=== PATIENT | male | born 1935 | race Caucasian/White ===

== ENCOUNTER → 2016-12-12 | Outpatient (CLI) | payer OTHER ==
[~2016-12-12] MED LIST: ACET325T96 PO; FAMO20TA11 PO; PILO5TAB10 PO
[2016-12-12 13:55] VITALS: BP 91/52; PULSE 90; TEMP 36.8; O2SAT 95
--- NOTE | 2016-12-12 16:14 | Radiation Oncology Follow-Up ---
Radiation Oncology Follow-Up Date of Visit Dec 12, 2016. 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 Frias is a 81-year-old gentleman who initially presented in July 2015 with a sore throat and hoarseness of the throat. He was seen by Dr. Klein who performed an examination which showed edema in the left piriform sinus and left vocal cord paresis. He did order a CT neck which was completed on 07/14/2015 which showed: "Pharynx: The nasopharynx and oropharynx are normal in appearance. There is ill-defined abnormal soft tissue seen within the laryngopharynx eccentric to the left at the level of the thyroid cartilage at or just above the level of the false cords. This is highly concerning for mass lesion and is best seen on image #155. This measures approximately 2 x 2.5 cm in diameter. This causes narrowing of the pharyngeal airway at this level, and also causes mild mass effect on the left piriform sinus There is no clear evidence of invasion of the parapharyngeal fat. The vocal cords are symmetric as imaged. The prevertebral/retropharyngeal soft tissues are within normal limits. Lymphadenopathy: No cervical lymphadenopathy is seen." He also had a CT chest completely the same day which only showed 2 subcentimeter pulmonary nodules and he was recommended only to follow up with repeat imaging in 1 year. The patient was then seen by Dr. 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 At that time, the patient also had a gastrostomy tube placed and a tracheostomy placed as well. The patient underwent a PET/CT scan on 09/29/2015 which revealed a 3.5 cm mass in the region of the left piriform sinus extending inferiorly to the left arytenoid cartilage with SUV uptake of 13.2. There was no noted cervical lymphadenopathy. There was also no evidence of any other metastatic disease. The patient's case was discussed in the multidisciplinary clinic and the patient was also seen by radiation oncology (Dr. Marion). The final recommendation was for consideration of definitive chemotherapy and radiation therapy. Status post completion of combined radiation and chemotherapy. Radiation completed 12/31/2015 received 6996 cGy. (Sandra Mckeon PA-C) Interim History He has been doing well over the past 6 months. He does have issues with xerostomia. This occurs especially at night. He does run a humidifier in his room. He is using Biotene products. He has edema of the chin. He was referred to lymphedema therapy and received treatment. He does feel that it did help with some swelling. He had previously been followed by Dr. Girard and is now being followed by Dr. Jefferson. He had a scoping 2 weeks ago and is doing well with no recurrence. He does have some hoarseness of the voice. He has developed an area of discomfort in the epigastric area where he had his PEG tube. He notes that after eating a distention is noted that becomes firm. This is quite uncomfortable and he has to sit and relax for a period of time till the firm area goes down. He denies any associated nausea or vomiting. (Sandra Mckeon PA-C) Allergies Coded Allergies: No Known Allergies (Unverified , 12/02/15) Home Medications Scheduled Famotidine (Pepcid), 20 MG PO BID Scheduled PRN Acetaminophen Tab (Tylenol), 650 MG PO Q6 PRN for Mild Pain Review of Systems Gastrointestinal: Symptoms: WNL Oral: Symptoms: Scant Saliva/Dry Mouth Other Oral Symptoms: " I carry a water bottle with me all the time " Respiratory: Symptoms: Dry Cough, SOB With Exertion Urinary: Symptoms: Nocturia Comments: nocturia 4 - 5 times- drinks water all the time Skin: Other Skin Symptoms: had skin cancer removed from right arm, left hand and right side of head (Sandra Mckeon PA-C) Physical Exam Vital Signs Date Time Temp Pulse Resp B/P Pulse Ox O2 Delivery O2 Flow Rate FiO2 12/12/16 13:55 36.8 90 20 91/52 95 Pain: Side: Bilateral Patient Pain Scale: 0 - 10 Initial Pain Intensity: 0.0 Fatigue: None General Appearance: no apparent distress Eyes: normal inspection, EOMI ENT: normal ENT inspection, hearing grossly normal Neck: no adenopathy, + pertinent finding (submental edema) Respiratory/Chest: lungs clear, no respiratory distress, no accessory muscle use Cardiovascular: regular rate, rhythm, no gallop, no murmur Abdomen: non tender, soft, no organomegaly, + hernia (there is a palpable hernia in the epigastric area. Scar is noted from the prior PEG tube.) Extremities: no pedal edema Neurologic/Psychiatric: no motor/sensory deficits, alert, normal mood/affect Skin: warm/dry Lymphatic: no adenopathy (Sandra Mckeon PA-C) Laboratory Studies Test 09/21/16 14:17 White Blood Count 4.56 K/uL (4.8-10.8) Red Blood Count 4.27 M/uL (4.7-6.1) Hemoglobin 12.7 g/dL (14.0-18.0) Hematocrit 38.3 % (42-52) Mean Corpuscular Volume 89.7 fL (80-100) Mean Corpuscular Hemoglobin 29.7 pg (25-34) Mean Corpuscular Hemoglobin Concent 33.2 g/dl (32-36) Platelet Count 152 K/uL (130-400) Mean Platelet Volume 10.2 fL (7.4-10.4) Neutrophils (%) (Auto) 59.4 % Lymphocytes (%) (Auto) 25.7 % Monocytes (%) (Auto) 12.5 % Eosinophils (%) (Auto) 2.0 % Basophils (%) (Auto) 0.2 % Neutrophils # (Auto) 2.71 K/uL (1.4-6.5) Lymphocytes # (Auto) 1.17 K/uL (1.2-3.4) Monocytes # (Auto) 0.57 K/uL (0.11-0.59) Eosinophils # (Auto) 0.09 K/uL (0-0.5) Basophils # (Auto) 0.01 K/uL (0-0.2) RDW Standard Deviation 42.7 fL (36.4-46.3) RDW Coefficient of Variation 13.1 % (11.5-14.5) Immature Granulocyte % (Auto) 0.2 % Immature Granulocyte # (Auto) 0.01 K/uL (0.00-0.02) Sodium Level 141 mmol/L (136-145) Potassium Level 3.9 mmol/L (3.5-5.1) Chloride Level 107 mmol/L (98-107) Carbon Dioxide Level 27 mmol/L (21-32) Anion Gap 7.0 mmol/L (3-11) Blood Urea Nitrogen 12 mg/dl (7-18) Creatinine 0.73 mg/dl (0.60-1.40) Est Creatinine Clear Calc Drug Dose 86.0 ml/min Estimated GFR () 102.2 Estimated GFR (Non- 88.2 BUN/Creatinine Ratio 16.6 (10-20) Random Glucose 92 mg/dl (70-99) Calcium Level 9.0 mg/dl (8.5-10.1) Total Bilirubin 0.3 mg/dl (0.2-1) Aspartate Amino Transferase (AST) 21 U/L (15-37) Alanine Aminotransferase (ALT) 21 U/L (12-78) Alkaline Phosphatase 84 U/L (45-117) Lactate Dehydrogenase 164 U/L (87-241) Total Protein 7.2 gm/dl (6.4-8.2) Albumin 3.6 gm/dl (3.4-5.0) Globulin 3.6 gm/dl (2.5-4.0) Albumin/Globulin Ratio 1.0 (0.9-2) (Sandra Mckeon PA-C) Assessment & Plan The patient was seen and examined by Dr. Hebert. He'll continue the follow-up scoping's through ENT. A prescription was given for Salagen 5 mg to take 1 at bedtime to see if this helps with his xerostomia. He'll continue with the Biotene products as well as humidification. He can continue massage treatment to the submental area. He is being referred to surgery for the hernia in the epigastric area that occurred post-PEG tube placement. We asked him to return to our office in 6 months. He may change that to 9 and alternate with . (Sandra Mckeon PA-C) I agree with note created by Sandra Mckeon PA-C. I reviewed the patient's chart and information with her. I have examined and evaluated the patient. I reviewed relevant clinical information and answered the patient's and/or family' s questions. (Veeral. Hebert MD) Total Time In Follow-Up I spent 25 minutes speaking to the patient and performing examination. I spent 15 minutes reviewing information in completing this note. (Sandra Mckeon PA-C) I spent 15 minutes examining and counseling the patient. (Veeral. Hebert MD) Copy To Lorne Perez MD; Harry Rodriguez M.D.
== END | disposition home or self-care (01) ==
LOC: C.ONC 13:36
PROVIDERS: ATTEND Physician Assistant Medical
DX: Z08 Encounter for follow-up examination after completed treatment for malignant neoplasm (principal); Z92.3 Personal history of irradiation; Z85.819 Personal history of malignant neoplasm of unspecified site of lip, oral cavity, and pharynx

== ENCOUNTER → 2016-12-29 | Day surgery (SDC) | payer OTHER ==
[2016-12-18 14:47] VITALS: Ht 177.8 cm; Wt 83.6 kg
[~2016-12-29] VITALS: Ht 177.8 cm; Wt 83.6 kg
[~2016-12-29] MED LIST changes: -ACET325T96 PO; +LIDOCAINE HCL 2% 2 ML VIAL (20MG/ML) ONE; +ONDANSETRON INJ 2 MG/ML 2 ML VIAL ONE; +PROPOFOL IV EMULSION 10 MG/ML 20 ML VIAL IV ONE; +SODIUM CHLORIDE 0.9% 500ML 500 ML IV ONE
--- NOTE | 2016-12-29 10:41 | Endo History and Physical ---
History & Physical Date of Service: Dec 29, 2016. Chief Complaint: screening Referring Physician: Dr. Harry Rodriguez History of Present Illness 81 yo CM who presents for screening colonoscopy. Past Medical History Reflux, Cancer Past Surgical History Hx Cardiac Surgery: No Hx Internal Defibrillator: No Hx Pacemaker: No Hx Abdominal Surgery: No Hx of Implantable Prosthesis: No Hx Post-Op Nausea and Vomiting: No Hx Cancer Surgery: Yes (BCC REMOVAL, THROAT BIOPSY) Hx Thoracic Surgery: No Hx Orthopedic: No Hx Urinary Tract Surgery: No Family History None Social History Smoking Status: Former Smoker Hx Substance Use: No Hx Alcohol Use: Yes (QUIT 17 YEARS AGO) Allergies Coded Allergies: No Known Allergies (Verified , 12/29/16) Current Medications Reported Home Medications Medications Dose Route/Sig Max Daily Dose Days Date Category Salagen (Pilocarpine HCl) 5 Mg Tab 5 Mg PO HS 12/18/16 Reported Pepcid (Famotidine) 20 Mg Tab 20 Mg PO BID 10/27/15 Reported Vital Signs Weight (Kilograms): 83.64 Height (Feet): 5 Height (Inches): 10 Physical Exam General Appearance: WD/WN, no apparent distress Respiratory/Chest: Auscultation: breath sounds normal Cardiovascular: Heart Auscultation: RRR Abdomen: Bowel Sounds: normal Inspection & Palpation: soft, non-distended, no tenderness, guarding & rebound Assessment and Plan Assessment: 81 yo CM who presents for screening colonoscopy. Plan: Proceed with colonoscopy.
--- NOTE | 2016-12-29 11:36 | GI REPORT ---
Procedure Date: 12/29/2016 11:02 AM Procedure: Colonoscopy Indications: Screening for colorectal malignant neoplasm Medicines: Monitored Anesthesia Care Complications: No immediate complications. Estimated Blood Loss: Estimated blood loss: none. Procedure: Pre-Anesthesia Assessment: - Prior to the procedure, a History and Physical was performed, and patient medications and allergies were reviewed. The patient's tolerance of previous anesthesia was also reviewed. The risks and benefits of the procedure and the sedation options and risks were discussed with the patient. All questions were answered, and informed consent was obtained. Prior Anticoagulants: The patient has taken no previous anticoagulant or antiplatelet agents. ASA Grade Assessment: III - A patient with severe systemic disease. After reviewing the risks and benefits, the patient was deemed in satisfactory condition to undergo the procedure. After I obtained informed consent, the scope was passed under direct vision. Throughout the procedure, the patient's blood pressure, pulse, and oxygen saturations were monitored continuously. The On-site loaner was introduced through the anus and advanced to the terminal ileum. The colonoscopy was performed without difficulty. The patient tolerated the procedure well. The quality of the bowel preparation was good. The terminal ileum, ileocecal valve, appendiceal orifice, and rectum were photographed. Findings: Four sessile polyps were found in the sigmoid colon. The polyps were 5 to 7 mm in size. These polyps were removed with a hot snare. Resection and retrieval were complete. Multiple small-mouthed diverticula were found in the sigmoid colon. Non-bleeding internal hemorrhoids were found during retroflexion. The hemorrhoids were small. Impression: - Four 5 to 7 mm polyps in the sigmoid colon, removed with a hot snare. Resected and retrieved. - Diverticulosis in the sigmoid colon. - Non-bleeding internal hemorrhoids. Recommendation: - Resume previous diet. - Continue present medications. - Repeat colonoscopy for surveillance based on pathology results. - Return to primary care physician as previously scheduled. Osiel Moore, DO 12/29/2016 11:35:49 AM This report has been signed electronically. Note Initiated On: 12/29/2016 11:02 AM I attest to the content of the Intraoperative Record and orders documented therein, exceptions below
--- NOTE | 2016-12-29 11:38 | Discharge Instructions ---
Endoscopy Patient Instructions Date / Procedure(s) Performed Dec 29, 2016. Colonoscopy Allergy Information Coded Allergies: No Known Allergies (Verified , 12/29/16) Discharge Date / Findings Dec 29, 2016. Colon polyps Diverticulosis Internal hemorrhoids Medication Instructions OK to resume all medications today as prescribed. Reported Home Medications Medications Dose Route/Sig Max Daily Dose Days Date Category Salagen (Pilocarpine HCl) 5 Mg Tab 5 Mg PO HS 12/18/16 Reported Pepcid (Famotidine) 20 Mg Tab 20 Mg PO BID 10/27/15 Reported Provider Instructions Activity Restrictions - No exercising or heavy lifting for 24 hours. - Do not drink alcohol the day of the procedure. - Do not drive a car or operate machinery until the day after the procedure. - Do not make any important decisions or sign important papers in 24 hours after the procedure. Following Day: - Return to full activity which may include returning to work/school. Diet Start your diet with liquids and light foods (jello, soup, juice, toast). Then eat your usual diet if not nauseated. Treatment For Common After Affects For mild abdominal pain, bloating, or excessive gas: - Rest - Eat lightly - Lie on right side Follow-Up Information Follow-up with Dr. Harry Rodriguez as scheduled Anesthesia Information What You Should Know You have had a procedure that required some medicine to reduce anxiety and discomfort. This treatment is called moderate sedation. After receiving the treatment, you may be sleepy, but you will be able to breathe on your own. The effects of the treatment may last for several hours. Follow these instructions along with Activity/Diet recommendations noted above: * Do NOT do anything where dizziness or clumsiness would be dangerous. * Rest quietly at home today, then you can be up and about tomorrow. * Have a responsible person stay with you the rest of today. * You may have had an I.V. today. If so, you may take the dressing off later today. Recommendations Call your doctor if: * Trouble breathing * Continuous vomiting for more than 24 hours * Temperature above 101 degrees * Severe abdominal pain or bloating * Pain not relieved by pain medicine ordered * There is increased drainage or redness from any incision * A large amount of rectal bleeding greater than 2-3 tablespoons. (If you had a polyp/s removed or have hemorrhoids, a small amount of blood - from the rectum is to be expected.) * You have any unanswered questions or concerns. IN THE EVENT OF A SERIOUS EMERGENCY, GO TO THE NEAREST EMERGENCY ROOM Your discharge instructions were prepared by provider Osiel Moore. Patient Instructions Signature Page Dilshad Frias Patient (or Guardian) Signature/Date: I have read and understand the instructions given to me by my caregivers. Caregiver/RN/Doctor Signature/Date: The above-named patient and/or guardian has received patient instructions on this date. + Original Patient Signature Page (only) stays with chart. Please make copy for patient.
[2016-12-29 12:06] VITALS: BP 137/89; PULSE 78; O2SAT 95
--- NOTE | 2016-12-29 12:42 | Anesthesiology Progress Note ---
Anesthesia Post Op Note Date & Time Dec 29, 2016 at 12:42 Vital Signs Pain Intensity: 0 Vital Signs Past 12 Hours Date Time Temp Pulse Resp B/P Pulse Ox O2 Delivery O2 Flow Rate FiO2 12/29/16 12:06 78 20 137/89 95 Room Air 12/29/16 11:51 82 18 107/58 95 Room Air 12/29/16 11:36 86 18 119/59 97 Room Air 12/29/16 10:35 36.8 109 22 180/91 98 Room Air Notes Mental Status: alert / awake / arousable, participated in evaluation Pt Amnestic to Procedure: Yes Nausea / Vomiting: adequately controlled Pain: adequately controlled Airway Patency, RR, SpO2: stable & adequate BP & HR: stable & adequate Hydration State: stable & adequate Anesthetic Complications: no major complications apparent
== END | disposition home or self-care (01) ==
LOC: C.GI 10:12
PROVIDERS: ATTEND Internal Medicine
DX: Z12.11 Encounter for screening for malignant neoplasm of colon (principal); D12.5 Benign neoplasm of sigmoid colon; K57.30 Diverticulosis of large intestine without perforation or abscess without bleeding; K64.8 Other hemorrhoids; K21.9 Gastro-esophageal reflux disease without esophagitis; Z85.828 Personal history of other malignant neoplasm of skin; Z87.891 Personal history of nicotine dependence; Z68.27 Body mass index [BMI] 27.0-27.9, adult; Z98.49 Cataract extraction status, unspecified eye

== ENCOUNTER → 2017-01-11 | Outpatient (CLI) | payer OTHER ==
[~2017-01-11] MED LIST changes: -LIDOCAINE HCL 2% 2 ML VIAL (20MG/ML) ONE; -ONDANSETRON INJ 2 MG/ML 2 ML VIAL ONE; -PROPOFOL IV EMULSION 10 MG/ML 20 ML VIAL IV ONE; -SODIUM CHLORIDE 0.9% 500ML 500 ML IV ONE
== END | disposition home or self-care (01) ==
LOC: C.PATHSPEC 16:39
PROVIDERS: ATTEND Dermatology
DX: L57.0 Actinic keratosis (principal); C44.622 Squamous cell carcinoma of skin of right upper limb, including shoulder; D04.61 Carcinoma in situ of skin of right upper limb, including shoulder

== ENCOUNTER → 2017-02-15 | Outpatient (CLI) | payer OTHER | END | disposition home or self-care (01) | LOC: C.PATHSPEC 16:48 | PROVIDERS: ATTEND Dermatology | DX: L57.0 Actinic keratosis (principal) ==

== ENCOUNTER → 2017-03-23 | Outpatient (CLI) | payer OTHER ==
[~2017-03-23] MED LIST changes: +OPTIRAY 320 IV PRN; -PILO5TAB10 PO
--- NOTE | 2017-03-23 08:01 | DIAGNOSTIC IMAGING REPORT ---
CT OF THE CHEST WITH IV CONTRAST CLINICAL HISTORY: HEAD/NECK CANCER COMPARISON STUDY: 07/14/2015 TECHNIQUE: Following the IV administration of 92 mL of Optiray-320, CT of the thorax was performed from the thoracic inlet to the lung bases. Images are reviewed in the axial, sagittal, and coronal planes. IV contrast was administered without complication. CT DOSE: FINDINGS: There is piriform sinus asymmetry. The findings in the neck will be discussed in a separate CT scan of the neck report Thyroid: Imaged portions of the thyroid gland are normal in appearance. Thoracic aorta: The thoracic aorta is normal in course and caliber, noting standard 3-vessel arch anatomy. No aneurysm or dissection is seen. Pulmonary vasculature: The pulmonary trunk is normal in caliber. There are no central filling defects identified to suggest pulmonary embolus. Note that this examination was not protocoled for the evaluation of pulmonary emboli. HEART: The heart is normal in size and configuration, without pericardial effusion. Lungs and pleural spaces: There are no pleural effusions. There is mild dependent atelectasis. There is no lobar pulmonary consolidation. There are minor apical groundglass opacities. The findings while nonspecific could be secondary to radiation therapy. There is a stable 4 mm right upper lobe perifissural solid pulmonary nodule. There is a stable solid subpleural 4 mm left lower lobe pulmonary nodule. There is a right middle lobe calcified granuloma. Mediastinum: There is no mediastinal lymphadenopathy. Jillian: Clear. Axilla: Clear. Upper abdomen: There is a fat-containing ventral hernia. Skeletal structures: There are no lytic or blastic osseous lesions. IMPRESSION: 1. Partially visualized supraglottic mass. This will be reported separately in a CT scan of the neck. 2. Stable 4 mm right upper lobe pulmonary nodule and stable 4 mm left lower lobe pulmonary nodule 3. 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 Electronically signed by: Iban Kunz M.D. 03/23/2017 8:00 AM Dictated Date/Time: 03/23/2017 7:53 AM
--- NOTE | 2017-03-23 08:02 | DIAGNOSTIC IMAGING REPORT ---
CT soft tissue neck SOFT TISSUE NECK WITH CLINICAL HISTORY: HEAD/NECK CANCER carcinoma TECHNIQUE: Transaxial acquisition of multi axial reformatted images COMPARISON STUDY: 07/14/2015 FINDINGS: Considerable improvement in the exam. The left laryngeal lesion previously described has essentially resolved. There is mild residual fibrotic change. There is no deviation of midline structures. There is no significant cervical adenopathy. Slight increase in fat density is noted bilaterally consistent with post treatment in a post radiation change. Study again is negative for recurrent lesion. No evidence for bony erosive process. Mild apical fibrotic changes the lungs most likely on a post radiation bases. IMPRESSION: 1. Considerable improvement compared to the prior study. 2. The left laryngeal mass lesion has essentially resolved with no significant residual. 3. Mild post treatment and/or post radiation soft tissue change. Electronically signed by: Shorty Santo M.D. 03/23/2017 8:00 AM Dictated Date/Time: 03/23/2017 7:53 AM
== END | disposition home or self-care (01) ==
LOC: C.CTS 07:27
PROVIDERS: ATTEND Internal Medicine Hematology & Oncology
DX: C76.0 Malignant neoplasm of head, face and neck (principal); R91.8 Other nonspecific abnormal finding of lung field

== ENCOUNTER 2017-03-26 04:59 | Day surgery (SDC) | payer OTHER ==
[2017-03-15 08:09] VITALS: BMI 28.0
--- NOTE | 2017-03-15 08:42 | PAT Medication Instructions ---
Service Date Mar 15, 2017. Current Home Medication List Famotidine (Pepcid), 20 MG PO BID Medication Instructions For Your Scheduled Surgery - Hold the following medications the morning of surgery: Famotidine (Pepcid), 20 MG PO BID If you have any questions please call us at [phone] or [phone] or [phone]
[2017-03-15 09:45] LABS: BASO % 0.3 %; BASO ABS # 0.01 K/uL (0-0.2); COMPLETE YES; EOS % 0.3 %; IG% 0.5 %; LYMPH % 26.1 %; LYMPH ABS # 1.02 K/uL (1.2-3.4); MEAN CELL VOLUME 88.1 fL (80-100); MEAN CORPUSCULAR HEMOGLOBIN 28.7 pg (25-34); MEAN CORPUSCULAR HGB CONC 32.6 g/dl (32-36); MEAN PLATELET VOLUME 10.7 fL (7.4-10.4); MONO % 14.3 %; NEUT % 58.5 %; PLATELET COUNT 122 K/uL (130-400); RED BLOOD COUNT 5.22 M/uL (4.7-6.1); WHITE BLOOD COUNT 3.91 K/uL (4.8-10.8)
[2017-03-15 10:26] LABS: CALCIUM 9.1 mg/dl (8.5-10.1); CREATININE 0.9 mg/dl (0.60-1.40); POTASSIUM 4.2 mmol/L (3.5-5.1)
[~2017-03-26] VITALS: Ht 177.8 cm; Wt 88.2 kg
[~2017-03-26 04:59] MED LIST changes: -OPTIRAY 320 IV PRN
[2017-03-26 05:30] VITALS: BP 162/83; PULSE 79; TEMP 36.9; O2SAT 97; Ht 177.8 cm; Wt 88.2 kg
[2017-03-26] MEDS ORDERED: LACTATED RINGER'S 1000ML 1,000 ML IV SCH (06:00)
[2017-03-26] MEDS ORDERED: CEFAZOLIN 2000 MG/60 ML D5W IV SCH (06:00)
[2017-03-26] MEDS ORDERED: PROPOFOL IV EMULSION 10 MG/ML 20 ML VIAL IV ONE (06:44)
[2017-03-26] MEDS ORDERED: FENTANYL CITRATE INJ 50 MCG/1 ML 2 ML VIAL ONE ×2 (06:44→07:40)
[2017-03-26] MEDS ORDERED: LIDOCAINE HCL 2% 2 ML VIAL (20MG/ML) ONE (06:44)
[2017-03-26] MEDS ORDERED: ATROPINE SULFATE 0.1 MG/ML 5ML SYR IV PRN (06:45)
[2017-03-26] MEDS ORDERED: ONDANSETRON INJ 2 MG/ML 2 ML VIAL IV PRN ×2 (06:45→09:00)
[2017-03-26] MEDS ORDERED: EpHEDrine SULFATE INJ 50 MG/ML AMP IV PRN (06:45)
[2017-03-26] MEDS ORDERED: HYDROmorphone INJ 1 MG/ML SYR IV PRN (06:45)
[2017-03-26] MEDS ORDERED: BUPIVACAINE 0.5 % 5 MG/1 ML MPF 30ML VIAL ONE (06:50)
--- NOTE | 2017-03-26 06:50 | History & Physical Bridge Note ---
H&P Re-Evaluation Bridge Note: I have examined the patient, reviewed the History & Physical and in the interval since the performance of the History & Physical I have noted the following changes of clinical significance: No changes noted
[2017-03-26] MEDS ORDERED: NEOSTIGMINE METHYLSULFATE 5 MG/5 ML SYR ONE (07:20)
[2017-03-26] MEDS ORDERED: ONDANSETRON INJ 2 MG/ML 2 ML VIAL ONE (07:20)
[2017-03-26] MEDS ORDERED: DEXAMETHASONE SOD INJ 4 MG/ML VIAL ONE (07:20)
[2017-03-26] MEDS ORDERED: ROCURONIUM BROMIDE 10 MG/ML 5 ML VIAL ONE (07:20)
[2017-03-26] MEDS ORDERED: GLYCOPYRROLATE INJ 0.2 MG/ML VIAL ONE (07:20)
[2017-03-26] MEDS ORDERED: SUCCINYLCHOLINE 100MG/5ML SYR IV ONE (07:45)
[2017-03-26] MEDS: FENTANYL CITRATE INJ 50 MCG/1 ML 2 ML VIAL IV PRN ×4 (08:45→09:00)
[2017-03-26] MEDS ORDERED: SODIUM CHLORIDE 0.9% 1000ML 1,000 ML IV SCH (08:54)
--- NOTE | 2017-03-26 08:54 | [facility] Post Operative Brief Note ---
Immediate Operative Summary Operative Date Mar 26, 2017. Pre-Operative Diagnosis Ventral hernia without obstruction or gangrene (primary encounter diagnosis) Post-Operative Diagnosis Ventral hernia without obstruction or gangrene (primary encounter diagnosis) Procedure(s) Performed Repair of Ventral Hernia Surgeon Dr. Shorty Giron Customer Insight Analyst Surgeon(s) None Estimated Blood Loss 5ML Findings See dictation Specimens None per surgeon Drains None Anesthesia General Complication(s) None Disposition Recovery Room / PACU
--- NOTE | 2017-03-26 08:58 | Discharge Instructions ---
Discharge Instructions Date of Service Mar 26, 2017. Admission Reason for Admission: Ventral Hernia Discharge Discharge Diagnosis / Problem: Same Discharge Goals Goal(s): Decrease discomfort Activity Recommendations Activity Limitations: per Instructions/Follow-up section Lifting Limitations: no more than 10 pounds (for 2 weeks) . Instructions / Follow-Up Instructions / Follow-Up ACTIVITY RECOMMENDATIONS: * Walk as much as possible. * No heavy lifting (>10 lbs.) for 6 weeks. SPECIAL CARE INSTRUCTIONS: * Ice to hernia repair site on and off until bedtime tonight. * May shower in 24 hours. Let water run over area and pat dry. * Leave steri strips on for one week. * Call the surgeon's office with any questions or concerns - (ex. temperature higher than 101 degrees F, excessive bleeding or pain). MEDICATIONS: Resume previous medications unless instructed otherwise by your surgeon. * Ibuprofen 600 mg every 6 hours with food * Percocet 1 every 4 hours, as needed for pain FOLLOW UP VISIT: If not already scheduled, please call the office to schedule a two week follow- up appointment. Office number Current Hospital Diet Patient's current hospital diet: Discharge Diet Recommended Diet: Regular Diet Procedures Procedures Performed: Repair of Ventral Hernia Pending Studies Studies pending at discharge: no Medical Emergencies . Who to Call and When: Medical Emergencies: If at any time you feel your situation is an emergency, please call 911 immediately. . Non-Emergent Contact Non-Emergency issues call your: Primary Care Provider, Surgeon Call Non-Emergent contact if: your pain is worsening, wound has increased redness, wound has increased pain . "Provider Documentation" section prepared by Shorty Giron. . VTE Core Measure Inpt VTE Proph given/why not?: Treatment not indicated
[2017-03-26] MEDS ORDERED: MoRPHine SULFATE 4 MG/ML 1 ML CARP\\VIAL IV PRN (09:00)
[2017-03-26] MEDS ORDERED: OXYCODONE/ACETAMINOPHEN 5-325 TAB PO PRN (09:00)
[2017-03-26 09:25] VITALS: BP 167/82; PULSE 69; TEMP 36.1; O2SAT 97
--- NOTE | 2017-03-26 09:26 | Anesthesiology Progress Note ---
Anesthesia Post Op Note Date & Time Mar 26, 2017 at 09:26 Vital Signs Pain Intensity: 3 Vital Signs Past 12 Hours Date Time Temp Pulse Resp B/P (MAP) Pulse Ox O2 Delivery O2 Flow Rate FiO2 03/26/17 09:10 36.5 60 16 172/72 96 Oxymask 3 03/26/17 09:00 63 16 166/85 97 Oxymask 3 03/26/17 08:50 36.3 62 16 165/86 99 Oxymask 6 03/26/17 08:42 36.3 65 18 176/88 100 Oxymask 10 03/26/17 05:30 36.9 79 20 162/83 (109) 97 Room Air Notes Mental Status: alert / awake / arousable, participated in evaluation Pt Amnestic to Procedure: Yes Nausea / Vomiting: adequately controlled Pain: adequately controlled Airway Patency, RR, SpO2: stable & adequate BP & HR: stable & adequate Hydration State: stable & adequate Anesthetic Complications: no major complications apparent
--- NOTE | 2017-03-26 09:39 | OPERATIVE REPORT ---
DATE OF OPERATION: 03/26/2017 PREOPERATIVE DIAGNOSIS: Ventral hernia. POSTOPERATIVE DIAGNOSIS: Same. PROCEDURE: Repair of ventral hernia. SURGEON: Dr. Giron. FINDINGS: The patient had a 2.5-3 cm defect at the site of his previous gastrostomy. There was nothing adherent to the inside of the sac. The stomach was not present in the sac. There were no other defects identified. TECHNIQUE: The patient was given a general anesthetic. The area was prepped and draped in usual sterile fashion. A transverse incision was made over the area of the scar from the gastrostomy carried down through the dermis. The hernia sac was identified and away from the surrounding subcutaneous tissue and off the underside of the dermis of the skin, using a blunt, sharp and cautery dissection, where appropriate. This dissection was carried down until the edges of the fascia could be identified around the entire circumference. The hernia sac was away from the edges of the hernia sac. The hernia sac was opened with findings as stated above. The hernia sac was then closed with running 2-0 Vicryl, and placed back into its anatomic position and the fascia was undermined creating a preperitoneal retrofascial space. Hemostasis was obtained using electrocautery. A 10 cm round Surgimesh was placed in the preperitoneal retrofascial space and tacked to the undersurface of the fascia using 0 PDS sutures. The fascial defect was closed with a #1 PDS. Deep subcutaneous tissue was closed with running 2-0 Vicryl. The superficial subcutaneous tissue was closed with running 3-0 Vicryl and skin was closed with 4-0 Monocryl in a running subcuticular fashion. The skin was anesthetized with 0.5% Marcaine without epinephrine. The skin was cleansed, dried, benzoin placed, Steri-Strips applied. Estimated blood loss was 5 mL. Sponge, needle and instrument counts were correct prior to closure. The patient tolerated the surgical procedure without complication and was transferred to recovery. I attest to the content of the Intraoperative Record and any orders documented therein. Any exception s are noted below.
[2017-03-26 09:55] VITALS: BP 143/78; PULSE 66; O2SAT 94
[2017-03-26 10:25] VITALS: BP 144/73; PULSE 64; O2SAT 93
== END 2017-03-26 11:14 | disposition home or self-care (01) ==
LOC: C.ACU 04:59
PROVIDERS: ATTEND Surgery
DX: K43.9 Ventral hernia without obstruction or gangrene (principal); Z68.28 Body mass index [BMI] 28.0-28.9, adult; Z98.890 Other specified postprocedural states

== ENCOUNTER → 2017-05-10 | Outpatient (CLI) | payer OTHER | END | disposition home or self-care (01) | LOC: C.PATH 17:18 | PROVIDERS: ATTEND Dermatology | DX: C44.320 Squamous cell carcinoma of skin of unspecified parts of face (principal) ==

== ENCOUNTER → 2017-06-21 | Outpatient (CLI) | payer OTHER ==
[2017-06-21 13:45] VITALS: BP 168/77; PULSE 81; TEMP 36.9; O2SAT 95
--- NOTE | 2017-06-21 14:46 | Radiation Oncology Follow-Up ---
Radiation Oncology Follow-Up Date of Visit Jun 21, 2017. 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 Holly is a 81-year-old gentleman who initially presented in July 2015 with a sore throat and hoarseness of the throat. He was seen by Dr. Klein who performed an examination which showed edema in the left piriform sinus and left vocal cord paresis. He did order a CT neck which was completed on 07/14/2015 which showed: "Pharynx: The nasopharynx and oropharynx are normal in appearance. There is ill-defined abnormal soft tissue seen within the laryngopharynx eccentric to the left at the level of the thyroid cartilage at or just above the level of the false cords. This is highly concerning for mass lesion and is best seen on image #155. This measures approximately 2 x 2.5 cm in diameter. This causes narrowing of the pharyngeal airway at this level, and also causes mild mass effect on the left piriform sinus There is no clear evidence of invasion of the parapharyngeal fat. The vocal cords are symmetric as imaged. The prevertebral/retropharyngeal soft tissues are within normal limits. Lymphadenopathy: No cervical lymphadenopathy is seen." He also had a CT chest completely the same day which only showed 2 subcentimeter pulmonary nodules and he was recommended only to follow up with repeat imaging in 1 year. The patient was then seen by Dr. 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 At that time, the patient also had a gastrostomy tube placed and a tracheostomy placed as well. The patient underwent a PET/CT scan on 09/29/2015 which revealed a 3.5 cm mass in the region of the left piriform sinus extending inferiorly to the left arytenoid cartilage with SUV uptake of 13.2. There was no noted cervical lymphadenopathy. There was also no evidence of any other metastatic disease. The patient's case was discussed in the multidisciplinary clinic and the patient was also seen by radiation oncology (Dr. Marion). The final recommendation was for consideration of definitive chemotherapy and radiation therapy. Status post completion of combined radiation and chemotherapy. Radiation completed 12/31/2015 received 6996 cGy. Interim History He's been doing well over the past 6 months. He has noted no change in the voice quality. 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 At his last visit he was given Salagen. He was to take 1 at bedtime to help with the dryness of the mouth at night. He stated that this did not help. We also have recommended hydration with a humidifier in his room at night. He also feels that this did not help. He has been seen and followed up by ENT and did have a recent scoping. This was performed on 06/07/2017. This showed stable significant post radiation edema involving the arytenoids and the interarytenoid region, there is no definite mass or lesion. Overall his glottic airway is narrowed and true vocal cord fold mobility is limited. 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 He was seen at the lymphedema clinic. He was given therapy. He is now discharged from the clinic but continues to do therapy exercises at home as he was instructed. He does note that the edema is much firmer at night compared to in the morning. He has had recheck scanning with CT of the soft tissues of the neck as well as the chest on 03/23/2017. This was reviewed with him by Dr. galeano. He was pleased to hear that this has shown considerable improvement. Allergies Coded Allergies: No Known Allergies (Verified , 03/26/17) Home Medications Scheduled Famotidine (Pepcid), 20 MG PO BID Review of Systems Gastrointestinal: Symptoms: WNL Oral: Symptoms: No Problems Respiratory: Symptoms: WNL, Dry Cough, SOB With Exertion Other Respiratory: Currently getting over a cold Urinary: Symptoms: WNL Skin: Symptoms: No Problems Physical Exam Vital Signs Date Time Temp Pulse Resp B/P (MAP) Pulse Ox O2 Delivery O2 Flow Rate FiO2 06/21/17 13:45 36.9 81 20 168/77 95 Fatigue: None General Appearance: no apparent distress Eyes: normal inspection, EOMI ENT: normal ENT inspection, hearing grossly normal, pharynx normal (there are no visible lesions of the tongue, buccal mucosa, floor the mouth, and pharynx.) Neck: no adenopathy, thyroid normal, + pertinent finding (there is firm submental edema. There are no masses or tenderness and no lymphadenopathy.) Respiratory/Chest: lungs clear, no respiratory distress, no accessory muscle use Cardiovascular: regular rate, rhythm, no gallop, no murmur Neurologic/Psychiatric: no motor/sensory deficits, alert, normal mood/affect Skin: warm/dry Additional Studies Patient: OLY HOLLY Address1: [address] [place] [address] Rec: [id number] Address2: Acct ID: [id number] [facility] Zip: [place] [address] Date: 1935 Sex: M Room/Bed: Ref Phy: Harry Rodriguez M.D. SC: C.CTS Att Phy: Oly Fuentes D.O. Report #: [id number] Mary Phy: Harry Rodriguez M.D. Test: NCKW Admit Phy: Gas Regulator Repairer Helper: GUILLERMO Interpreting Phy: Shorty Santo M.D. Diagnosis: HEAD/NECK CA Ordering Phy: Oly Fuentes D.O. Service Date: 03/23/17 Admit Date: 03/23/17 MNE: [id number] CONF: DICTATED BY: Shorty Santo M.D.]] CC: Oly Fuentes D.O., Dennis, M.D. Endcc: [~ rep ct add3]] CT soft tissue neck SOFT TISSUE NECK WITH CLINICAL HISTORY: HEAD/NECK CANCER carcinoma TECHNIQUE: Transaxial acquisition of multi axial reformatted images COMPARISON STUDY: 07/14/2015 FINDINGS: Considerable improvement in the exam. The left laryngeal lesion previously described has essentially resolved. There is mild residual fibrotic change. There is no deviation of midline structures. There is no significant cervical adenopathy. Slight increase in fat density is noted bilaterally consistent with post treatment in a post radiation change. Study again is negative for recurrent lesion. No evidence for bony erosive process. Mild apical fibrotic changes the lungs most likely on a post radiation bases. IMPRESSION: 1. Considerable improvement compared to the prior study. 2. The left laryngeal mass lesion has essentially resolved with no significant residual. 3. Mild post treatment and/or post radiation soft tissue change. Electronically signed by: Shorty Santo M.D. 03/23/2017 8:00 AM Dictated Date/Time: 03/23/2017 7:53 AM Assessment & Plan Plan: Continue regular follow-up with ENT with recheck scoping. He was seen on 06/07/2017. He has a recheck appointment to be seen there again in 6 months. We asked him to return to our office in 1 year. He may call if he has any questions or concerns in the interim. Total Time In Follow-Up I spent 20 minutes speaking to the patient and performing examination. I spent 15 minutes reviewing information in completing this note. Copy To Lorne Perez MD; Harry Rodriguez M.D.
== END | disposition home or self-care (01) ==
LOC: C.ONC 13:11
PROVIDERS: ATTEND Physician Assistant Medical
DX: Z08 Encounter for follow-up examination after completed treatment for malignant neoplasm (principal); Z92.3 Personal history of irradiation; Z85.818 Personal history of malignant neoplasm of other sites of lip, oral cavity, and pharynx

== ENCOUNTER → 2017-12-28 | Outpatient (CLI) | payer OTHER | END | disposition home or self-care (01) | LOC: C.PATHSPEC 17:29 | PROVIDERS: ATTEND Dermatology | DX: L57.0 Actinic keratosis (principal) ==

== ENCOUNTER 2020-08-25 02:41 | Observation (INO) ==
[2020-08-25] MEDS ORDERED: SODIUM CHLORIDE 0.9% 500 ML IV ONE (03:07)
[2020-08-25] MEDS ORDERED: ACETAMINOPHEN 500 MG TAB PO STA (03:07)
[2020-08-25] MEDS ORDERED: ONDANSETRON INJ 2 MG/ML 2 ML VIAL IV STA (03:07)
--- NOTE | 2020-08-25 03:13 | Emergency Department Note ---
Impression & Plan COVID-19 ED Provider Note NAME: OLY HOLLY AGE: 85 SEX: M ARRIVES VIA: Ambulance INFORMANT: Patient ED PROVIDER(S): Vani Walker DO CHIEF COMPLAINT: Weakness, vomiting, diarrhea PLAN: Disposition: Admitted by the [facility] hospitalist Condition: Fair MEDICAL DECISION MAKING: This is an 85-year-old male patient with a known exposure to COVID-19 who presents to the emergency department with fever, diarrhea, weakness and vomiting. The patient was found to be borderline hypoxic with an O2 saturation of 90% on room air. The patient has a history of tobacco abuse. He states that he is always short of breath. On physical exam, he had coarse breath sounds at the left lung base and I was concerned for the possibility of pneumonia. He was started on IV Zosyn and Solu-Medrol. Covid testing was positive. He remained hemodynamically stable and had no further episodes of diarrhea or vomiting while here in the emergency department. I discussed the case with the [facility] pitalist and they will evaluate for further management. Triage Nursing notes reviewed and agree them. Prior medical records reviewed Vital Signs: reviewed and remarkable for tachycardia Differential diagnosis: COVID-19, dehydration, pneumonia ER treatment provided: IV normal saline, p.o. Tylenol, IV Zofran, IV Zosyn, IV Solu-Medrol Diagnostics interpreted by me: ECG: Sinus tachycardia at [address] segment elevation or signs of ischemia. Cardiac Monitoring: Normal sinus rhythm at a rate of 96 Laboratory studies: See below Imaging studies: As per my interpretation Chest x-ray: Cardiomegaly with possible early infiltrate in the left lung base HPI: 85/M arrives for evaluation of weakness. The patient has developed increasing weakness over the past couple of days and became more concerned tonight when he developed episodes of vomiting. The patient was exposed to his daughter over the past couple of days who is Covid positive. He has also been suffering from diarrhea. The patient does describe some shortness of breath but states that he is normally short of breath secondary to his history of smoking in the past. EMS was called and they noted a temperature of 100.7 F. The patient continued to dry heave in route here to the hospital. ROS: See above HPI for pertinent positives & negatives. A total of 10 systems reviewed and were otherwise negative. PAST MEDICAL HISTORY:See Below PAST SURGICAL HISTORY:See Below FAMILY HISTORY:See Below SOCIAL HISTORY:See Below HOME MEDICATIONS:See list ALLERGIES:None VITALS:See Below PHYSICAL EXAMINATION: HEENT: Head - normocephalic and atraumatic Pupils are equal, round, and reactive to light. Extraocular eye muscles are intact, and sclera are anicteric. Nose - moist nasal mucosa without discharge. Mouth - moist buccal mucosa. Oropharynx is nonerythematous and there is no tonsillar exudate or e serene noted. Neck: Supple; no JVD or nuchal rigidity Heart: Regular rate and rhythm. There is a normal S1 and S2 with no murmurs, clicks, or gallops appreciated. Lungs: Diminished breath sounds in all lung taylor with coarse breath sounds at the left lung base concerning for possible pneumonia Abdomen: Soft, completely nontender, nondistended, with good bowel sounds. There are no palpable pulsatile masses or hepatosplenomegaly. There is no guarding, rigidity, or rebound noted. Extremities: No evidence of cyanosis, clubbing, or edema. There are easily palpable peripheral pulses. Skin: warm and dry with good turgor and no rashes. ED COURSE: Times/Reassessments: 0255: The patient was evaluated in room C5. A complete history and physical was performed. A septic protocol was performed. I donned complete PPE as there was concern for COVID-19. An order was placed for continuous cardiac monitoring. The patient was in a normal sinus rhythm at a rate of 96. Twelve-lead EKG was obtained as described above The patient was given a gram of oral Tylenol. He was started on a 500 cc bolus of normal saline solution. He was given 4 mg of IV Zofran for his nausea. The patient was swabbed for Covid. He remained hemodynamically stable. He had a chest x-ray which was concerning for possible early left lower lobe infiltrate. This in conjunction with his physical exam and borderline hypoxia, I was concerned for pneumonia. The wesley ent was given an IV dose of Zosyn and Solu-Medrol. His Covid testing was positive. 0435: I reevaluated the patient at this time and he was hemodynamically stable and sleeping. I woke him up to reviewed the results of the x-ray and laboratory testing. I discussed the case with the [facility] hospitalist and they will evaluate for further management. 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, stage IV (thyroid cartilage invasion) Status post completion of combined radiation and chemotherapy Radiation completed 12/31/2015 received 6996 cGy" On 10/27/15 15:29 Elmer Hebert wrote "DIAGNOSIS: Hypopharynx, right piriform sinus,SCC, p16 negative, 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, 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 Surgical History H/O knee surgery History of cataract surgery History of colonoscopy History of left knee surgery History of sinus surgery Biopsy History of skin surgery History of tonsillectomy Status post Mohs surgery Family History Father Cancer Social History Smoking Status: Former smoker Second Hand Exposure: No; Hx Alcohol Use: No Hx Substance Use: No Preferred Language: German [employer] Contemporary [employer] Curator Required: No Beliefs That Will Affect Care: None Current Living Situation: Family Current Living Situation Comment: lives with son and daughter Feels Safe at Home: Yes Assistive Devices: Oxygen - Continuous Allergies Allergies Allergy/AdvReac Type Severity Reaction Status Date / Time No Known Drug Allergies Allergy Unknown Verified 08/25/20 03:28 Home Meds Previous Rx's Medication Instructions Recorded famotidine 20 mg tablet 20 mg PO BID #60 tab 10/09/19 metoprolol succinate 25 mg 25 mg PO DAILY #90 tab 03/17/20 tablet,extended release 24 hr dexamethasone 0.1 % eye 1 applic OT BID PRN #5 ml 04/02/20 drops,suspension mometasone 0.1 % topical cream 1 applic TOP DAILY PRN #15 gm 05/18/20 Results & Data (ED) Vital Signs Vital Signs - 24 hr 08/25/20 03:30 08/25/20 03:38 08/25/20 03:46 Pulse Rate 105 H 110 H 104 H Pulse Rate from SpO2 Sensor 107 H 111 H 105 H Respiratory Rate 22 19 24 Respiratory Effort / Characteristics Non-Labored Blood Pressure 163/144 H 160/82 H 142/77 H Blood Pressure Mean 156 112 95 Pulse Oximetry 97 96 95 Oxygen Delivery Method Nasal Cannula Nasal Cannula Nasal Cannula Oxygen Flow Rate 2 2 2 08/25/20 04:00 08/25/20 04:12 08/25/20 04:15 Pulse Rate 109 H 106 H Pulse Rate from SpO2 Sensor 108 H 106 H Respiratory Rate 20 19 24 Respiratory Effort / Characteristics Non-Labored Blood Pressure 143/67 H 148/74 H Blood Pressure Mean 89 96 Pulse Oximetry 98 97 99 Oxygen Delivery Method Nasal Cannula Nasal Cannula Nasal Cannula Oxygen Flow Rate 2 2 2 08/25/20 04:30 08/25/20 04:45 08/25/20 05:00 Pulse Rate 102 H 109 H 107 H Pulse Rate from SpO2 Sensor 102 H 108 H 110 H Respiratory Rate 22 23 25 H Respiratory Effort / Characteristics Non-Labored Non-Labored Blood Pressure 133/71 137/69 141/72 H Blood Pressure Mean 97 78 92 Pulse Oximetry 97 95 95 Oxygen Delivery Method Nasal Cannula Nasal Cannula Nasal Cannula Oxygen Flow Rate 2 2 2 08/25/20 05:15 Pulse Rate 106 H Pulse Rate from SpO2 Sensor 106 H Respiratory Rate 23 Respiratory Effort / Characteristics Blood Pressure 129/67 Blood Pressure Mean 80 Pulse Oximetry 95 Oxygen Delivery Method Nasal Cannula Oxygen Flow Rate 2 Laboratory Data Result diagrams: 08/25/20 03:33 08/25/20 03:33 Lab Results 08/25/20 08/25/20 08/25/20 Range/Units 03:33 03:33 03:33 WBC 1.43 L (4.8-10.8) K/uL RBC 5.15 (4.7-6.1) M/uL Hgb 14.9 (14.0-18.0) g/dL Hct 45.2 (42-52) % MCV 87.8 (80-100) fL MCH 28.9 (25-34) pg MCHC 33.0 (32-36) g/dL RDW Std Deviation 42.4 (36.4-46.3) fL RDW Coeff of Mikhail 13.2 (11.5-14.5) % Plt Count 51 L (130-400) K/uL MPV 12.9 H (7.4-10.4) fL Immature Gran % (Auto) 2.1 % Neut % (Auto) 52.4 % Lymph % (Auto) 22.4 % [place] % (Auto) 23.1 % Eos % (Auto) 0.0 % Baso % (Auto) 0.0 % Neut # (Auto) 0.75 L* (1.4-6.5) K/uL Lymph # (Auto) 0.32 L (1.2-3.4) K/uL [place] # (Auto) 0.33 (0.11-0.59) K/uL Eos # (Auto) 0.00 (0-0.5) K/uL Baso # (Auto) 0.00 (0-0.2) K/uL Immature Gran # (Auto) 0.03 H (0.00-0.02) K/uL PT 11.6 (9.0-12.0) Seconds INR 1.1 (0.9-1.1) APTT 30.5 (21.0-31.0) Seconds PTT Ratio 1.1 Sodium 137 (136-145) mmol/L Potassium 4.2 (3.5-5.1) mmol/L Chloride 104 (98-107) mmol/L Carbon Dioxide 26 (21-32) mmol/L Anion Gap 7.0 (3-11) BUN 13 (7-18) mg/dl Creatinine 1.15 (0.6-1.4) mg/dl Est Cr Clr Drug Dosing 55.3 ml/min Est GFR ( Amer) 67.8 Est GFR (Non-Af Amer) 58.5 BUN/Creatinine Ratio 11.3 (10-20) Glucose 134 H (70-99) mg/dl Lactate (0.4-2.0) mmol/L Calcium 8.6 (8.5-10.1) mg/dl Magnesium 2.0 (1.8-2.4) mg/dl Total Bilirubin 0.5 (0.2-1) mg/dl AST 25 (15-37) U/L ALT 20 (12-78) U/L Alkaline Phosphatase 67 (45-117) U/L Troponin I < 0.015 (0-0.045) ng/ml Total Protein 8.0 (6.4-8.2) gm/dl Albumin 3.9 (3.4-5.0) gm/dl Globulin 4.1 H (2.5-4.0) gm/dl Albumin/Globulin Ratio 1.0 (0.9-2) COVID-19 Eval Order SARS-CoV-2, RNA, NAAT (NEGATIVE) 08/25/20 08/25/20 08/25/20 Range/Units 03:33 03:33 03:33 WBC (4.8-10.8) K/uL RBC (4.7-6.1) M/uL Hgb (14.0-18.0) g/dL Hct (42-52) % MCV (80-100) fL MCH (25-34) pg MCHC (32-36) g/dL RDW Std Deviation (36.4-46.3) fL RDW Coeff of Mikhail (11.5-14.5) % Plt Count (130-400) K/uL MPV (7.4-10.4) fL Immature Gran % (Auto) % Neut % (Auto) % Lymph % (Auto) % [place] % (Auto) % Eos % (Auto) % Baso % (Auto) % Neut # (Auto) (1.4-6.5) K/uL Lymph # (Auto) (1.2-3.4) K/uL [place] # (Auto) (0.11-0.59) K/uL Eos # (Auto) (0-0.5) K/uL Baso # (Auto) (0-0.2) K/uL Immature Gran # (Auto) (0.00-0.02) K/uL PT (9.0-12.0) Seconds INR (0.9-1.1) APTT (21.0-31.0) Seconds PTT Ratio Sodium (136-145) mmol/L Potassium (3.5-5.1) mmol/L Chloride (98-107) mmol/L Carbon Dioxide (21-32) mmol/L Anion Gap (3-11) BUN (7-18) mg/dl Creatinine (0.6-1.4) mg/dl Est Cr Clr Drug Dosing ml/min Est GFR ( Amer) Est GFR (Non-Af Amer) BUN/Creatinine Ratio (10-20) Glucose (70-99) mg/dl Lactate 1.6 (0.4-2.0) mmol/L Calcium (8.5-10.1) mg/dl Magnesium (1.8-2.4) mg/dl Total Bilirubin (0.2-1) mg/dl AST (15-37) U/L ALT (12-78) U/L Alkaline Phosphatase (45-117) U/L Troponin I (0-0.045) ng/ml Total Protein (6.4-8.2) gm/dl Albumin (3.4-5.0) gm/dl Globulin (2.5-4.0) gm/dl Albumin/Globulin Ratio (0.9-2) COVID-19 Eval [facility] SARS-CoV-2, RNA, NAAT POSITIVE A* (NEGATIVE) Administered Medications Enoxaparin Sodium (Enoxaparin Inj 30 Mg/0.3 Ml Syr) 30 mg SQ Q12H [facility] Stop: 09/24/20 08:59 Last Admin: 08/25/20 20:36 Dose: 30 mg Documented by: [id number] Admin: 08/25/20 08:05 Dose: 30 mg Documented by: [id number] Famotidine (Famotidine 20 Mg Tab) 20 mg PO BID [facility] Stop: 09/24/20 08:59 Last Admin: 08/25/20 20:36 Dose: 20 mg Documented by: [id number] Admin: 08/25/20 08:06 Dose: 20 mg Documented by: [id number] Ceftriaxone Sodium 2,000 mg/ (Dextrose) 70 mls @ 100 mls/hr IV Q24H [facility]; Protocol Stop: 09/01/20 08:59 Last Infusion: 08/25/20 10:23 Dose: 0 mls/hr Documented by: [id number] Admin: 08/25/20 08:05 Dose: 100 mls/hr Documented by: [id number] Dexamethasone Sodium Phosphate (6 mg/ Syringe) 1.5 mls @ 1 mls/min IV QAM JESSIKA Stop: 09/24/20 08:59 Last Admin: 08/25/20 08:05 Dose: 1 mls/min Documented by: [id number] Metoprolol Succinate (Metoprolol Succ 25mg Ext Rel Tab) 25 mg PO DAILY JESSIKA Stop: 09/24/20 08:59 Last Admin: 08/25/20 08:06 Dose: 25 mg Documented by: [id number] Zinc Sulfate (Zinc Sulfate 220 Mg Capsule) 220 mg PO QAM JESSIKA Stop: 09/24/20 08:59 Last Admin: 08/25/20 08:05 Dose: 220 mg Documented by: [id number] Discontinued Medications Acetaminophen (Acetaminophen 500 Mg Tab) 1,000 mg PO NOW STA Stop: 08/25/20 03:08 Last Admin: 08/25/20 03:25 Dose: 1,000 mg Documented by: [id number] Sodium Chloride (Nss) 500 mls @ 999 mls/hr IV .Q31M ONE Stop: 08/25/20 03:37 Last Infusion: 08/25/20 04:07 Dose: 0 mls/hr Documented by: [id number] Admin: 08/25/20 03:36 Dose: 999 mls/hr Documented by: [id number] Piperacillin Sod/Tazobactam Sod (Zosyn) 4.5 gm in 120 mls @ 240 mls/hr IV NOW ONE Stop: 08/25/20 05:04 Last Infusion: 08/25/20 05:25 Dose: 0 mls/hr Documented by: [id number] Admin: 08/25/20 04:55 Dose: 240 mls/hr Documented by: [id number] Azithromycin 500 mg/ Dextrose 255 mls @ 125 mls/hr IV ONE ONE Stop: 08/25/20 08:42 Last Infusion: 08/25/20 10:23 Dose: 0 mls/hr Documented by: [id number] Admin: 08/25/20 08:05 Dose: 125 mls/hr Documented by: [id number] Methylprednisolone (Methylprednisolone 125 Mg/2 Ml Vial) 125 mg IV NOW STA Stop: 08/25/20 04:36 Last Admin: 08/25/20 04:55 Dose: 125 mg Documented by: [id number] Ondansetron HCl (Ondansetron Inj 2 Mg/Ml 2 Ml Vial) 4 mg IV NOW STA Stop: 08/25/20 03:08 Last Admin: 08/25/20 03:36 Dose: 4 mg Documented by: [id number] Discharge Plan Visit Data Chief Complaint: Diarrhea Stated Complaint: WEAK/CHILLS/NAUSEA/VOMITING ED Provider: Vani Walker Discharge Problem: COVID-19 Patient Disposition: Admitted As Inpatient Discharge Instructions Interventions: ED Discharge Assessment Last Done: 08/25/20 05:57
[2020-08-25 04:03] LABS: INR 1.1 (0.9-1.1); Partial Thromboplastin Ratio 1.1; Partial Thromboplastin Time 30.5 Seconds (21.0-31.0); Prothrombin Time 11.6 Seconds (9.0-12.0)
[2020-08-25 04:11] LABS: Alanine Aminotransferase 20 U/L (12-78); Albumin Level 3.9 gm/dl (3.4-5.0); Aspartate Aminotransferase 25 U/L (15-37); BUN Creatinine Ratio 11.3 (10-20); Blood Urea Nitrogen 13 mg/dl (7-18); Calcium 8.6 mg/dl (8.5-10.1); Carbon Dioxide 26 mmol/L (21-32); Creatinine Clr Calc Pharmacy 55.3 ml/min; Est GFR (African American) 67.8; Est GFR (Non-African American) 58.5; Glucose 134 mg/dl (70-99)
[2020-08-25 04:14] LABS: Chloride 104 mmol/L (98-107); Potassium 4.2 mmol/L (3.5-5.1); Sodium 137 mmol/L (136-145)
[2020-08-25 04:16] LABS: Alkaline Phosphatase 67 U/L (45-117); Bilirubin,Total 0.5 mg/dl (0.2-1); Globulin 4.1 gm/dl (2.5-4.0); Troponin I < 0.015 ng/ml (0-0.045)
[2020-08-25] MEDS ORDERED: methylPREDNISolone 125 MG/2 ML VIAL IV STA (04:35)
[2020-08-25] MEDS ORDERED: PIPERACILL/TAZOBAC CONSULT ACTIVE PRN (04:35)
[2020-08-25] MEDS ORDERED: PIPERACILLIN/TAZOBACTAM 4.5 GM/120 ML BAG IV ONE (04:35)
[2020-08-25 05:10] LABS: Hematocrit (blood only) 45.2 % (42-52); Hemoglobin 14.9 g/dL (14.0-18.0); Mean Corpuscular Hemoglobin 28.9 pg (25-34); Mean Corpuscular Volume 87.8 fL (80-100); Mean Platelet Volume 12.9 fL (7.4-10.4); Platelet Count 51 K/uL (130-400); RDW Coefficient of Variation 13.2 % (11.5-14.5); RDW Standard Deviation 42.4 fL (36.4-46.3); Red Blood Count 5.15 M/uL (4.7-6.1); White Blood Count 1.43 K/uL (4.8-10.8)
[2020-08-25 05:45] LABS: Immature Granulocytes # (auto) 0.03 K/uL (0.00-0.02); Immature Granulocytes % (auto) 2.1 %; Lymphocytes # (auto) 0.32 K/uL (1.2-3.4); Lymphocytes % (auto) 22.4 %; Monocytes # (auto) 0.33 K/uL (0.11-0.59); Monocytes % (auto) 23.1 %; Neutrophils # (auto) 0.75 K/uL (1.4-6.5); Neutrophils % (auto) 52.4 %
--- NOTE | 2020-08-25 05:49 | History & Physical Report ---
Date of Service August 25, 2020 Assessment & Plan (1) COVID-19: Patient with Covid-19. Febrile to 100.7, tachycardic, mildly hypoxic to 90% on room air on arrival, now improved to 95% on minimal O2. Leukopenic with lymphopenia, thrombocytopenia as well. -Admit to medical -Maintain precautions, airborne and contact -Check inflammatory markers - ESR, CRP, Ferritin, Ddimer, LDH -Check Procalcitonin -Dexamethasone 6mg IV daily -Convalescent plasma - patient consented in room verbally -Continue Pepcid -Zinc -Pulmonary input appreciated -Lovenox 30 BID -Tylenol PRN -Albuterol PRN Present on Admission?: Yes (2) Hypertension: Chronic. Stable -Continue Metoprolol -Continue to monitor Present on Admission?: Yes (3) Pneumonia: ?LLL PNA - coarse breath sounds in left base focal -Check Procalcitonin -Ceftriaxone/Azithromycin -Follow cultures Present on Admission?: Yes (4) GERD (gastroesophageal reflux disease): Chronic. Stable -Continue Pepcid F/E/N - NSS x 500mL given in ER, encourage PO intake, electrolytes WNL, Regular diet as tolerated Ppx - Lovenox BID Code - Full per discussion with patient Dispo - Admit to medical with telemetry Present on Admission?: Yes History of Present Illness Chief Complaint: Covid-19 Primary Care Provider: Harry Rodriguez MD 85yo C male presenting with Covid-19 PNA. Patient had been in contact with his daughter who recently tested positive for Covid. He was feeling fatigued for the last few days then developed diarrhea, nausea, vomiting and weakness which prompted him to seek medical care. Patient febrile en route to 100.7, mildly hypoxic at 90% on room air on arrival. Currenlty with no complaints. States he feels overall pretty well. Denies CP, palpitations. Last episode of diarrhea prior to arrival. No loss of taste or smell. ER Course: Zosyn, Tylenol, Solumedrol, NSS, Zofran Allergies Allergy/AdvReac Type Severity Reaction Status Date / Time No Known Drug Allergies Allergy Unknown Verified 08/25/20 03:28 Home Medications Medication Instructions Recorded Confirmed Type famotidine 20 mg tablet 20 mg PO BID #60 tab 10/09/19 08/25/20 Rx metoprolol succinate 25 mg 25 mg PO DAILY #90 tab 03/17/20 08/25/20 Rx tablet,extended release 24 hr dexamethasone 0.1 % eye 1 applic OT BID PRN #5 ml 04/02/20 08/25/20 Rx drops,suspension mometasone 0.1 % topical cream 1 applic TOP DAILY PRN #15 gm 05/18/20 08/25/20 Rx Past Med/Surg History Medical History (Updated 08/25/20 @ 05:47 by Agata Tom DO) GERD (gastroesophageal reflux disease) History of gastrostomy tube placement 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, right piriform sinus,SCC, p16 negative, 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, stage IV (thyroid cartilage invasion) Status post completion of combined radiation and chemotherapy Radiation completed 12/31/2015 received 6996 cGy" On 01/07/16 10:48 Sandra Mckeon wrote "DIAGNOSIS: Hypopharynx, right piriform sinus,SCC, p16 negative, 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, stage IV (thyroid cartilage invasion) Status post completion of combined radiation and chemotherapy Radiation completed 12/31/2015 received 6996 cGy" On 10/27/15 15:29 Elmer Anup wrote "DIAGNOSIS: Hypopharynx, right piriform sinus,SCC, p16 negative, 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, 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 Surgical History H/O knee surgery History of cataract surgery History of colonoscopy History of left knee surgery History of sinus surgery Biopsy History of skin surgery History of tonsillectomy Status post Mohs surgery Family History Father Cancer Social History Smoking Status: Former smoker Preferred Language: Vietnamese Beliefs That Will Affect Care: None Feels Safe at Home: Yes Review of Systems Review of Systems: All systems reviewed & are unremarkable except as noted in HPI & below Physical Exam Physical Exam: General: frail, elderly male patient resting comfortably, NAD, non-toxic in appearance, AA&O x 4, hard of hearing Skin: warm, dry, intact, no rashes or lesions HEENT: NC/AT, PERRL, EOMI, anicteric sclera, conjunctiva without injection, external ear normal to inspection and nontender, nares patent, moist mucus membranes, dentition intact, no oropharyngeal lesions, neck supple, trachea midline, no LAD, no thyromegaly, no JVD Heart: +S1/S2, regular, tachycardic, no m/r/g Lungs: equal air entry bilaterally, +rhonchi at left base Abd: +BS, soft, NT/ND, no masses/organomegaly/ascites Ext: warm, 2+ pulses in UE/LE bilaterally, no clubbing/cyanosis or edema Neuro: nonfocal, patient AA&O x 4, speech intact, no facial droop, moving all extremities on command with equal strength 5/5 Results & Data Results & Data ([facility]) Vital Signs (Past 12 Hours) Vital Signs Temp Pulse Resp BP Pulse Ox 08/25/20 05:00 107 H 25 H 141/72 H 95 08/25/20 04:45 109 H 23 137/69 95 08/25/20 04:30 102 H 22 133/71 97 08/25/20 04:15 106 H 24 148/74 H 99 08/25/20 04:12 109 H 19 143/67 H 97 08/25/20 04:00 20 98 08/25/20 03:46 104 H 24 142/77 H 95 08/25/20 03:38 110 H 19 160/82 H 96 08/25/20 03:30 105 H 22 163/144 H 97 08/25/20 03:11 96 08/25/20 03:00 103 H 24 162/94 H 97 08/25/20 02:45 37.9 C H 110 H 21 178/88 H 90 Laboratory Results Lab Results 08/25/20 08/25/20 08/25/20 Range/Units 03:33 03:33 03:33 WBC 1.43 L (4.8-10.8) K/uL RBC 5.15 (4.7-6.1) M/uL Hgb 14.9 (14.0-18.0) g/dL Hct 45.2 (42-52) % MCV 87.8 (80-100) fL MCH 28.9 (25-34) pg MCHC 33.0 (32-36) g/dL RDW Std Deviation 42.4 (36.4-46.3) fL RDW Coeff of Mikhail 13.2 (11.5-14.5) % Plt Count 51 L (130-400) K/uL MPV 12.9 H (7.4-10.4) fL PT 11.6 (9.0-12.0) Seconds INR 1.1 (0.9-1.1) APTT 30.5 (21.0-31.0) Seconds PTT Ratio 1.1 Sodium 137 (136-145) mmol/L Potassium 4.2 (3.5-5.1) mmol/L Chloride 104 (98-107) mmol/L Carbon Dioxide 26 (21-32) mmol/L Anion Gap 7.0 (3-11) BUN 13 (7-18) mg/dl Creatinine 1.15 (0.6-1.4) mg/dl Est Cr Clr Drug Dosing 55.3 ml/min Est GFR ( Amer) 67.8 Est GFR (Non-Af Amer) 58.5 BUN/Creatinine Ratio 11.3 (10-20) Glucose 134 H (70-99) mg/dl Lactate (0.4-2.0) mmol/L Calcium 8.6 (8.5-10.1) mg/dl Magnesium 2.0 (1.8-2.4) mg/dl Total Bilirubin 0.5 (0.2-1) mg/dl AST 25 (15-37) U/L ALT 20 (12-78) U/L Alkaline Phosphatase 67 (45-117) U/L Troponin I < 0.015 (0-0.045) ng/ml Total Protein 8.0 (6.4-8.2) gm/dl Albumin 3.9 (3.4-5.0) gm/dl Globulin 4.1 H (2.5-4.0) gm/dl Albumin/Globulin Ratio 1.0 (0.9-2) COVID-19 Eval Order SARS-CoV-2, RNA, NAAT (NEGATIVE) 08/25/20 08/25/20 08/25/20 Range/Units 03:33 03:33 03:33 WBC (4.8-10.8) K/uL RBC (4.7-6.1) M/uL Hgb (14.0-18.0) g/dL Hct (42-52) % MCV (80-100) fL MCH (25-34) pg MCHC (32-36) g/dL RDW Std Deviation (36.4-46.3) fL RDW Coeff of Mikhail (11.5-14.5) % Plt Count (130-400) K/uL MPV (7.4-10.4) fL PT (9.0-12.0) Seconds INR (0.9-1.1) APTT (21.0-31.0) Seconds PTT Ratio Sodium (136-145) mmol/L Potassium (3.5-5.1) mmol/L Chloride (98-107) mmol/L Carbon Dioxide (21-32) mmol/L Anion Gap (3-11) BUN (7-18) mg/dl Creatinine (0.6-1.4) mg/dl Est Cr Clr Drug Dosing ml/min Est GFR ( Amer) Est GFR (Non-Af Amer) BUN/Creatinine Ratio (10-20) Glucose (70-99) mg/dl Lactate 1.6 (0.4-2.0) mmol/L Calcium (8.5-10.1) mg/dl Magnesium (1.8-2.4) mg/dl Total Bilirubin (0.2-1) mg/dl AST (15-37) U/L ALT (12-78) U/L Alkaline Phosphatase (45-117) U/L Troponin I (0-0.045) ng/ml Total Protein (6.4-8.2) gm/dl Albumin (3.4-5.0) gm/dl Globulin (2.5-4.0) gm/dl Albumin/Globulin Ratio (0.9-2) COVID-19 Eval Order Covid19 [facility] SARS-CoV-2, RNA, NAAT POSITIVE A* (NEGATIVE) PG Care Time/CCT Total # of Minutes Spent Total Time Spent with Patient: Total time spent is greater than 50% in coordination of care (as documented) at patient's floor/unit and/or counseling patient: Coding Level of Care Code 15793 Initial In Care Lvl 3 Diagnoses COVID-19 U07.1 Hypertension I10 Hypertension type: unspecified Pneumonia J18.9 GERD (gastroesophageal reflux disease) K21.9 Esophagitis presence: esophagitis presence not specified (1) Hypertension Hypertension type: unspecified Qualified Code(s): I10 - Essential (primary) hypertension (2) GERD (gastroesophageal reflux disease) Esophagitis presence: esophagitis presence not specified Qualified Code(s): K21.9 - Gastro-esophageal reflux disease without esophagitis
[2020-08-25] MEDS ORDERED: ONDANSETRON INJ 2 MG/ML 2 ML VIAL IV PRN (06:40)
[2020-08-25] MEDS ORDERED: AZITHROMYCIN 500 MG in DEXTROSE 5% 250 ML IV ONE (06:40)
[2020-08-25] MEDS ORDERED: ALBUTEROL HFA 8 GM INHALER INH PRN (06:40)
[2020-08-25] MEDS ORDERED: ACETAMINOPHEN 325 MG TAB PO PRN (06:40)
[2020-08-25 07:59] LABS: D Dimer 2750 ug/L FEU (0-500)
[2020-08-25 08:01] LABS: C Reactive Protein 8.26 mg/dl (0-0.29); Ferritin 559.8 ng/ml (8-388)
[2020-08-25] MEDS: ENOXAPARIN INJ 30 MG/0.3 ML SYR SQ SCH ×2 (08:05→20:36)
[2020-08-25] MEDS: ZINC SULFATE 220 MG CAPSULE PO SCH (08:05)
[2020-08-25] MEDS: DEXAMETHASONE SOD PHOSPHATE 6 MG in SYRINGE 0 ML IV SCH (08:05)
[2020-08-25] MEDS: cefTRIAXone SODIUM 2,000 MG in DEXTROSE 5% 50 ML IV SCH (08:05)
[2020-08-25] MEDS: METOPROLOL SUCC 25MG EXT REL TAB PO SCH (08:06)
[2020-08-25] MEDS: FAMOTIDINE 20 MG TAB PO SCH ×2 (08:06→20:36)
--- NOTE | 2020-08-25 08:06 | XRay Report ---
XR chest 1V portable HISTORY: SEPSIS COMPARISON: Chest 01/06/2016. FINDINGS: Cardiac silhouette is mildly enlarged. No new focal lung consolidations to suggest pneumoni a. No evidence for pulmonary edema. No pleural effusions. No pneumothorax. IMPRESSION: Mild cardiomegaly. ACT 112: Negative or not required by law. Electronically signed by: Carlos A Martinez M.D. 08/25/2020 8:05 AM
[2020-08-25] MEDS ORDERED: DEXAMETHASONE SOD INJ 4 MG/ML VIAL IV SCH (09:00)
--- NOTE | 2020-08-25 12:08 | Electrocardiogram Report ---
Test Reason : Blood Pressure : / mmHG Vent. Rate : 101 BPM Atrial Rate : 101 BPM P-R Int : 176 ms QRS Dur : 092 ms QT Int : 356 ms P-R-T Axes : -08 -21 004 degrees QTc Int : 461 ms Poor data quality, interpretation may be adversely affected Sinus tachycardia with Premature atrial complexes Nonspecific T wave abnormality Abnormal ECG When compared with ECG of 18-JUL-2019 03:41, Premature atrial complexes are now Present Nonspecific T wave abnormality now evident in Anterior leads Confirmed by Tommy Gutierres ([id number]) on 08/25/2020 12:07:48 PM Referred By: REFERRED SELF Confirmed By:Tommy Gutierres
--- NOTE | 2020-08-25 16:15 | Pulmonary Consultation ---
Date of Consultation August 25, 2020 Assessment & Plan (1) COVID-19: Chest x-ray 08/25/2020: Good inspiratory effort, bilateral costophrenic and cardiophrenic angles are clean, retrocardiac opacity cannot be ruled out. --Acute hypoxic respiratory failure Likely secondary to Covid pneumonia D-dimer 2750, ferritin 560, LDH 269, CRP 8.26, COVID-19 positive Continue with dexamethasone 6 mg daily for total of 10 days Chest x-ray does not show any significant infiltrate Patient is usually not on oxygen at home. I spoke with the nurse Poppy. Patient is ambulating in the room without o xygen and his saturation is maintained in the low 90s off oxygen. Patient is not complaining of any significant shortness of breath. In a patient with is saturating in the low 90s on room air I would suggest we could hold off on remdesivir for the time being. Continue with dexamethasone. I would be careful giving the patient Lovenox given the patient is pancytopenic with platelets being 51. COVID-19 is a hypercoagulable state but when asked to keep in mind playful as well. Procalcitonin 0.21. Would recommend doxycycline for 5 days given the QTC is 461 Case was discussed with RN as well as Dr. Milligan --History of laryngeal cancer Pulmonary will follow the patient peripherally. Please call with any questions. Please note the above document was generated using voice recognition software. It may contain grammatical, syntax or spelling errors.Any formal questions or concerns about the content, text or information contained within the body of this dictation should be directly addressed to the provider for clarification. 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 His daughter recently tested positive for Covid. He was feeling tired for the last couple of days along with diarrhea nausea and vomiting. In the ED patient was 100.7 Fahrenheit with mild hypoxia 90% on arrival History obtained from previous chart Allergies Allergy/AdvReac Type Severity Reaction Status Date / Time No Known Drug Allergies Allergy Unknown Verified 08/25/20 03:28 Home Medications Medication Instructions Recorded Confirmed Type famotidine 20 mg tablet 20 mg PO BID #60 tab 10/09/19 08/25/20 Rx metoprolol succinate 25 mg 25 mg PO DAILY #90 tab 03/17/20 08/25/20 Rx tablet,extended release 24 hr dexamethasone 0.1 % eye 1 applic OT BID PRN #5 ml 04/02/20 08/25/20 Rx drops,suspension mometasone 0.1 % topical cream 1 applic TOP DAILY PRN #15 gm 05/18/20 08/25/20 Rx Patient History Medical History (Updated 08/25/20 @ 05:47 by Agata Tom DO) GERD (gastroesophageal reflux disease) History of gastrostomy tube placement 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, right piriform sinus,SCC, p16 negative, 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, stage IV (thyroid cartilage invasion) Status post completion of combined radiation and chemotherapy Radiation completed 12/31/2015 received 6996 cGy" On 01/07/16 10:48 Sandra Mckeon wrote "DIAGNOSIS: Hypopharynx, right piriform sinus,SCC, p16 negative, 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, stage IV (thyroid cartilage invasion) Status post completion of combined radiation and chemotherapy Radiation completed 12/31/2015 received 6996 cGy" On 10/27/15 15:29 Elmer Hebert wrote "DIAGNOSIS: Hypopharynx, right piriform sinus,SCC, p16 negative, 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, 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 Surgical History H/O knee surgery History of cataract surgery History of colonoscopy History of left knee surgery History of sinus surgery Biopsy History of skin surgery History of tonsillectomy Status post Mohs surgery Family History Father Cancer Social History Smoking Status: Former smoker Second Hand Exposure: No; Hx Alcohol Use: No Hx Substance Use: No Preferred Language: Korean 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 Please refer to the hospitalist exam for complete details. Results & Data Results & Data ([facility]) Vital Signs (Past 12 Hours) Vital Signs Temp Pulse Pulse Resp BP BP Pulse Ox 08/25/20 16:01 37.0 C 77 20 154/74 H 93 08/25/20 15:30 87 08/25/20 12:12 36.7 C 85 18 118/74 93 08/25/20 07:30 20 08/25/20 07:19 37.6 C H 20 120/70 93 08/25/20 05:45 108 H 19 119/58 L 94 08/25/20 05:30 108 H 19 114/63 96 08/25/20 05:15 106 H 23 129/67 95 08/25/20 05:00 107 H 25 H 141/72 H 95 08/25/20 04:45 109 H 23 137/69 95 08/25/20 04:30 102 H 22 133/71 97 08/25/20 04:15 106 H 24 148/74 H 99 08/25/20 04:12 109 H 19 143/67 H 97 08/25/20 03:33 08/25/20 03:33 PG Care Time/CCT Total # of Minutes Spent Total Time Spent with Patient: Total time spent is greater than 50% in coordination of care (as documented) at patient's floor/unit and/or counseling patient: Coding Level of Care Code 78777 Initial Inpt Care Lvl 2 Diagnoses COVID-19 U07.1
--- NOTE | 2020-08-25 16:19 | Hospitalist Progress Note ---
Date of Service August 25, 2020 Assessment & Plan (1) COVID-19: Patient with Covid-19. tachycardic, mildly hypoxic to 90% on room air on arrival, now improved Leukopenic with lymphopenia, thrombocytopenia as well. -Maintain precautions, airborne and contact, cxr is not with significant changes elevated Ddimer, -normal Procalcitonin -Dexamethasone 6mg IV daily -Convalescent plasma - patient consented in room verbally -Continue Pepcid -Zinc - does not qualify for remdesivir -Lovenox 30 BID (2) Hypertension: Chronic. Stable -Continue Metoprolol (3) Pneumonia: ?LLL PNA - coarse breath sounds in left base focal -Ceftriaxone/Azithromycin transition to just p.o. azithromycin at time of discharge -Follow cultures (4) GERD (gastroesophageal reflux disease): Chronic. Stable -Continue Pepcid F/E/N - NSS x 500mL given in ER, encourage PO intake, electrolytes WNL, Regular diet as tolerated Ppx - Lovenox BID Code - Full per discussion with patient Dispo - Admit to medical with telemetry I spoke to family today they are unable to get the patient on 08/25 due to transportation issues. They will likely pick patient up in the morning on 08/26 at 9 AM Admission and Anticipated Discharge Date Admission Date: August 25, 2020 Subjective pt feels improved did not have any diarrhea and generally feels better, pt states he does not feel short of breath over his baseline, he has a history of heavy smoking and also some throat surgery in the past that has left him with some baseline breathless ness or have any chest pain. no cough Review of Systems Review of Systems: Mild distress and fatigue no headache, blurry or double vision no speech or swallowing issues no chest pain, pressure or palpitations mild shortness of breath, baseline non productive cough or wheezes no abdominal pain, nausea or vomiting, no additional diarrhea no dysuria, hematuria or frequency no focal joint pain or swelling no back pain, CVA tenderness or radicular pain no bruising, bleeding or rashes no focal signs of weakness or numbness or altered sensation no complaints of anxiety or depression. Results & Data Results & Data ([facility]) Vital Signs (Past 12 Hours) Vital Signs Temp Pulse Pulse Resp BP BP Pulse Ox 08/25/20 16:01 98.6 F 77 20 154/74 H 93 08/25/20 15:30 87 08/25/20 12:12 98.1 F 85 18 118/74 93 08/25/20 07:30 20 08/25/20 07:19 99.7 F H 20 120/70 93 08/25/20 05:45 108 H 19 119/58 L 94 08/25/20 05:30 108 H 19 114/63 96 08/25/20 05:15 106 H 23 129/67 95 08/25/20 05:00 107 H 25 H 141/72 H 95 08/25/20 04:45 109 H 23 137/69 95 08/25/20 04:30 102 H 22 133/71 97 08/25/20 04:15 106 H 24 148/74 H 99 08/25/20 04:12 109 H 19 143/67 H 97 PG Care Time/CCT Total # of Minutes Spent Total Time Spent with Patient: Total time spent is greater than 50% in coordination of care (as documented) at patient's floor/unit and/or counseling patient: Coding Level of Care Code 82010 Subseq Hosp Care Lvl 3 Diagnoses COVID-19 U07.1 Hypertension I10 Hypertension type: unspecified Pneumonia J18.9 GERD (gastroesophageal reflux disease) K21.9 Esophagitis presence: esophagitis presence not specified (1) Hypertension Hypertension type: unspecified Qualified Code(s): I10 - Essential (primary) hypertension (2) GERD (gastroesophageal reflux disease) Esophagitis presence: esophagitis presence not specified Qualified Code(s): K21.9 - Gastro-esophageal reflux disease without esophagitis
[2020-08-26] MEDS: DEXAMETHASONE SOD PHOSPHATE 6 MG in SYRINGE 0 ML IV SCH (07:46)
[2020-08-26] MEDS: ENOXAPARIN INJ 30 MG/0.3 ML SYR SQ SCH (07:46)
[2020-08-26] MEDS: ZINC SULFATE 220 MG CAPSULE PO SCH (07:47)
[2020-08-26] MEDS: FAMOTIDINE 20 MG TAB PO SCH (07:48)
[2020-08-26] MEDS: METOPROLOL SUCC 25MG EXT REL TAB PO SCH (07:48)
[2020-08-26] MEDS: cefTRIAXone SODIUM 2,000 MG in DEXTROSE 5% 50 ML IV SCH (07:49)
[2020-08-26 07:57] VITALS: BP 160/82; TEMP 97.9; O2SAT 98
[2020-08-26] MEDS ORDERED: AZITHROMYCIN 250 MG in DEXTROSE 5% 250 ML IV SCH (09:00)
[2020-08-26 11:56] VITALS: PULSE 70
--- NOTE | 2020-08-26 19:04 | Discharge Summary ---
Date of Service August 26, 2020 Admission HPI Per Admitting Provider 85yo C male presenting with Covid-19 PNA. Patient had been in contact with his daughter who recently tested positive for Covid. He was feeling fatigued for the last few days then developed diarrhea, nausea, vomiting and weakness which prompted him to seek medical care. Patient febrile en route to 100.7, mildly hypoxic at 90% on room air on arrival. Currenlty with no complaints. States he feels overall pretty well. Denies CP, palpitations. Last episode of diarrhea prior to arrival. No loss of taste or smell. ER Course: Zosyn, Tylenol, Solumedrol, NSS, Zofran Principal Diagnosis COVID-19 gastroenteritis resolved Discharge Exam The patient appeared somewhat chronically ill he is a history of COPD also Vital signs as documented. Lungs are poor air movement but no focal loss no wheezes or rales Cardiac exam, Rhythm is regular.. No murmurs, rubs or gallops. Abdominal exam reveals normal bowel sounds, soft non tender, no masses Extremities are nonedematous and both pedal pulses are normal. Neurologic exam is alert and oriented, no focal loss of strength or sensation Skin is without bruises or rashes Psychologically is without concerns for anxiety or depression. Discharge Data Allergies Allergy/AdvReac Type Severity Reaction Status Date / Time No Known Drug Allergies Allergy Unknown Verified 08/25/20 03:28 Consultations 08/25/20 04:36 ED Decision to Admit Stat 08/25/20 06:40 Consult Pulmonology Routine Hospital Course (1) COVID-19: Patient with Covid-19. tachycardic, mildly hypoxic to 90% on room air on arrival, now improved Leukopenic with lymphopenia, thrombocytopenia as well. -Maintain precautions, airborne and contact, cxr is not with significant changes elevated Ddimer, -normal Procalcitonin -Dexamethasone 6mg complete 10-day course -Convalescent plasma - patient consented in room verbally administered -Continue Pepcid -Zinc - did not qualify for remdesivir this was reviewed by pulmonary (2) Hypertension: Chronic. Stable -Continue Metoprolol (3) Pneumonia: (4) GERD (gastroesophageal reflux disease): Chronic. Stable -Continue Pepcid Code - Full per discussion with patient Total Time Total Time Spent Total Time Spent (In Minutes): It required greater than 30 minutes to prepare this patient for discharge Discharge Plan Discharge Items Patient Disposition: Home - Self-Care Reason For Visit: COVID-19,DIARRHEA,HYPOXIA Discharge Diagnosis: covid 19 infection diarrhea Activity: Resume your previous activity Non-emergency contact: Primary Care Provider Call non-emergency contact if: you have any medication questions and your symptoms worsen Follow-up/Referrals: Harry Rodriguez III, MD [Primary Care Provider] - 08/30/20 11:00 am (You have a follow up appt with Aleida, this appt is via the phone. The office will call you on Sunday at 11am. ) Diet: Regular Addtl Attending Provider Instructions: Home Isolation COVID-19 Instructions The following information about Home Isolation is from the CDC Website: https://www.cdc.gov/coronavirus/2019-ncov/hcp/jknsnqmn-uscnuwe-ztenxr.html Stay home except to get medical care People who are mildly ill with COVID-19 are able to isolate at home during their illness. You should restrict activities outside your home, except for getting medical care. Do not go to work, school, or public areas. Avoid using public transportation, ride-sharing, or taxis. Separate yourself from other people and animals in your home People: As much as possible, you should stay in a specific room and away from other people in your home. Also, you should use a separate bathroom, if available. Animals: You should restrict contact with pets and other animals while you are sick with COVID-19, just like you would around other people. Although there have not been reports of pets or other animals becoming sick with COVID-19, it is still recommended that people sick with COVID-19 limit contact with animals until more information is known about the virus. When possible, have another member of your household care for your animals while you are sick. If you are sick with COVID-19, avoid contact with your pet, including petting, snuggling, being kissed or licked, and sharing food. If you must care for your pet or be around animals while you are sick, wash your hands before and after you interact with pets and wear a face mask. Call ahead before visiting your doctor If you have a medical appointment, call the healthcare provider and tell them that you have or may have COVID-19. This will help the healthcare providers office take steps to keep other people from getting infected or exposed. Wear a face mask You should wear a face mask when you are around other people (e.g., sharing a room or vehicle) or pets and before you enter a healthcare providers office. If you are not able to wear a face mask (for example, because it causes trouble breathing), then people who live with you should not stay in the same room with you, or they should wear a face mask if they enter your room. Cover your coughs and sneezes Cover your mouth and nose with a tissue when you cough or sneeze. Throw used tissues in a lined trash can. Immediately wash your hands with soap and water for at least 20 seconds or, if soap and water are not available, clean your hands with an alcohol-based hand elect equip maint eng that contains at least 60% alcohol. Clean your hands often Wash your hands often with soap and water for at least 20 seconds, especially after blowing your nose, coughing, or sneezing; going to the bathroom; and before eating or preparing food. If soap and water are not readily available, use an alcohol-based hand elect equip maint eng with at least 60% alcohol, covering all surfaces of your hands and rubbing them together until they feel dry. Soap and water are the best option if hands are visibly dirty. Avoid touching your eyes, nose, and mouth with unwashed hands. Avoid sharing personal household items You should not share dishes, drinking glasses, cups, eating utensils, towels, or bedding with other people or pets in your home. After using these items, they should be washed thoroughly with soap and water. Clean all high-touch surfaces everyday High touch surfaces include counters, tabletops, doorknobs, bathroom fixtures, toilets, phones, keyboards, tablets, and bedside tables. Also, clean any surfaces that may have blood, stool, or body fluids on them. Use a household cleaning spray or wipe, according to the label instructions. Labels contain instructions for safe and effective use of the cleaning product including precautions you should take when applying the product, such as wearing gloves and making sure you have good ventilation during use of the product. Monitor your symptoms Seek prompt medical attention if your illness is worsening (e.g., difficulty breathing).Beforeseeking care, call your healthcare provider and tell them that you have, or are being evaluated for, COVID-19. Put on a face mask before you enter the facility. These steps will help the healthcare providers office to keep other people in the office or waiting room from getting infected or exposed. Ask your healthcare provider to call the local or state health department. Persons who are placed under active monitoring or facilitated self- monitoring should follow instructions provided by their local health department or occupational health professionals, as appropriate. When working with your local health department check their available hours. If you have a medical emergency and need to call 911, notify the dispatch personnel that you have, or are being evaluated for COVID-19. If possible, put on a face mask before emergency medical services arrive. Discontinuing home isolation Patients with confirmed COVID-19 should remain under home isolation precautions until the risk of secondary transmission to others is thought to be low. The decision to discontinue home isolation precautions should be made on a [id number] basis, in consultation with healthcare providers and [facility] and [facility] health departments. Pending Studies at Discharge: No Stand-Alone Forms: [facility], Smoking Cessation Medications and DC Order Prescriptions: New dexamethasone [Decadron] 6 mg tablet 6 mg PO DAILY Qty: 8 RF: 0 Continued famotidine 20 mg tablet 20 mg PO BID Qty: 60 RF: 11 metoprolol succinate 25 mg tablet extended release 24 hr 25 mg PO DAILY Qty: 90 RF: 3 dexamethasone 0.1 % drops,suspension 1 applic OT BID PRN (Reason: itching) Qty: 5 RF: 0 mometasone 0.1 % cream 1 applic TOP DAILY PRN (Reason: allergic reaction) Qty: 15 RF: 0 Discharge Orders: Discharge Order (Routine); Ordered 08/26/20 Ordered By: Vickey Milligan Admission Data Admit Date/Time: 08/25/20 05:27 Attending Provider: Vickey Milligan Admit Provider: Agata Tom Primary Care Provider: Harry Rodriguez III Other Providers: Agata Tom ; Estela Colmenares Other Interventions: Discharge Summary Assessment (RN) Last Done: 08/26/20 11:54 Coding Level of Care Code D/C Day Management >30 mins Diagnoses COVID-19 U07.1 Hypertension I10 Hypertension type: unspecified Pneumonia J18.9 GERD (gastroesophageal reflux disease) K21.9 Esophagitis presence: esophagitis presence not specified
== END 2020-08-26 12:59 | disposition home or self-care (01) ==
LOC: ED 02:41 → INTOOBSV 05:27 → 2N 05:27 → SUATTDRO 05:27 → 2N 05:57

== ENCOUNTER 2020-09-01 06:26 | Inpatient (IN) ==
[2020-09-01] MEDS ORDERED: CEFEPIME 2,000 MG/20 ML VIAL IV STA (07:00)
[2020-09-01] MEDS ORDERED: DEXAMETHASONE SOD INJ 10 MG/ML VIAL IV ONE (07:00)
[2020-09-01] MEDS ORDERED: ALBUTEROL HFA 8 GM INHALER INH ONE (07:00)
[2020-09-01] MEDS ORDERED: ACETAMINOPHEN 1,000 MG/100 ML VIAL IV STA (07:00)
[2020-09-01 07:22] LABS: Partial Thromboplastin Ratio 0.9; Partial Thromboplastin Time 25.1 Seconds (21.0-31.0); Prothrombin Time 10.7 Seconds (9.0-12.0)
[2020-09-01 07:23] LABS: Albumin Level 3.5 gm/dl (3.4-5.0); BUN Creatinine Ratio 14.1 (10-20); Calcium 8.7 mg/dl (8.5-10.1); Creatinine Clr Calc Pharmacy 65.4 ml/min; Est GFR (African American) 82.3; Hematocrit (blood only) 41.4 % (42-52); Hemoglobin 13.6 g/dL (14.0-18.0); Magnesium 1.8 mg/dl (1.8-2.4); Mean Corpuscular Hemoglobin 28.3 pg (25-34); Mean Corpuscular Hgb Conc 32.9 g/dL (32-36); Mean Corpuscular Volume 86.3 fL (80-100); Mean Platelet Volume 12.1 fL (7.4-10.4); Platelet Count 78 K/uL (130-400); Potassium 3.2 mmol/L (3.5-5.1); RDW Coefficient of Variation 13.2 % (11.5-14.5); RDW Standard Deviation 41.9 fL (36.4-46.3)
[2020-09-01] MEDS ORDERED: POTASSIUM CHLORIDE CRTAB 20 MEQ TABCR PO STA (07:25)
[2020-09-01] MEDS ORDERED: ONDANSETRON INJ 2 MG/ML 2 ML VIAL IV STA (07:25)
[2020-09-01 07:28] LABS: Albumin Globulin Ratio 0.9 (0.9-2); Bilirubin,Total 0.9 mg/dl (0.2-1); C Reactive Protein 3.06 mg/dl (0-0.29); Ferritin 793.3 ng/ml (8-388); Globulin 3.9 gm/dl (2.5-4.0); Total Protein 7.4 gm/dl (6.4-8.2); Troponin I 0.036 ng/ml (0-0.045)
--- NOTE | 2020-09-01 07:53 | XRay Report ---
SINGLE VIEW CHEST CLINICAL HISTORY: Sepsis. FINDINGS: An AP, portable, upright chest radiograph is compared to study dated 08/25/2020. The heart is mildly enlarged. The pulmonary vasculature is noncongested. Bilateral hazy interstitial airspace o pacities 1 osteoporosis lung bases. No large pleural effusion or pneumothorax is seen. The skeletal s tructures are osteopenic. The bony thorax is grossly intact. IMPRESSION: Bilateral hazy interstitial airspace opacities are now seen at both lung bases and favor an infectious/inflammatory pneumonitis. Clinical correlation will be required. ACT 112: Negative or not required by law. Electronically signed by: Gil Zaidi M.D. 09/01/2020 7:51 AM
--- NOTE | 2020-09-01 07:53 | History & Physical Report ---
Date of Service September 01, 2020 Assessment & Plan (1) Acute respiratory failure with hypoxia: Patient presents to the ER with increasing hypoxia and tachypnea. Patient does have a history of tobacco use and likely COPD. 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 He recently was positive for Covid. During his last hospital stay which she was discharged on the he went home on dexamethasone and did receive convalescent plasma while he was here with did not receive remdesivir. In the ER he appears ill. Consideration of giving remdesivir as he still within the 1 week time course of diagnosis as he was diagnosed on 25 August at best to be treated for COPD exacerbation CXR shows hazy bilateral basilar infiltrates, will start remdesivir (2) COVID-19: Patient was positive on 25 August 2020 (3) Hypertension: Patient continue on metoprolol succinate 25 mg a day (4) GERD (gastroesophageal reflux disease): Patient on Pepcid 20 twice daily (5) History of SCC (squamous cell carcinoma) of skin: (6) DVT prophylaxis: DVT prophylaxis will be ordered History of Present Illness Primary Care Provider: Harry Rodriguez MD 85-year-old male with a history of COPD who was discharged on 26 August During that hospital stay after being admitted with Covid having gastroenteritis. the patient did not receive remdesivir but did receive convalescent plasma and was discharged to complete a 10-day course of dexamethasone. Patient returns with increased feelings of illness. tachycardic and mildly hypoxic on presentation. He remains with bone marrow suppression with leukopenia and thrombocytopenia as well as when he was discharged. He is mildly hypokalemic. His chest x-ray is not showing significant Covid changes. He is requiring increasing oxygen supplementation at this time. Allergies Allergy/AdvReac Type Severity Reaction Status Date / Time No Known Drug Allergies Allergy Unknown Verified 09/01/20 07:55 Home Medications Medication Instructions Recorded Confirmed Type famotidine 20 mg tablet 20 mg PO BID #60 tab 10/09/19 09/01/20 Rx dexamethasone 0.1 % eye 1 applic OT BID PRN #5 ml 04/02/20 09/01/20 Rx drops,suspension mometasone 0.1 % topical cream 1 applic TOP DAILY PRN #15 gm 05/18/20 09/01/20 Rx dexamethasone [Decadron] 6 mg PO DAILY #8 tab 08/26/20 09/01/20 Rx metoprolol succinate 0 mg PO DAILY 09/01/20 09/01/20 History Past Med/Surg History Medical History (Updated 09/01/20 @ 14:06 by Justyn Iraheta MD) GERD (gastroesophageal reflux disease) History of gastrostomy tube placement 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, right piriform sinus,SCC, p16 negative, 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, stage IV (thyroid cartilage invasion) Status post completion of combined radiation and chemotherapy Radiation completed 12/31/2015 received 6996 cGy" On 01/07/16 10:48 Sandra Mckeon wrote "DIAGNOSIS: Hypopharynx, right piriform sinus,SCC, p16 negative, 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, stage IV (thyroid cartilage invasion) Status post completion of combined radiation and chemotherapy Radiation completed 12/31/2015 received 6996 cGy" On 10/27/15 15:29 Elmer Hebert wrote "DIAGNOSIS: Hypopharynx, right piriform sinus,SCC, p16 negative, 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, 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 Surgical History H/O knee surgery History of cataract surgery History of colonoscopy History of left knee surgery History of sinus surgery Biopsy History of skin surgery History of tonsillectomy Status post Mohs surgery Family History Father Cancer Social History Smoking Status: Former smoker Tobacco Type: Cigarettes Second Hand Exposure: No; Do You Dip or Chew Tobacco: No; Tobacco Cessation Education Requested by Patient: No Hx Alcohol Use: No Hx Substance Use: No Preferred Language: [place] Communication Ability: Effective Dental Hygiene Administrative Assistant Required: No Beliefs That Will Affect Care: None Current Living Situation: Family Current Living Situation Comment: lives with son and daughter Other Information That Helps Us Care for You: No Feels Safe at Home: Yes Assistive Devices: Oxygen - Continuous Review of Systems Review of Systems: Moderate distress and fatigue no headache, blurry or double vision no speech or swallowing issues no chest pain, pressure or palpitations dyspnea and cough, non productive no abdominal pain, nausea or vomiting, claims persistent diarrhea no dysuria, hematuria or frequency no focal joint pain or swelling no back pain, CVA tenderness or radicular pain no bruising, bleeding or rashes no focal signs of weakness or numbness or altered sensation no complaints of anxiety or depression. Physical Exam Physical Exam: The patient appeared sweaty and ill appearing Vital signs as documented. Head exam is normocephalic atraumatic no scleral icterus Neck is without JVD, thyromegaly, or carotid bruits. Lungs bibasilar coarse rales worse at bases, tachypneic Cardiac exam, Rhythm is regular.. No murmurs, rubs or gallops. Abdominal exam reveals normal bowel sounds, soft non tender, no masses Extremities are nonedematous and both pedal pulses are present Neurologic exam is alert and oriented, no focal loss of strength or sensation Skin is with clammey and cold Psychologically is without concerns for anxiety or depression. Results & Data Results & Data ([facility]) Vital Signs (Past 12 Hours) Vital Signs Temp Pulse Resp BP Pulse Ox 09/01/20 07:30 28 H 97 09/01/20 07:01 100 H 147/89 H 94 09/01/20 07:00 132 H 92 09/01/20 06:56 93 09/01/20 06:50 98 H 92 09/01/20 06:44 98.8 F 117 H 36 H 139/91 88 L 09/01/20 06:40 97 H 91 09/01/20 06:36 93 H 93 09/01/20 06:32 97 H 139/91 95 PG Care Time/CCT Total # of Minutes Spent Total Time Spent with Patient: Total time spent is greater than 50% in coordination of care (as documented) at patient's floor/unit and/or counseling patient: Coding Level of Care Code 64580 Initial Inpt Care Lvl 3 Diagnoses Acute respiratory failure with hypoxia J96.01 COVID-19 U07.1 Hypertension I10 Hypertension type: unspecified GERD (gastroesophageal reflux disease) K21.9 Esophagitis presence: esophagitis presence not specified History of SCC (squamous cell carcinoma) of skin Z85.828 DVT prophylaxis Z29.9 (1) GERD (gastroesophageal reflux disease) Esophagitis presence: esophagitis presence not specified Qualified Code(s): K21.9 - Gastro-esophageal reflux disease without esophagitis (2) Hypertension Hypertension type: unspecified Qualified Code(s): I10 - Essential (primary) hypertension
[2020-09-01 08:02] LABS: Influenza A virus by PCR Negative (Neg); Influenza B virus by PCR Negative (Neg); RSV by PCR Negative (Neg)
[2020-09-01 08:10] LABS: Giant Platelets 1+
[2020-09-01 08:16] LABS: SARS CoV2 RNA(COVID-19) InHosp POSITIVE (Negative)
[2020-09-01 08:17] LABS: ALC (manual) 0.54 K/uL (1.2-3.4); Blast # (manual) 0.04 K/uL (0-0); Blast Cells % (manual) 1.8 %; Lymphocytes # (manual) 0.54 K/uL (1.2-3.4); Lymphocytes % (manual) 25.7 %; Metamyelocytes # (manual) 0.04 K/uL (0-0); Metamyelocytes % (manual) 1.8 %; Monocytes # (manual) 0.32 K/uL (0.11-0.59); Myelocytes # (manual) 0.17 K/uL (0-0); Neutrophils % (manual) 47.7 %
[2020-09-01] MEDS ORDERED: ALUMINUM/MAGNESIUM SUSP 30 ML UDC PO PRN (08:36)
--- NOTE | 2020-09-01 08:44 | Emergency Department Note ---
History of Present Illness General Chief complaint: Respiratory Problems Stated complaint: BREATHING DIFFICULTY Time Seen by Provider: 09/01/20 06:32 Source: patient, EMS, RN notes reviewed and old records reviewed Mode of arrival: EMS Limitations: physical limitation ([place]) History of Present Illness Provider complaint: Shortness of Breath Onset (ago): hour(s) 2 Current Pain Intensity: 0 Relieved By: + rest Exacerbated By: + movement Associated symptoms: + fever/chills, + nausea/vomiting and + shortness of breath; no chest pain and no diaphoresis Treatments prior to arrival: other (oxygen) This is an 85-year-old male who was recently admitted to the hospital for Covid pneumonia who presents the emergency department complaining shortness of breath. Patient woke up this morning and felt he could not catch his breath. EMS was summoned who found the patient to be hypoxic. He was placed on oxygen. Upon arrival to the emergency department patient is running fevers. He has not taken anything for the fever. He denies any chest pain or abdominal pain. Home Medications Medication Instructions Recorded Confirmed Type famotidine 20 mg tablet 20 mg PO BID #60 tab 10/09/19 09/01/20 Rx dexamethasone 0.1 % eye 1 applic OT BID PRN #5 ml 04/02/20 09/01/20 Rx drops,suspension mometasone 0.1 % topical cream 1 applic TOP DAILY PRN #15 gm 05/18/20 09/01/20 Rx dexamethasone [Decadron] 6 mg PO DAILY #8 tab 08/26/20 09/01/20 Rx metoprolol succinate 0 mg PO DAILY 09/01/20 09/01/20 History Allergies Allergy/AdvReac Type Severity Reaction Status Date / Time No Known Drug Allergies Allergy Unknown Verified 09/01/20 07:55 Past Med/Surg History Medical History (Updated 09/01/20 @ 14:06 by Justyn Iraheta MD) GERD (gastroesophageal reflux disease) History of gastrostomy tube placement 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, right piriform sinus,SCC, p16 negative, 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, stage IV (thyroid cartilage invasion) Status post completion of combined radiation and chemotherapy Radiation completed 12/31/2015 received 6996 cGy" On 01/07/16 10:48 Sandra Mckeon wrote "DIAGNOSIS: Hypopharynx, right piriform sinus,SCC, p16 negative, 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, stage IV (thyroid cartilage invasion) Status post completion of combined radiation and chemotherapy Radiation completed 12/31/2015 received 6996 cGy" On 10/27/15 15:29 Elmer Hebert wrote "DIAGNOSIS: Hypopharynx, right piriform sinus,SCC, p16 negative, 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, 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 Surgical History H/O knee surgery History of cataract surgery History of colonoscopy History of left knee surgery History of sinus surgery Biopsy History of skin surgery History of tonsillectomy Status post Mohs surgery Family History Father Cancer Social History Smoking Status: Former smoker Tobacco Type: Cigarettes Second Hand Exposure: No; Hx Alcohol Use: No Hx Substance Use: No Preferred Language: Welsh Communication Ability: Effective Machine Grinder Required: No Beliefs That Will Affect Care: None Current Living Situation: Family Current Living Situation Comment: lives with son and daughter Feels Safe at Home: Yes Assistive Devices: Oxygen - Continuous Physical Exam Vital Signs Vital Signs - 24 hr 09/01/20 06:32 09/01/20 06:36 09/01/20 06:40 Temperature Temperature Source Pulse Rate 97 H 93 H 97 H Pulse Rate from SpO2 Sensor 89 92 H 97 H Pulse Rhythm Respiratory Rate Respiratory Effort / Characteristics Respiratory Depth Respiratory Pattern Blood Pressure 139/91 Blood Pressure Mean 94 Pulse Oximetry 95 93 91 Oxygen Delivery Method Nasal Cannula Nasal Cannula Nasal Cannula Oxygen Flow Rate 4 4 4 Sepsis Recent Fever Within 48 Hours Sepsis New/Unexplained Change in Mental Status Sepsis Action Taken by Nursing Oxygen Flow Rate - Titration Pulse Oximetry Post Tiitration 09/01/20 06:44 09/01/20 06:50 09/01/20 06:56 Temperature 37.1 C Temperature Source Oral Pulse Rate 117 H 98 H Pulse Rate from SpO2 Sensor 91 H Pulse Rhythm Regular Respiratory Rate 36 H Respiratory Effort / Characteristics Labored Labored Respiratory Depth Shallow Respiratory Pattern Grunting Blood Pressure 139/91 Blood Pressure Mean 107 Pulse Oximetry 88 L 92 93 Oxygen Delivery Method Room Air Nasal Cannula Nasal Cannula Oxygen Flow Rate 4 4 Sepsis Recent Fever Within 48 Hours Yes Sepsis New/Unexplained Change in Mental Status N/A Sepsis Action Taken by Nursing Physician Notified Oxygen Flow Rate - Titration 4 Pulse Oximetry Post Tiitration 93 09/01/20 07:00 09/01/20 07:01 09/01/20 07:10 Temperature Temperature Source Pulse Rate 132 H 100 H 93 H Pulse Rate from SpO2 Sensor 86 95 H 90 Pulse Rhythm Respiratory Rate 26 H Respiratory Effort / Characteristics Respiratory Depth Respiratory Pattern Blood Pressure 147/89 H Blood Pressure Mean 110 Pulse Oximetry 92 94 94 Oxygen Delivery Method Nasal Cannula Nasal Cannula Oxygen Flow Rate 4 4 Sepsis Recent Fever Within 48 Hours Sepsis New/Unexplained Change in Mental Status Sepsis Action Taken by Nursing Oxygen Flow Rate - Titration Pulse Oximetry Post Tiitration 09/01/20 07:20 09/01/20 07:30 09/01/20 07:40 Temperature Temperature Source Pulse Rate 94 H 96 H 105 H Pulse Rate from SpO2 Sensor 94 H 95 H 99 H Pulse Rhythm Respiratory Rate 16 28 H 14 Respiratory Effort / Characteristics Labored Respiratory Depth Respiratory Pattern Blood Pressure 154/72 H Blood Pressure Mean 91 Pulse Oximetry 92 99 97 Oxygen Delivery Method Nasal Cannula Oxygen Flow Rate 4 Sepsis Recent Fever Within 48 Hours Sepsis New/Unexplained Change in Mental Status Sepsis Action Taken by Nursing Oxygen Flow Rate - Titration Pulse Oximetry Post Tiitration 09/01/20 07:50 Temperature Temperature Source Pulse Rate 115 H Pulse Rate from SpO2 Sensor 116 H Pulse Rhythm Respiratory Rate Respiratory Effort / Characteristics Respiratory Depth Respiratory Pattern Blood Pressure Blood Pressure Mean Pulse Oximetry 95 Oxygen Delivery Method Oxygen Flow Rate Sepsis Recent Fever Within 48 Hours Sepsis New/Unexplained Change in Mental Status Sepsis Action Taken by Nursing Oxygen Flow Rate - Titration Pulse Oximetry Post Tiitration Course Administered Medications Al Hydrox/Mg Hydrox/Simethicone (Aluminum/Magnesium Susp 30 Ml Udc) 30 ml PO Q6H PRN PRN Reason: Dyspepsia Stop: 10/01/20 08:35 Last Admin: 09/01/20 13:03 Dose: 30 ml Documented by: [id number] Discontinued Medications Albuterol (Albuterol Hfa 8 Gm Inhaler) 2 puffs INH NOW ONE Stop: 09/01/20 07:01 Last Admin: 09/01/20 07:16 Dose: 2 puffs Documented by: [id number] Dexamethasone (Dexamethasone Sod Inj 10 Mg/Ml Vial) 6 mg IV NOW ONE Stop: 09/01/20 07:01 Last Admin: 09/01/20 07:16 Dose: 6 mg Documented by: [id number] Acetaminophen (Ofirmev) 1,000 mg in 100 mls @ 400 mls/hr IV NOW STA Stop: 09/01/20 07:14 Last Infusion: 09/01/20 07:40 Dose: 0 mls/hr Documented by: [id number] Admin: 09/01/20 07:16 Dose: 400 mls/hr Documented by: [id number] Cefepime HCl (Maxipime) 2,000 mg in 20 mls @ 5 mls/min IV NOW STA Stop: 09/01/20 07:03 Last Admin: 09/01/20 07:16 Dose: 5 mls/min Documented by: [id number] Ondansetron HCl (Ondansetron Inj 2 Mg/Ml 2 Ml Vial) 4 mg IV NOW STA Stop: 09/01/20 07:26 Last Admin: 09/01/20 07:32 Dose: 4 mg Documented by: [id number] Potassium Chloride (Potassium Chloride Crtab 20 Meq Tabcr) 40 meq PO NOW STA Stop: 09/01/20 07:26 Last Admin: 09/01/20 07:32 Dose: 40 meq Documented by: [id number] Critical Care Time I have personally spent greater than 30 minutes of critical care time in the direct management of this patient. This includes bedside care, interpretation of diagnostic studies, and testing, discussion with consultants, patient, and family members, and other required patient management activities. This 30 minutes is in excess of all separately billable procedures. Medical Decision Making Differential Diagnosis Reactive airway disease, pneumonia, pneumothorax, COPD, CHF, infections, cardiac ischemia, pulmonary embolism, musculoskeletal, gastrointestinal, as well as other pathologies. Medical Records Attestation: I reviewed the patient's medical records. Home Medications Current Medication List: was personally reviewed by me Laboratory Data Attestation: I reviewed the patient's lab results. Result diagrams: 09/01/20 06:38 09/01/20 06:38 Lab Results 09/01/20 09/01/20 09/01/20 Range/Units 06:38 06:38 06:38 WBC (4.8-10.8) K/uL RBC (4.7-6.1) M/uL Hgb (14.0-18.0) g/dL Hct (42-52) % MCV (80-100) fL MCH (25-34) pg MCHC (32-36) g/dL RDW Std Deviation (36.4-46.3) fL RDW Coeff of Mikhail (11.5-14.5) % Plt Count (130-400) K/uL MPV (7.4-10.4) fL Neutrophils % (Manual) % Lymphocytes % (Manual) % Monocytes % (Manual) % Metamyelocytes % (Man) % Myelocytes % (Man) % Blast Cells % (Manual) % Neutrophils # (Manual) (1.4-6.5) K/uL Total Absolute Neuts (1.4-6.5) K/uL Lymphocytes # (Manual) (1.2-3.4) K/uL Total Abs Lymphocytes (1.2-3.4) K/uL Monocytes # (Manual) (0.11-0.59) K/uL Metamyelocytes # (Man) (0-0) K/uL Myelocytes # (Manual) (0-0) K/uL Blast Cells # (Man) (0-0) K/uL Blood Smear Review Giant Platelets ESR 39 H (0-14) mm/hr PT (9.0-12.0) Seconds INR (0.9-1.1) APTT (21.0-31.0) Seconds PTT Ratio Sodium 136 (136-145) mmol/L Potassium 3.2 L (3.5-5.1) mmol/L Chloride 103 (98-107) mmol/L Carbon Dioxide 27 (21-32) mmol/L Anion Gap 6.0 (3-11) BUN 14 (7-18) mg/dl Creatinine 0.98 (0.6-1.4) mg/dl Est Cr Clr Drug Dosing 65.4 ml/min Est GFR ( Amer) 82.3 Est GFR (Non-Af Amer) 71.0 BUN/Creatinine Ratio 14.1 (10-20) Glucose 87 (70-99) mg/dl Lactate (0.4-2.0) mmol/L Calcium 8.7 (8.5-10.1) mg/dl Magnesium 1.8 (1.8-2.4) mg/dl Ferritin 793.3 H (8-388) ng/ml Total Bilirubin 0.9 (0.2-1) mg/dl AST 44 H (15-37) U/L ALT 23 (12-78) U/L Alkaline Phosphatase 61 (45-117) U/L Lactate Dehydrogenase 466 H (87-241) U/L Troponin I 0.036 (0-0.045) ng/ml C-Reactive Protein 3.06 H (0-0.29) mg/dl Total Protein 7.4 (6.4-8.2) gm/dl Albumin 3.5 (3.4-5.0) gm/dl Globulin 3.9 (2.5-4.0) gm/dl Albumin/Globulin Ratio 0.9 (0.9-2) Procalcitonin (0-0.5) ng/ml COVID-19 Eval Order COVID-19 PCR (Negative) Influenza Type A (PCR) (Neg) Influenza Type B (PCR) (Neg) RSV (RT-PCR) (Neg) Blood Type Antibody Screen 09/01/20 09/01/20 09/01/20 Range/Units 06:38 06:38 06:38 WBC 2.10 L (4.8-10.8) K/uL RBC 4.80 (4.7-6.1) M/uL Hgb 13.6 L (14.0-18.0) g/dL Hct 41.4 L (42-52) % MCV 86.3 (80-100) fL MCH 28.3 (25-34) pg MCHC 32.9 (32-36) g/dL RDW Std Deviation 41.9 (36.4-46.3) fL RDW Coeff of Mikhail 13.2 (11.5-14.5) % Plt Count 78 L (130-400) K/uL MPV 12.1 H (7.4-10.4) fL Neutrophils % (Manual) 47.7 % Lymphocytes % (Manual) 25.7 % Monocytes % (Manual) 15.0 % Metamyelocytes % (Man) 1.8 % Myelocytes % (Man) 8.0 % Blast Cells % (Manual) 1.8 % Neutrophils # (Manual) 1.00 L (1.4-6.5) K/uL Total Absolute Neuts 1.00 L (1.4-6.5) K/uL Lymphocytes # (Manual) 0.54 L (1.2-3.4) K/uL Total Abs Lymphocytes 0.54 L (1.2-3.4) K/uL Monocytes # (Manual) 0.32 (0.11-0.59) K/uL Metamyelocytes # (Man) 0.04 H (0-0) K/uL Myelocytes # (Manual) 0.17 H (0-0) K/uL Blast Cells # (Man) 0.04 H (0-0) K/uL Blood Smear Review Giant Platelets 1+ ESR (0-14) mm/hr PT 10.7 (9.0-12.0) Seconds INR 1.0 (0.9-1.1) APTT 25.1 (21.0-31.0) Seconds PTT Ratio 0.9 Sodium (136-145) mmol/L Potassium (3.5-5.1) mmol/L Chloride (98-107) mmol/L Carbon Dioxide (21-32) mmol/L Anion Gap (3-11) BUN (7-18) mg/dl Creatinine (0.6-1.4) mg/dl Est Cr Clr Drug Dosing ml/min Est GFR ( Amer) Est GFR (Non-Af Amer) BUN/Creatinine Ratio (10-20) Glucose (70-99) mg/dl Lactate (0.4-2.0) mmol/L Calcium (8.5-10.1) mg/dl Magnesium (1.8-2.4) mg/dl Ferritin (8-388) ng/ml Total Bilirubin (0.2-1) mg/dl AST (15-37) U/L ALT (12-78) U/L Alkaline Phosphatase (45-117) U/L Lactate Dehydrogenase (87-241) U/L Troponin I (0-0.045) ng/ml C-Reactive Protein (0-0.29) mg/dl Total Protein (6.4-8.2) gm/dl Albumin (3.4-5.0) gm/dl Globulin (2.5-4.0) gm/dl Albumin/Globulin Ratio (0.9-2) Procalcitonin < 0.05 (0-0.5) ng/ml COVID-19 Eval Order COVID-19 PCR (Negative) Influenza Type A (PCR) (Neg) Influenza Type B (PCR) (Neg) RSV (RT-PCR) (Neg) Blood Type Antibody Screen 09/01/20 09/01/20 09/01/20 Range/Units 06:58 06:58 07:27 WBC (4.8-10.8) K/uL RBC (4.7-6.1) M/uL Hgb (14.0-18.0) g/dL Hct (42-52) % MCV (80-100) fL MCH (25-34) pg MCHC (32-36) g/dL RDW Std Deviation (36.4-46.3) fL RDW Coeff of Mikhail (11.5-14.5) % Plt Count (130-400) K/uL MPV (7.4-10.4) fL Neutrophils % (Manual) % Lymphocytes % (Manual) % Monocytes % (Manual) % Metamyelocytes % (Man) % Myelocytes % (Man) % Blast Cells % (Manual) % Neutrophils # (Manual) (1.4-6.5) K/uL Total Absolute Neuts (1.4-6.5) K/uL Lymphocytes # (Manual) (1.2-3.4) K/uL Total Abs Lymphocytes (1.2-3.4) K/uL Monocytes # (Manual) (0.11-0.59) K/uL Metamyelocytes # (Man) (0-0) K/uL Myelocytes # (Manual) (0-0) K/uL Blast Cells # (Man) (0-0) K/uL Blood Smear Review Giant Platelets ESR (0-14) mm/hr PT (9.0-12.0) Seconds INR (0.9-1.1) APTT (21.0-31.0) Seconds PTT Ratio Sodium (136-145) mmol/L Potassium (3.5-5.1) mmol/L Chloride (98-107) mmol/L Carbon Dioxide (21-32) mmol/L Anion Gap (3-11) BUN (7-18) mg/dl Creatinine (0.6-1.4) mg/dl Est Cr Clr Drug Dosing ml/min Est GFR ( Amer) Est GFR (Non-Af Amer) BUN/Creatinine Ratio (10-20) Glucose (70-99) mg/dl Lactate (0.4-2.0) mmol/L Calcium (8.5-10.1) mg/dl Magnesium (1.8-2.4) mg/dl Ferritin (8-388) ng/ml Total Bilirubin (0.2-1) mg/dl AST (15-37) U/L ALT (12-78) U/L Alkaline Phosphatase (45-117) U/L Lactate Dehydrogenase (87-241) U/L Troponin I (0-0.045) ng/ml C-Reactive Protein (0-0.29) mg/dl Total Protein (6.4-8.2) gm/dl Albumin (3.4-5.0) gm/dl Globulin (2.5-4.0) gm/dl Albumin/Globulin Ratio (0.9-2) Procalcitonin (0-0.5) ng/ml COVID-19 Eval Order [facility]FluRsv at [facility] COVID-19 PCR POSITIVE A* (Negative) Influenza Type A (PCR) Negative (Neg) Influenza Type B (PCR) Negative (Neg) RSV (RT-PCR) Negative (Neg) Blood Type B Positive Antibody Screen NEGATIVE 09/01/20 Range/Units 07:27 WBC (4.8-10.8) K/uL RBC (4.7-6.1) M/uL Hgb (14.0-18.0) g/dL Hct (42-52) % MCV (80-100) fL MCH (25-34) pg MCHC (32-36) g/dL RDW Std Deviation (36.4-46.3) fL RDW Coeff of Mikhail (11.5-14.5) % Plt Count (130-400) K/uL MPV (7.4-10.4) fL Neutrophils % (Manual) % Lymphocytes % (Manual) % Monocytes % (Manual) % Metamyelocytes % (Man) % Myelocytes % (Man) % Blast Cells % (Manual) % Neutrophils # (Manual) (1.4-6.5) K/uL Total Absolute Neuts (1.4-6.5) K/uL Lymphocytes # (Manual) (1.2-3.4) K/uL Total Abs Lymphocytes (1.2-3.4) K/uL Monocytes # (Manual) (0.11-0.59) K/uL Metamyelocytes # (Man) (0-0) K/uL Myelocytes # (Manual) (0-0) K/uL Blast Cells # (Man) (0-0) K/uL Blood Smear Review Giant Platelets ESR (0-14) mm/hr PT (9.0-12.0) Seconds INR (0.9-1.1) APTT (21.0-31.0) Seconds PTT Ratio Sodium (136-145) mmol/L Potassium (3.5-5.1) mmol/L Chloride (98-107) mmol/L Carbon Dioxide (21-32) mmol/L Anion Gap (3-11) BUN (7-18) mg/dl Creatinine (0.6-1.4) mg/dl Est Cr Clr Drug Dosing ml/min Est GFR ( Amer) Est GFR (Non-Af Amer) BUN/Creatinine Ratio (10-20) Glucose (70-99) mg/dl Lactate 1.6 (0.4-2.0) mmol/L Calcium (8.5-10.1) mg/dl Magnesium (1.8-2.4) mg/dl Ferritin (8-388) ng/ml Total Bilirubin (0.2-1) mg/dl AST (15-37) U/L ALT (12-78) U/L Alkaline Phosphatase (45-117) U/L Lactate Dehydrogenase (87-241) U/L Troponin I (0-0.045) ng/ml C-Reactive Protein (0-0.29) mg/dl Total Protein (6.4-8.2) gm/dl Albumin (3.4-5.0) gm/dl Globulin (2.5-4.0) gm/dl Albumin/Globulin Ratio (0.9-2) Procalcitonin (0-0.5) ng/ml COVID-19 Eval Order COVID-19 PCR (Negative) Influenza Type A (PCR) (Neg) Influenza Type B (PCR) (Neg) RSV (RT-PCR) (Neg) Blood Type Antibody Screen Imaging Data Radiologist's Impression: [facility], [place] [id number] XRay Report Patient: OLY HOLLY Date: 09/01/20#: [id number]: [id number] [id number]: Date: 1935City Zip: [place] [address]Klz: [id number]: EDSex: MRoom/Bed:Att Phy:Diagnosis: BREATHING DIFFICULTYPri Phy: Harry Rodriguez III, MDService Date: 09/01/20Fa Phy:Interpreting Phy: Gil Zaidi MDAdmit Phy: Ordering Phy: Justyn Iraheta MD cc: ~ SINGLE VIEW CHEST CLINICAL HISTORY: Sepsis. FINDINGS: An AP, portable, upright chest radiograph is compared to study dated 08/25/2020. The heart is mildly enlarged. The pulmonary vasculature is noncongested. Bilateral hazy interstitial airspace opacities 1 osteoporosis lung bases. No large pleural effusion or pneumothorax is seen. The skeletal structures are osteopenic. The bony thorax is grossly intact. IMPRESSION: Bilateral hazy interstitial airspace opacities are now seen at both lung bases and favor an infectious/inflammatory pneumonitis. Clinical correlat ion will be required. ACT 112: Negative or not required by law. Electronically signed by: Gil Zaidi M.D. 09/01/2020 7:51 AM Dictated: 09/01/2049Transcribed: 09/01/20748 ECG Data Attestation: I personally reviewed and interpreted this ECG as follows: Indication: + SOB/dyspnea Rate (beats per minute): 90 Rhythm: + normal sinus ECG Intervals/blocks: + Normal QT-c (450) ECG Newton: + Normal ECG ST segments: no ST depression and no ST elevation ECG Findings: + PACs Comparison ECG Date: from (08/25/2020) Change: no significant change MDM Narrative Patient was seen and evaluated as above in room C10. Review was performed of nursing notes and vital signs. I did review pertinent previous visits and fatoumata boyd history. After obtaining a thorough history and physical examination the above work up was performed. This is an 85-year-old male arrives to the emergency department hypotensive tachycardic and hypoxic. The patient recently had a Covid pneumonia diagnosis. Based on all these findings a sepsis alert was initiated. The patient was pancultured. He was given Decadron he is not hypotensive therefore he was not given 30 mils per kilogram of fluid he was started on broad-spectrum antibioti cs. A lactate was obtained. I did discuss the case with the hospitalist service. The patient was given Decadron here in the emergency department as well as cefepime. While in the department, I personally reevaluated the patient several times and each time the patient was found to be resting comfortably. The patient was educated upon management, educated upon todays findings/results, educated upon importance of follow up from today's visit, educated upon symptoms in which to return, had questions answered prior to discharge, verbalized understanding, and was discharged home in good condition. An order was placed for continuous cardiac monitoring. The monitor shows a rate of 94 with Normal SInus rhythm. The patient was evaluated during the global COVID-19 pandemic, and that diagnosi s was suspected/considered upon their initial presentation. Their evaluation, treatment and testing was consistent with current guidelines for patients who present with complaints or symptoms that may be related to COVID-19. Impression & Plan COVID-19, Acute respiratory failure with hypoxia Discharge Plan Visit Data Chief Complaint: Respiratory Problems Stated Complaint: BREATHING DIFFICULTY ED Provider: Justyn Iraheta Discharge Problem: COVID-19, Acute respiratory failure with hypoxia Patient Disposition: Admitted As Inpatient Discharge Instructions Interventions: ED Discharge Assessment Last Done: 09/01/20 12:10
[2020-09-01] MEDS ORDERED: IPRATROPIUM BROMIDE/ALBUTEROL respimat INH INH SCH (12:38)
[2020-09-01] MEDS ORDERED: POTASSIUM CHLORIDE 10 MEQ / 100ML WTR IV STA (12:38)
[2020-09-01] MEDS ORDERED: POLYETHYLENE (MIRALAX) 17 GM PACK PO PRN (12:38)
[2020-09-01] MEDS ORDERED: LOPERAMIDE HCL 2 MG CAP PO PRN (12:38)
[2020-09-01] MEDS ORDERED: ACETAMINOPHEN 325 MG TAB PO PRN (12:38)
[2020-09-01] MEDS ORDERED: DEXAMETHASONE SOD INJ 10 MG/ML VIAL IV SCH (12:38)
[2020-09-01] MEDS ORDERED: ONDANSETRON INJ 2 MG/ML 2 ML VIAL IV PRN (12:38)
[2020-09-01] MEDS ORDERED: REMDESIVIR 200 MG in SODIUM CHLORIDE 0.9% 210 ML IV ONE (13:30)
[2020-09-01] MEDS: METOPROLOL SUCC 25MG EXT REL TAB PO SCH (14:32)
[2020-09-01] MEDS: FAMOTIDINE 20 MG TAB PO SCH ×2 (14:32→19:55)
[2020-09-01] MEDS: POTASSIUM CHLORIDE CRTAB 20 MEQ TABCR PO SCH ×2 (14:32→19:55)
[2020-09-01] MEDS: ENOXAPARIN INJ 40 MG/0.4 ML SYR SQ SCH ×2 (14:33→21:49)
[2020-09-01] MEDS ORDERED: SODIUM CHLORIDE 0.9% 10ML FLUSH IV SCH (15:30)
[2020-09-01] MEDS: POTASSIUM CHLORIDE / WTR 10 MEQ/100 ML PLCT IV SCH ×3 (16:04→20:46)
[2020-09-01] MEDS: IPRATROPIUM BROMIDE HFA INHALER INH SCH ×3 (19:32→23:09)
[2020-09-01] MEDS: ALBUTEROL HFA 8 GM INHALER INH SCH ×3 (19:32→23:10)
[2020-09-01] MEDS ORDERED: POTASSIUM CHLORIDE 10 MEQ TABCR PO STA (20:41)
--- NOTE | 2020-09-01 21:24 | Electrocardiogram Report ---
Test Reason : Blood Pressure : / mmHG Vent. Rate : 090 BPM Atrial Rate : 090 BPM P-R Int : 184 ms QRS Dur : 084 ms QT Int : 368 ms P-R-T Axes : -07 -26 012 degrees QTc Int : 450 ms Poor data quality, interpretation may be adversely affected Sinus rhythm Nonspecific ST and T wave abnormality Abnormal ECG When compared with ECG of 25-AUG-2020 02:54, No significant change was found Confirmed by Marc Underwood ([id number]) on 09/01/2020 9:24:37 PM Referred By: REFERRED SELF Confirmed By:Marc Underwood
--- NOTE | 2020-09-02 07:43 | Hospitalist Progress Note ---
Date of Service September 02, 2020 Assessment & Plan (1) Acute respiratory failure with hypoxia: Patient presents to the ER with increasing hypoxia and tachypnea. Patient does have a history of tobacco use and likely COPD. 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 He recently was positive for Covid (08/25). During his last hospital stay which she was discharged on the he went home on dexamethasone and did receive convalescent plasma while he was here with did not receive remdesivir. Started remdesivir last dose 09/05 treated for COPD exacerbation CXR shows hazy bilateral basilar infiltrates, complete remdesivir (2) COVID-19: Patient was positive on 25 August 2020 (3) Hypertension: Patient continue on metoprolol succinate 25 mg a day (4) GERD (gastroesophageal reflux disease): Patient on Pepcid 20 twice daily (5) History of SCC (squamous cell carcinoma) of skin: (6) DVT prophylaxis: DVT prophylaxis will be ordered (7) Diarrhea: pt with persistent diarrhea, negative C Diff, will add some topical help for hemorrhoids and employ antidiarrheals Admission and Anticipated Discharge Date Admission Date: September 01, 2020 Subjective this pt is feeling improved but still has some diarrhea, oxygen requirements are down, and taking po well. now started on remdesivir Review of Systems Review of Systems: Moderate distress and fatigue no headache, blurry or double vision no speech or swallowing issues no chest pain, pressure or palpitations dyspnea and cough, non productive no abdominal pain, nausea or vomiting, persistent diarrhea some hemorrhoid irritation no dysuria, hematuria or frequency no focal joint pain or swelling no back pain, CVA tenderness or radicular pain no bruising, bleeding or rashes no focal signs of weakness or numbness or altered sensation no complaints of anxiety or depression. Physical Exam Physical Exam: The patient appeared sweaty and ill appearing Vital signs as documented. Head exam is normocephalic atraumatic no scleral icterus Neck is without JVD, thyromegaly, or carotid bruits. Lungs bibasilar coarse rales improving, tachypneic Cardiac exam, Rhythm is regular.. No murmurs, rubs or gallops. Abdominal exam reveals normal bowel sounds, soft non tender, no masses Extremities are nonedematous and both pedal pulses are present Neurologic exam is alert and oriented, no focal loss of strength or sensation Skin is no longer clammey and cold Psychologically is without concerns for anxiety or depression. Results & Data Results & Data ([facility]) Vital Signs (Past 12 Hours) Vital Signs Temp Pulse Pulse Resp BP BP Pulse Ox 09/02/20 07:14 66 09/02/20 03:25 98.6 F 65 18 136/65 94 09/01/20 23:35 97.9 F 65 18 138/67 94 09/01/20 23:10 65 18 96 09/01/20 19:52 97.9 F 65 20 161/78 H 94 PG Care Time/CCT Total # of Minutes Spent Total Time Spent with Patient: Total time spent is greater than 50% in coordination of care (as documented) at patient's floor/unit and/or counseling patient: Coding Level of Care Code 45024 Subseq Hosp Care Lvl 3 Diagnoses Acute respiratory failure with hypoxia J96.01 COVID-19 U07.1 Hypertension I10 Hypertension type: unspecified GERD (gastroesophageal reflux disease) K21.9 Esophagitis presence: esophagitis presence not specified History of SCC (squamous cell carcinoma) of skin Z85.828 DVT prophylaxis Z29.9 Diarrhea R19.7 (1) GERD (gastroesophageal reflux disease) Esophagitis presence: esophagitis presence not specified Qualified Code(s): K21.9 - Gastro-esophageal reflux disease without esophagitis (2) Hypertension Hypertension type: unspecified Qualified Code(s): I10 - Essential (primary) hypertension
[2020-09-02] MEDS: ENOXAPARIN INJ 40 MG/0.4 ML SYR SQ SCH ×2 (07:58→20:53)
[2020-09-02] MEDS: DEXAMETHASONE SOD PHOSPHATE 6 MG in SYRINGE 0 ML IV SCH (07:58)
[2020-09-02] MEDS: FAMOTIDINE 20 MG TAB PO SCH ×2 (07:59→20:53)
[2020-09-02] MEDS: POTASSIUM CHLORIDE CRTAB 20 MEQ TABCR PO SCH (07:59)
[2020-09-02] MEDS: METOPROLOL SUCC 25MG EXT REL TAB PO SCH (08:00)
[2020-09-02] MEDS: ALBUTEROL HFA 8 GM INHALER INH SCH ×2 (08:09→13:26)
[2020-09-02] MEDS: IPRATROPIUM BROMIDE HFA INHALER INH SCH ×2 (08:10→13:26)
[2020-09-02] MEDS ORDERED: ALBUTEROL HFA 8 GM INHALER INH PRN (09:18)
[2020-09-02] MEDS ORDERED: IPRATROPIUM BROMIDE HFA INHALER INH PRN (09:18)
[2020-09-02] MEDS ORDERED: ZINC OXIDE 16% 45 APPLN, HYDROCORTISONE 1% 45 APPLN, ALUMINUM/MAGNESIUM SUSP 15 ML, BAR... TOP PRN (09:44)
[2020-09-02] MEDS ORDERED: ANUSOL SUPP 1 EA PR PRN (09:44)
[2020-09-02] MEDS: REMDESIVIR 100 MG in SODIUM CHLORIDE 0.9% 230 ML IV SCH (11:49)
[2020-09-02] MEDS: SODIUM CHLORIDE 0.9% 10ML FLUSH IV SCH (13:11)
[2020-09-02] MEDS ORDERED: LOPERAMIDE HCL 2 MG CAP PO STA (13:41)
[2020-09-02 22:04] LABS: Appearance Urine Clear (Clear); Bacteria Urine Automated Negative (Negative); Bilirubin Urine Negative (Negative); Blood Urine Negative (Negative); Color Urine Yellow; Glucose Urine UA Negative (Negative); Ketones Urine Negative (Negative); Leukocyte Esterase Urine Negative (Negative); Nitrite Urine Negative (Negative); Protein Urine Trace (Negative); RBC Urine Automated 0-4 /hpf (0-4); Specific Gravity Urine 1.022 (1.000-1.030); Urobilinogen Urine Negative (Negative)
[2020-09-03 07:22] LABS: Hematocrit (blood only) 37.9 % (42-52); Hemoglobin 12.5 g/dL (14.0-18.0); Mean Corpuscular Hemoglobin 28.3 pg (25-34); Mean Corpuscular Volume 85.9 fL (80-100); Mean Platelet Volume 12.1 fL (7.4-10.4); Platelet Count 72 K/uL (130-400); RDW Coefficient of Variation 13.4 % (11.5-14.5); RDW Standard Deviation 42.4 fL (36.4-46.3); Red Blood Count 4.41 M/uL (4.7-6.1); White Blood Count 2.93 K/uL (4.8-10.8)
[2020-09-03 07:32] LABS: BUN Creatinine Ratio 25.3 (10-20); Calcium 7.9 mg/dl (8.5-10.1); Creatinine Clr Calc Pharmacy 80.3 ml/min; Est GFR (Non-African American) 86.3
[2020-09-03] MEDS: FAMOTIDINE 20 MG TAB PO SCH ×2 (07:58→19:48)
[2020-09-03] MEDS: DEXAMETHASONE SOD PHOSPHATE 6 MG in SYRINGE 0 ML IV SCH (07:58)
[2020-09-03] MEDS: ENOXAPARIN INJ 40 MG/0.4 ML SYR SQ SCH ×2 (08:00→19:48)
[2020-09-03] MEDS: METOPROLOL SUCC 25MG EXT REL TAB PO SCH (08:00)
[2020-09-03] MEDS: REMDESIVIR 100 MG in SODIUM CHLORIDE 0.9% 230 ML IV SCH (13:19)
--- NOTE | 2020-09-03 15:29 | Hospitalist Progress Note ---
Date of Service September 03, 2020 Assessment & Plan (1) Acute respiratory failure with hypoxia: Patient presents to the ER with increasing hypoxia and tachypnea. Patient does have a history of tobacco use and likely COPD. 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 He recently was positive for Covid (08/25). During his last hospital stay which she was discharged on the he went home on dexamethasone and did receive convalescent plasma while he was here with did not receive remdesivir. Started remdesivir last dose 09/05 treated for COPD exacerbation (see below) appears to be improving. anticipate likely need for home O2 - will work on that prior to discharge (2) COPD exacerbation: strongly presumed COPD based on clinical presentation and ~80pk/yr smoking hx, exacerbation due to covid19 -consider PFTs as outpt to confirm -continue inhalers for now- add incruse for LAMA -continue steroids (3) COVID-19: Patient was positive on 25 August 2020 convalescent plasma given during that admission remdesivir day 3/ today dexamethasone appears improving (4) Hypertension: BP reasonable, continue home meds (5) GERD (gastroesophageal reflux disease): no complaints of this today (6) History of SCC (squamous cell carcinoma) of skin: (7) DVT prophylaxis: lovenox (risks/benefits tight due to thromobocytopenia - but no bleeding and plt low but not catastrophically low and stable; acute hx of covid and chronic hx w prior malignancy raise VTE risk - hence favoring continue lovenox and follow closely) (8) Diarrhea: likely relates to covid - does seem to be improving (9) Discharge planning issues: stable for medical anticipate home on discharge highly likely to need home O2 - but too soon to set up discharge planning since needs at least 2 more days of hospital care for full 5 days remdesivir Admission and Anticipated Discharge Date Admission Date: September 01, 2020 Subjective fairly CAHTO, HPI a little limited in that respect nursing notes that he's been doing a good deal better today - up and around in the room more, still needing O2 but little to no respiratory respiratory distress w O2 on. GI distress a little less when i enter the room he is sitting on side of bed - just before entering he's using incentive spirometry, meal tray at bedside. he notes that his breathing is feeling a good deal better and belly isn't perfect but is doing better. "i feel like something broke and i'm turning the corner" called dtr and updated smoking hx reviewed Review of Systems Review of Systems: All systems reviewed & are unremarkable except as noted in HPI & below Physical Exam Physical Exam: gen awake, pleasant nad. heent nc at mmm. lungs markedly diminished throughout but no r/r/w good effort no accessory muscle use no conversational dyspnea no cough during talking. skin no rashes no pallor or icterus. neuro - other than CAHTO no notable focal neuro deficits Results & Data Results & Data ([facility]) Vital Signs (Past 12 Hours) Vital Signs Temp Pulse Pulse Resp BP Pulse Ox 09/03/20 11:47 97.7 F 84 18 111/66 95 09/03/20 08:00 69 09/03/20 07:26 97.7 F 68 18 122/75 95 09/03/20 04:41 98.8 F 66 20 130/73 95 PG Care Time/CCT Total # of Minutes Spent Total Time Spent with Patient: Total time spent is greater than 50% in coordination of care (as documented) at patient's floor/unit and/or counseling patient: Coding Level of Care Code 97523 Subseq Hosp Care Lvl 3 Diagnoses Acute respiratory failure with hypoxia J96.01 COPD exacerbation J44.1 COVID-19 U07.1 Hypertension I10 Hypertension type: unspecified GERD (gastroesophageal reflux disease) K21.9 Esophagitis presence: esophagitis presence not specified History of SCC (squamous cell carcinoma) of skin Z85.828 DVT prophylaxis Z29.9 Diarrhea R19.7 Discharge planning issues Z02.9 (1) Hypertension Hypertension type: unspecified Qualified Code(s): I10 - Essential (primary) hypertension (2) GERD (gastroesophageal reflux disease) Esophagitis presence: esophagitis presence not specified Qualified Code(s): K21.9 - Gastro-esophageal reflux disease without esophagitis
[2020-09-03] MEDS: SODIUM CHLORIDE 0.9% 10ML FLUSH IV SCH (15:41)
[2020-09-03] MEDS ORDERED: ACYCLOVIR 5% OINT 15 GM TUBE EXT PRN (18:44)
[2020-09-04] MEDS: DEXAMETHASONE SOD PHOSPHATE 6 MG in SYRINGE 0 ML IV SCH (08:14)
[2020-09-04] MEDS: FAMOTIDINE 20 MG TAB PO SCH ×2 (08:17→20:45)
[2020-09-04] MEDS: METOPROLOL SUCC 25MG EXT REL TAB PO SCH (08:17)
[2020-09-04] MEDS: ENOXAPARIN INJ 40 MG/0.4 ML SYR SQ SCH ×2 (08:19→20:46)
[2020-09-04] MEDS: UMECLIDINIUM BROMIDE 62.5MCG/BLISTER 7 PUFFS/INHALER INH SCH (08:19)
[2020-09-04] MEDS: REMDESIVIR 100 MG in SODIUM CHLORIDE 0.9% 230 ML IV SCH (13:12)
[2020-09-04] MEDS: SODIUM CHLORIDE 0.9% 10ML FLUSH IV SCH (14:30)
--- NOTE | 2020-09-04 17:52 | Hospitalist Progress Note ---
Date of Service September 04, 2020 Assessment & Plan (1) Acute respiratory failure with hypoxia: Patient presents to the ER with increasing hypoxia and tachypnea. Patient does have a history of tobacco use and likely COPD. 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 He recently was positive for Covid (08/25). During his last hospital stay which she was discharged on the he went home on dexamethasone and did receive convalescent plasma while he was here with did not receive remdesivir. Started remdesivir last dose 09/05 treated for COPD exacerbation (see below) definitely improving. anticipate likely need for home O2 - 2 step done, case management aware (2) COPD exacerbation: strongly presumed COPD based on clinical presentation and ~80pk/yr smoking hx, exacerbation due to covid19 -consider PFTs as outpt to confirm -continue inhalers for now- added incruse for LAMA, consider LABA/inhaled steroid but doing pretty well at this point -continue systemic steroids (3) COVID-19: Patient was positive on 25 August 2020 convalescent plasma given during that admission remdesivir day 4/5 today dexamethasone appears improving (4) Hypertension: BP good, continue home meds (5) GERD (gastroesophageal reflux disease): no complaints of this today (6) History of SCC (squamous cell carcinoma) of skin: (7) DVT prophylaxis: lovenox (risks/benefits tight due to thromobocytopenia - but no bleeding and plt low but not catastrophically low and stable; acute hx of covid and chronic hx w prior malignancy raise VTE risk - hence favoring continue lovenox and follow closely) (8) Diarrhea: likely relates to covid - showing improvement (9) Discharge planning issues: improving anticipate home on discharge, most likely tomorrow after day 5 remdesivir Admission and Anticipated Discharge Date Admission Date: September 01, 2020 Subjective feeling a bit better, stomach doing better - less diarrhea and eating better. still a little unsteady on his feet but when asked directly does not really feel like he's at imminent risk for falling - feels that he would be safe at home. breathing - he really doesn't feel short of breath at all now. breathing basically feels OK. updated dtr, answered all questions to the best of my ability; she showed good understanding of situation Review of Systems Review of Systems: All systems reviewed & are unremarkable except as noted in HPI & below Physical Exam Physical Exam: gen aaox3 pleasant nad heent nc at mmm lungs very quiet throughout but no rrw good effort no accessory muscles skin no rashes no pallor or icterus neuro no focal deficits Results & Data Results & Data ([facility]) Vital Signs (Past 12 Hours) Vital Signs Temp Pulse Pulse Pulse Pulse Pulse Pulse 09/04/20 16:53 97.2 F L 64 09/04/20 15:22 69 09/04/20 12:00 09/04/20 11:18 87 87 85 83 09/04/20 08:01 97.3 F L 83 09/04/20 08:00 70 09/04/20 07:00 70 Resp Resp Resp Resp Resp BP Pulse Ox 09/04/20 16:53 24 126/74 91 09/04/20 15:22 09/04/20 12:00 09/04/20 11:18 20 20 18 18 09/04/20 08:01 22 148/67 H 92 09/04/20 08:00 09/04/20 07:00 Pulse Ox Pulse Ox Pulse Ox Pulse Ox Pulse Ox 09/04/20 16:53 09/04/20 15:22 09/04/20 12:00 95 09/04/20 11:18 92 86 L 96 93 09/04/20 08:01 09/04/20 08:00 09/04/20 07:00 PG Care Time/CCT Total # of Minutes Spent Total Time Spent with Patient: Total time spent is greater than 50% in coordination of care (as documented) at patient's floor/unit and/or counseling patient: Coding Level of Care Code 69420 Subseq Hosp Care Lvl 3 Diagnoses Acute respiratory failure with hypoxia J96.01 COPD exacerbation J44.1 COVID-19 U07.1 Hypertension I10 Hypertension type: unspecified GERD (gastroesophageal reflux disease) K21.9 Esophagitis presence: esophagitis presence not specified History of SCC (squamous cell carcinoma) of skin Z85.828 DVT prophylaxis Z29.9 Diarrhea R19.7 Discharge planning issues Z02.9 (1) Hypertension Hypertension type: unspecified Qualified Code(s): I10 - Essential (primary) hypertension (2) GERD (gastroesophageal reflux disease) Esophagitis presence: esophagitis presence not specified Qualified Code(s): K21.9 - Gastro-esophageal reflux disease without esophagitis
[2020-09-05 07:25] LABS: Hematocrit (blood only) 38.3 % (42-52); Hemoglobin 12.6 g/dL (14.0-18.0); Mean Corpuscular Hemoglobin 28.1 pg (25-34); Mean Corpuscular Hgb Conc 32.9 g/dL (32-36); Mean Corpuscular Volume 85.3 fL (80-100); Mean Platelet Volume 12.2 fL (7.4-10.4); Platelet Count 81 K/uL (130-400); RDW Coefficient of Variation 13.5 % (11.5-14.5); RDW Standard Deviation 41.7 fL (36.4-46.3); Red Blood Count 4.49 M/uL (4.7-6.1); White Blood Count 3.82 K/uL (4.8-10.8)
[2020-09-05 07:43] LABS: Hypogranular Neutrophils 2+; Immature Granulocytes # (auto) 0.09 K/uL (0.00-0.02); Immature Granulocytes % (auto) 2.4 %; Lymphocytes # (auto) 0.47 K/uL (1.2-3.4); Lymphocytes % (auto) 12.3 %; Monocytes # (auto) 1.02 K/uL (0.11-0.59); Monocytes % (auto) 26.7 %; Neutrophils # (auto) 2.24 K/uL (1.4-6.5); Neutrophils % (auto) 58.6 %
[2020-09-05 07:44] LABS: Albumin Level 2.9 gm/dl (3.4-5.0); BUN Creatinine Ratio 28.6 (10-20); Calcium 8.7 mg/dl (8.5-10.1); Creatinine Clr Calc Pharmacy 88.9 ml/min; Est GFR (African American) 104.3; Potassium 3.8 mmol/L (3.5-5.1)
[2020-09-05 07:46] LABS: Albumin Globulin Ratio 0.8 (0.9-2); Bilirubin,Total 0.8 mg/dl (0.2-1); Globulin 3.5 gm/dl (2.5-4.0); Total Protein 6.4 gm/dl (6.4-8.2)
[2020-09-05] MEDS: DEXAMETHASONE SOD PHOSPHATE 6 MG in SYRINGE 0 ML IV SCH (07:48)
[2020-09-05] MEDS: UMECLIDINIUM BROMIDE 62.5MCG/BLISTER 7 PUFFS/INHALER INH SCH (08:49)
[2020-09-05] MEDS: ENOXAPARIN INJ 40 MG/0.4 ML SYR SQ SCH (08:49)
[2020-09-05] MEDS: FAMOTIDINE 20 MG TAB PO SCH (08:49)
[2020-09-05] MEDS: METOPROLOL SUCC 25MG EXT REL TAB PO SCH (08:49)
[2020-09-05 12:05] VITALS: TEMP 97.2; O2SAT 91
[2020-09-05] MEDS: REMDESIVIR 100 MG in SODIUM CHLORIDE 0.9% 230 ML IV SCH (13:40)
[2020-09-05] MEDS: SODIUM CHLORIDE 0.9% 10ML FLUSH IV SCH (13:41)
[2020-09-05 14:28] VITALS: BP 136/65
[2020-09-05 15:12] VITALS: PULSE 75
--- NOTE | 2020-09-05 15:31 | Discharge Summary ---
Date of Service September 05, 2020 Admission HPI Per Admitting Provider 85-year-old male with a history of COPD who was discharged on 26 August During that hospital stay after being admitted with Covid having gastroenteritis. the patient did not receive remdesivir but did receive conv alescent plasma and was discharged to complete a 10-day course of dexamethasone. Patient returns with increased feelings of illness. tachycardic and mildly hypoxic on presentation. He remains with bone marrow suppression with leukopenia and thrombocytopenia as well as when he was discharged. He is mildly hypokalemic. His chest x-ray is not showing significant Covid changes. He is requiring increasing oxygen supplementation at this time. Principal Diagnosis (presumed) COPD exacerbation seconary to COVID19 Discharge Exam gen aaox3 pleasant nad heent nc at mmm lungs still quite quiet throughout - diminished air entry - but actually significantly better than any prior exam as far as air entry - no r/r/w good effort no accessory muscles. skin no rashes no pallor or icterus neuro no focal deficits other than KAW (chronic) Discharge Data Allergies Allergy/AdvReac Type Severity Reaction Status Date / Time No Known Drug Allergies Allergy Unknown Verified 09/01/20 07:55 Consultations 09/01/20 07:47 ED Decision to Admit Stat 09/04/20 09:15 Consult Case Management - Discharge Planning Routine Hospital Course (1) Acute respiratory failure with hypoxia: Patient presents to the ER with increasing hypoxia and tachypnea. Patient does have a history of tobacco use and likely COPD. 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 He recently was positive for Covid (08/25). During his last hospital stay which she was discharged on the he went home on dexamethasone and did receive convalescent plasma while he was here with did not receive remdesivir. Started remdesivir last dose 09/05 treated for COPD exacerbation (see below) definitely improving. stable for home, set up for home O2 (2) COPD exacerbation: strongly presumed COPD based on clinical presentation and ~80pk/yr smoking hx, exacerbation due to covid19 -consider PFTs as outpt to confirm -continue inhalers for now- home on symbicort/spiriva -continue systemic steroids for another 10 day course. should be off in short enough total duration to not need taper, but outlined "red flag" symptoms to watch for if any worsening that might require a taper instaed (3) COVID-19: Patient was positive on 25 August 2020 convalescent plasma given during that admission remdesivir day 02/09 today dexamethasone as above appears improving and stable for home (4) Hypertension: BP good, continue home meds (5) GERD (gastroesophageal reflux disease): no complaints of this (6) History of SCC (squamous cell carcinoma) of skin: (7) DVT prophylaxis: lovenox utilized during his stay (risks/benefits tight due to thromobocytopenia - but no bleeding and plt low but not catastrophically low and stable; acute hx of covid and chronic hx w prior malignancy raise VTE risk - hence favoring continue lovenox and follow closely) (8) Diarrhea: likely relates to covid - showing improvement (9) Discharge planning issues: improving appears stable for home Total Time Total Time Spent Total Time Spent (In Minutes): >30 Discharge Plan Discharge Items Patient Disposition: Home - Home Health Services Reason For Visit: ACUTE RESP FAILURE W HYPOXIA Discharge Diagnosis: COPD exacerbation related to COVID19 Activity: Per Instructions section Activity Comment: use caution with any unsteadiness, use oxygen for any exertion for now Non-emergency contact: Primary Care Provider Call non-emergency contact if: you have any medication questions and your symptoms worsen Follow-up/Referrals: Harry Rodriguez III, MD [Primary Care Provider] - Diet: Regular Addtl Attending Provider Instructions: COPD exacerbation -while you have never been formally diagnosed with COPD, your smoking history, the way your symptoms presented, and how you examined all fit with having had a flare up of COPD. most COPD flare ups are brought on by viral infections - so in your case it just happened to be COVID19 that caused the flare up. fortunately you are getting better surprisingly well for what you're going through -see below under "COPD" for treatment specific to that (ie the longer term treatment as far as inhalers, further workup, etc) -to continue to help you get better acutely, we'll be doing another course of steroids (dexamethasone) and supporting your breathing with extra oxygen ---steroids: you've been on dexamethasone during your time here in the hospital, and to continue to help suppress the inflammation in your lungs, we'll finish out a course of dexamethasone again (6mg a day for 6 more days to round out a 10 day course of treatment). knowing that you were on steroids when you were admitted before, and are back on them now, we'll want to pay attention to how you feel in the 2-3 days after you're done with the steroids --> you shouldn't have been on them long enough to need to taper off, but if you were to feel vaguely bad (no appetite, more dizzy/weak, general malaise) then let Dr Rodriguez know - if that were the case then we might need to taper the steroids over a long period of time. again, though, since that is quite unlikely to be needed, for now we'll treat with the 10 day course and just stop them to make medication regimens easier for you ----oxygen: as is the case with a lot of our COVID patients, and with a lot of our patients who have worse COPD than they knew, you're not feeling as short of breath "as you should be" for your oxygen levels. that doesn't really make it safe - it just makes it something that you should pay attention to. it would be very beneficial for you to get a pulse oximeter (the finger meter that checks oxygen levels) for home, and use it to make sure you stay at or above 90% (you don't need to turn up the oxygen to much higher than that though, somewhere in the 90-92% range is fine). when respiratory therapy tested you, it looked like you mostly just needed oxygen at 2L when you're walking, and that you did OK at rest - so you can use that as a "starting point." as we discussed, it is a common misconception that people get addicted to oxygen and can't get off -- this idea mixes up cause and effect. people end up needing oxygen because their lungs don't work as well as they should, and since we can't reverse lung disease, once someone has gotten to where they need oxygen for their lungs, that is why most people don't come off. you won't make your lungs weaker or cause yourself to get addicted to oxygen by using it. it is possible as you get better from the COPD exacerbation/COVID that you might not need to use the oxygen indefinitely, but that will be determined based on how you're doing and what your numbers are showing as you get better COVID19 -you appear to be turning the corner with the COVID at this point, and you're now far enough removed from your initial time of getting infected that it's not likely you're going to see another downward turn. obviously if you were feeling worse again (especially with any new/worse breathing difficulty) we would want you seen right away, but this far out from diagnosis the concern would be much more if you were developing a pneumonia just secondary to having been sick for so long (which fortunately we don't seem to be seeing as much after COVID as we do with influenza) -you've now been treated with convalescent plasma, dexamethasone, and 5 days of remdesivir -based off of current CDC guidance, you can think of yourself as not very likely to be contagious at this point -- the current guidelines are that if it's been 10 days since symptoms first appeared and no fever for 24 hours (so you fit those criteria) and your other symptoms are improving (which seems to be the case but of course is the one that is the most "open to interpretation" and sometimes it even is recommended to isolate for 20 days when symptoms are severe) -- with that in mind, given that you and your daughter have both had CO VID, you can for all practical purposes look at your situation together as safe; your son is the more concerning one as far as possibly getting him sick. as we discussed, antibody testing is an inexact science at this point - with decent amounts of false results - but in the context of two of you having had known COVID, if he were to test antibody positive, logic would be to believe it overall. as far as not exposing him with it being uncertain, probably for safety just assume you could be a little infectious for the next few days, but as you keep getting better that risk will go down each day. (certainly i wish i had better, less vague, directions for you on this, but with it being a new virus we have to work with CDC recommendations and our experiences with other similar viruses we have a better understanding of) COPD -certainly with your symptoms, exam, and smoking history, you appear to be likely to have underlying COPD (smoker's lung) -technically this is a diagnosis that is made with what are called pulmonary function tests (PFTs) - where they measure how much air you move with deep inhales and exhales. -because I was only seeing you when you were sick, and that can create misleading appearances, it would be worthwhile to have Dr Rodriguez order PFTs in the near future (get better from this first - so probably it would be a reasonable target to try to get them done in October) -for now, we'll treat as thought you do have COPD - and use an approach with multiple inhalers to keep your breathing doing as well as it can maintenance inhalers: people with COPD do better when they use regular inhalers on a routine basis. just like if someone has high blood pressure they don't just take blood pressure medication as-needed, people with COPD tend to breathe much easier if they take inhalers to keep their lungs as open and un- inflamed as possible. there are three main classes of inhalers that help with COPD (anticholinergics, beta agonists, and steroids) and we'll start with all three, and then depending on how you're doing over time and depending on what the PFTs show, Dr Rodriguez can alter the regimen to best fit what you need. there are a ton of different brands of different combinations - in our experience most people don't really do better with one brand or another - most people do best when they're on one of each of the classes of inhalers. in that respect, since insurance coverage is different from person to person and fairly hard to figure out, if you get to the pharmacy and something seems needlessly expensive, have them call me so we can give trial to a "different version of the same thing" spiriva (tiotropium) - this is an anticholinergic inhaler. it works to reduce how inflamed your lungs are, and reduce how much mucous your lungs p roduce. it is once a day every day (whether you feel good, bad, or anything in between) symbicort (budesonide, formoterol) - this is a combination of a beta agonist and a steroid. it helps keep airways open and reduces inflammation by a different mechanism than the spiriva. it is twice a day every day (whether you feel good, bad, or anything in between). rinse your mouth after using it since the steroid can set you up for thrush. rescue inhaler: we'll also prescribe albuterol as a rescue inhaler - this is the one you take on an as-needed basis. you can take a puff every four hours if you're feeling tight/short of breath/wheezy/etc. weakness/unsteadiness -this is common when someone gets sick with anything fairly severe, so it is certainly not surprising that you're feeling a bit weak and unsteady -at home, the more you are able to do, typically over time the stronger you'll get, but remember that a fall can be a huge setback (or even land you back in the hospital); so while we want you up and around to the best of your ability, do so only when you're putting safety first. ie it will be good to be up and walking, but only in ways that you're protecting yourself from having a fall -make sure you're getting enough to eat. it is pretty common when people get sick - especially with lung problems - to lose their appetite. often when people decline, we see that an acute malnutrition is a big underlying cause, so make sure that between food, drinks (and protein shakes as a "cheater") you're getting in the better part of [id number] calories per day. in a few weeks Dr Rodriguze will want you to get set up for a little follow up labwork (CBC, CMP) simply to recheck the labs that were "off" related to the COVID and make sure they've gotten back to normal Stand-Alone Forms: My [facility], Smoking Cessation Medications and DC Order Prescriptions: New Spiriva with HandiHaler 18 mcg capsule, w/inhalation device 1 cap inhalation DAILY Qty: 30 RF: 0 budesonide-formoterol [Symbicort] 80-4.5 mcg/actuation HFA aerosol inhaler 2 inh inhalation BID Qty: 10.2 RF: 0 Continued famotidine 20 mg tablet 20 mg PO BID Qty: 60 RF: 11 dexamethasone 0.1 % drops,suspension 1 applic OT BID PRN (Reason: itching) Qty: 5 RF: 0 mometasone 0.1 % cream 1 applic TOP DAILY PRN (Reason: allergic reaction) Qty: 15 RF: 0 metoprolol succinate 25 mg tablet extended release 24 hr 0 mg PO DAILY RF: 0 dexamethasone [Decadron] 6 mg tablet 6 mg PO DAILY Qty: 6 RF: 0 Discharge Orders: Discharge Order (Routine); Ordered 09/05/20 Ordered By: Robert Baker Admission Data Admit Date/Time: 09/01/20 07:59 Attending Provider: Robert Baker Admit Provider: Vickey Milligan Primary Care Provider: Harry Rodriguez III Other Providers: Vickey Milligan Other Interventions: Discharge Summary Assessment (RN) Last Done: 09/05/20 14:25 Coding Level of Care Code D/C Day Management >30 mins Diagnoses Acute respiratory failure with hypoxia J96.01 COPD exacerbation J44.1 COVID-19 U07.1 Hypertension I10 Hypertension type: unspecified GERD (gastroesophageal reflux disease) K21.9 Esophagitis presence: esophagitis presence not specified History of SCC (squamous cell carcinoma) of skin Z85.828 DVT prophylaxis Z29.9 Diarrhea R19.7 Discharge planning issues Z02.9
== END 2020-09-05 15:21 | disposition home or self-care (01) | DRG 177 ==
LOC: ED 06:26 → SUATTDRO 07:59 → 2S 07:59

== ENCOUNTER 2020-11-30 11:21 | Observation (INO) ==
[2020-11-30] MEDS ORDERED: SODIUM CHLORIDE 0.9% 1000ML 500 ML IV ONE (12:18)
[2020-11-30 12:23] LABS: Basophils # (auto) 0.01 K/uL (0-0.2); Basophils % (auto) 0.2 %; Hematocrit (blood only) 41.4 % (42-52); Hemoglobin 13.7 g/dL (14.0-18.0); Immature Granulocytes # (auto) 0.07 K/uL (0.00-0.02); Immature Granulocytes % (auto) 1.2 %; Lymphocytes # (auto) 0.73 K/uL (1.2-3.4); Lymphocytes % (auto) 12.2 %; Mean Corpuscular Hgb Conc 33.1 g/dL (32-36); Mean Corpuscular Volume 84.5 fL (80-100); Monocytes # (auto) 1.03 K/uL (0.11-0.59); Monocytes % (auto) 17.3 %; Neutrophils # (auto) 4.12 K/uL (1.4-6.5); Neutrophils % (auto) 69.1 %; Platelet Count 197 K/uL (130-400); RDW Coefficient of Variation 14.6 % (11.5-14.5); RDW Standard Deviation 45.2 fL (36.4-46.3); White Blood Count 5.96 K/uL (4.8-10.8)
[2020-11-30 12:28] LABS: Albumin Level 3.1 gm/dl (3.4-5.0); Aspartate Aminotransferase 18 U/L (15-37); BUN Creatinine Ratio 8.5 (10-20); Blood Urea Nitrogen 8 mg/dl (7-18); Calcium 8.6 mg/dl (8.5-10.1); Carbon Dioxide 25 mmol/L (21-32); Chloride 100 mmol/L (98-107); Creatinine Clr Calc Pharmacy 75.2 ml/min; Est GFR (African American) 92.1; Est GFR (Non-African American) 79.4; Glucose 117 mg/dl (70-99); Potassium 3.1 mmol/L (3.5-5.1); Sodium 134 mmol/L (136-145)
[2020-11-30 12:39] LABS: Alanine Aminotransferase 21 U/L (12-78); Albumin Globulin Ratio 0.7 (0.9-2); Alkaline Phosphatase 63 U/L (45-117); Bilirubin,Total 0.9 mg/dl (0.2-1); Creatine Kinase 43 U/L (39-308); Creatine Kinase MB < 1.0 ng/ml (0.5-3.6); Globulin 4.6 gm/dl (2.5-4.0); Total Protein 7.7 gm/dl (6.4-8.2); Troponin I < 0.015 ng/ml (0-0.045)
[2020-11-30 12:51] LABS: T4 Free Thyroxine 0.87 ng/dl (0.8-1.6)
[2020-11-30] MEDS ORDERED: POTASSIUM CHLORIDE CRTAB 20 MEQ TABCR PO STA (12:54)
--- NOTE | 2020-11-30 12:54 | XRay Report ---
SINGLE VIEW CHEST CLINICAL HISTORY: Generalized weakness. FINDINGS: An AP, portable, upright chest radiograph is compared to study dated 10/06/2020 and correla chen with chest CT dated 03/23/2017. The examination is degraded by portable technique and patient rota tion. The heart is enlarged. There is pulmonary vascular congestion. There are small pleural effusio ns with bibasilar atelectasis. Perihilar airspace opacities likely represent interstitial edema. No p neumothorax is seen. The skeletal structures are osteopenic. The bony thorax is grossly intact. IMPRESSION: 1. Cardiomegaly with evidence of congestive failure. 2. Perihilar opacities likely represent interstitial edema. Correlate clinically for evidence of a fernandes perimposed infectious/inflammatory pneumonitis. 3. Small pleural effusions. ACT 112: Negative or not required by law. Electronically signed by: Gil Zaidi M.D. 11/30/2020 12:53 PM
[2020-11-30] MEDS ORDERED: FUROSEMIDE 40 MG/4 ML VIAL IV STA (12:56)
[2020-11-30] MEDS ORDERED: OPTIRAY 320 125ml IV ONE (13:13)
--- NOTE | 2020-11-30 13:28 | CT Scan Report ---
HEAD CT NONCONTRAST CT DOSE: 729.78 mGycm HISTORY: Altered mental status. TECHNIQUE: Multiaxial CT images of the head were performed without the use of intravenous contrast. A utomated exposure control was utilized for this study. A dose lowering technique was utilized adheri ng to the principles of ALARA. Comparison: Head CT 10/06/2020. Findings: No change in the bilateral mastoid effusions, right greater than left. The calvarium and sk ull base are intact. There is no mass, hematoma, midline shift, acute infarct. White matter hypodensi ty is nonspecific but suggestive of microvascular ischemic change. The ventricles and sulci demonstra te mild age-related involutional changes. Impression: No significant change compared to the prior study. No acute intracranial abnormality. ACT 112: Negative or not required by law. Electronically signed by: Carlos A Martinez M.D. 11/30/2020 1:27 PM
--- NOTE | 2020-11-30 13:48 | CT Scan Report ---
CT ANGIOGRAM OF THE CHEST CLINICAL HISTORY: Atypical chest pain. Possible acute pulmonary embolism. History of head and neck ca rcinoma. COMPARISON STUDY: 03/23/2017 TECHNIQUE: Following the IV administration of 120 mL of Optiray-320, CT angiogram of the thorax was p erformed from the thoracic inlet to the lung bases utilizing the pulmonary embolus protocol. Images a re reviewed in the axial, sagittal, and coronal planes. IV contrast was administered without complica tion. MIP imaging was performed. A dose lowering technique was utilized adhering to the principles o f ALARA. CT DOSE: 540.63 mGycm FINDINGS: Within the visualized portions the neck, there is nonspecific right piriform sinus asymmetry. There i s a 12 mm exophytic right-sided thyroid nodule There is mild mediastinal andr hilar lymphadenopathy. There was no evidence of thoracic aortic dilatation. No central emboli are visualized. Evaluation of peripheral artery branches is limited due to respirat ory motion artifact. There is a small subsegmental right lower lobe embolus versus artifact. There is a small right pleural effusion and trace left pleural effusion There is an enlarging 26 mm groundglass right apical opacity. There are subtle peripheral groundglass opacities within the left upper lobe and right upper lobe. There are groundglass opacities within th e right lower lobe. The findings are suspicious for a multifocal pneumonia. A two-month follow-up CT scan subsequent to treatment is recommended in follow-up. IMPRESSION: 1. Motion compromised study 2. Small subsegmental right lower lobe pulmonary embolism versus motion artifact. Correlation with le g ultrasonography might be considered in follow-up. 3. No central emboli identified 4. Small right pleural effusion and trace left pleural effusion 5. Bilateral groundglass pulmonary opacities suspicious for a multifocal pneumonia 6. Enlarging 26 mm right apical groundglass opacity. A low-grade neoplasm cannot be excluded 7. Interval development of mediastinal and hilar lymphadenopathy statistically reactive 8. A two-month follow-up CT scan subsequent treatment is recommended in follow-up 9. 12 mm exophytic right lobe thyroid nodule. Nonspecific asymmetry in the region of the right pirifo rm sinus ACT 112: Positive. There are findings on this exam that require communication between the performing entity and the patient following Patient Test Result Information Act ([place] Act 112) guidelines. Electronically signed by: Iban Kunz M.D. 11/30/2020 1:47 PM
[2020-11-30] MEDS: POTASSIUM CHLORIDE / WTR 10 MEQ/100 ML PLCT IV SCH ×2 (13:53→15:21)
[2020-11-30] MEDS ORDERED: levoFLOXacin/D5W 750 MG/150 ML BAG IV STA (14:27)
[2020-11-30] MEDS ORDERED: PIPERACILLIN/TAZOBACTAM 4.5 GM/120 ML BAG IV ONE (14:27)
[2020-11-30] MEDS ORDERED: PIPERACILL/TAZOBAC CONSULT ACTIVE PRN ×2 (14:27→17:50)
[2020-11-30 14:54] LABS: Base Excess VBG 0 mEq/L; HCO3 VBG 26 mmol/L; PCO2 VBG 47 mmHg (38-50); PO2 VBG 22 mmHg; pH VBG 7.36 (7.36-7.41)
[2020-11-30 14:55] LABS: Oxygen Saturation VBG < 60.0 %
[2020-11-30 15:42] LABS: C Reactive Protein 10.6 mg/dl (0-0.29); Ferritin 444.7 ng/ml (8-388)
--- NOTE | 2020-11-30 15:44 | History & Physical Report ---
Date of Service November 30, 2020 Assessment & Plan (1) Aspiration pneumonia: Patient with chronic choking and reported dysphagia - Hypoxia, oxygen increase, sputum production, consolidation, chronic lymphopenic WBC at 5 (nml 3) - emperic therapy for aspiration PNA, de-escalate 72 hours if clinical symptoms improve - Zosyn 3.375 - Levaquin changed to Azithro for COPD component - Speech/swallow evaluation - ASSOCIATE CIVIL ENGINEER, PCT pending-- re-draw in 72 hours assist with de-esclation of ABX (2) Hypoxia: PNA vs. COPD exacerbation vs Extension of Cancer with plueral effusions Likely multiple components as above -Supportive care at this time - may have deconditioning component as well - progression of cancer is high on cause, patient again wishes no workup/treatment for that - no immediate need for addressing pulmonary effusions, follow with diuresing an d supportive care - if increase will then discuss with patient for need for intervention. - COVID negative, will send biofire for influenza (3) COPD exacerbation: Increase cough, increase in sputum and cough, no therapy at home, WBC as above - Add on steroids as peripheral ground glass opacities present may still be scarring and inflammation changes from COVID vs new - EOS not present on WBC- will still add in AZITHRO for dual benefit - Support oxygen as needed - Albuterol/Iatropium scheduled for 24 hours then change to PRN (4) Pulmonary embolism: Subsegmental pending lower extremity dopplers - anticoagulation prophylactic vs full pending results. 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 As above the patient wong not wish further evaluation and treatment. Small right pleural effusion and trace left pleural effusion Bilateral groundless pulmonary opacities suspicious for a multifocal pneumonia Enlarging 26 mm right apical groundglass opacity. A low-grade neoplasm cannot be excluded Interval development of mediastinal and hilar lymphadenopathy statistically reactive A two-month follow-up CT scan subsequent treatment is recommended in follow-up 12 mm exophytic right lobe thyroid nodule. 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 Most of the history and physical gained from the daughter who the patient lives with secondary to the patient's hearing difficulty. The patient was reportedly doing well following his chemo and radiation until August 2020, where he was diagnosed with COVID and was admitted to the hospital for hypoxia. Since then, he has not totally recovered. He is more somnolent at home and continues to be short of breath ambulating around the house, can go up about 6-7 stairs before he has to take a break, and gets easily fatigued and short of breath while eating. He does have oxygen at home that he refuses to wear "he doesn't need it". He is able to sleep flat with no orthopnea or dyspnea. He has had some concerns for aspiration and choking while eating per chart review and per the daughter. He spends the majority of his day sitting and sleeping in the chair. He was brought to the hospital today for increase somnolence and shortness of breath. He was noted to be hypoxic on room air at 85% and was placed on 2l NC with appropriate increase to 94-97%. He had a CT scan performed in the em ergency room, got IV Lasix 20mg, and was started on broad spectrum antibiotics. The patient has recently been followed up with ENT given patient's history and persistent otalgia with unexplained weight loss, normal ear exam and reassuring left audiometric assessment, that it was concerning to Dr. Krueger for recurrence of malignancy. He performed a laryngoscopy in the office and was limited by thick secretions. He recommended a direct laryngoscopy with possible biopsy in the operating room for further evaluation, and the patient refused. I have also discussed with the patient regarding his lymphnodes in his chest and lung, and again the patient does not want any biopsy or work up "if it is something, then it is what it is and I don't want treated for it." The daughter was present for the entire examination and is in ok with her father's choice as well. Patient had a brain MRI in October that did not show any metastic disease. The patient will be admitted for work up of pulmonary disease, CT scan findings, antibiotics, and PT/OT. 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, right piriform sinus,SCC, p16 negative, 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, stage IV (thyroid cartilage invasion) Status post completion of combined radiation and chemotherapy Radiation completed 12/31/2015 received 6996 cGy" On 01/07/16 10:48 Sandra Mckeon wrote "DIAGNOSIS: Hypopharynx, right piriform sinus,SCC, p16 negative, 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, stage IV (thyroid cartilage invasion) Status post completion of combined radiation and chemotherapy Radiation completed 12/31/2015 received 6996 cGy" On 10/27/15 15:29 Elmer Anup wrote "DIAGNOSIS: Hypopharynx, right piriform sinus,SCC, p16 negative, 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, 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 Surgical History H/O knee surgery History of cataract surgery History of colonoscopy History of left knee surgery History of sinus surgery Biopsy History of skin surgery History of tonsillectomy Status post Mohs surgery Family History Father Cancer Social History Smoking Status: Former smoker Tobacco Type: Cigarettes Second Hand Exposure: No; Hx Alcohol Use: No Hx Substance Use: No Preferred Language: Georgian Communication Ability: Effective 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 Beliefs That Will Affect Care: None Current Living Situation: Family Current Living Situation Comment: lives with son and daughter Feels Safe at Home: Yes Assistive Devices: Oxygen - Continuous Review of Systems Review of Systems: REVIEW OF SYSTEMS: Constitutional: No fever, sweats or chills Eyes: No diplopia, no worsening or blurred vision ENT: (+) hearing loss, trouble swallowing, coughing while eating Respiratory: (+) cough, thick clear sputum, dyspnea at rest or on exertion Cardiovascular: No chest pain, tightness or palpitations Abdomen: No pain, nausea, vomiting, diarrhea or constipation Musculoskeletal: No joint pain, calf pain, swelling Neurologic: No weakness, numbness/tingling, or balance problems, easily fatigued Psychiatric: No anxiety or depression Skin: No rash or itch Physical Exam Physical Exam: PHYSICAL EXAM: General: awake, alert, no apparent distress Head: Normocephalic, atraumatic ENT: PERRL, EOMI, no pharyngeal exudate, mucous membranes moist, bilateral difficulty hearing Neuro: AAO x 3, speech clear and appropriate, strength intact bilaterally 5/5, sensation intact and equal all extremities and no pronator drift, no ataxia Chest: equal rise and fall of the chest, no accessory muscle use, no heaves or thirlls, scattered rhonchi through out, inspiratory wheeze on right, decreased bilaterally in bases Rt>LT, on 2l nc Cardiac: Regular rate and rhythm, telemetry reviewed, skin warm dry, cap refill <3 seconds, peripheral pulses +2 no JVD, no murmur, (+1) edema to bilateral feet to the ankle. GI: NABS x 4 quadrants, soft, nontender to palpation, no rebound, guarding or tenderness : Spontaneously voiding into condom cath, no pain, no CVA tenderness, Extremities: Normal inspection, no peripheral edema or erythema, calfs nontender to palpation Psych: Normal mood and affect Skin: no rash or erythema Results & Data Results & Data ([facility]) Vital Signs (Past 12 Hours) Vital Signs Temp Pulse Pulse Resp BP BP Pulse Ox 11/30/20 12:30 84 22 166/100 H 95 11/30/20 12:20 97 11/30/20 11:30 96 H 22 167/88 H 93 11/30/20 11:22 37.3 C 98 H 24 139/98 93 Laboratory Results Abnormal lab results 11/30/20 11/30/20 11/30/20 Range/Units 11:39 11:39 11:39 Hgb 13.7 L (14.0-18.0) g/dL Hct 41.4 L (42-52) % RDW Coeff of Mikhail 14.6 H (11.5-14.5) % MPV 12.0 H (7.4-10.4) fL Lymph # (Auto) 0.73 L (1.2-3.4) K/uL [place] # (Auto) 1.03 H (0.11-0.59) K/uL Immature Gran # (Auto) 0.07 H (0.00-0.02) K/uL ESR 56 H (0-14) mm/hr Sodium 134 L (136-145) mmol/L Potassium 3.1 L (3.5-5.1) mmol/L BUN/Creatinine Ratio 8.5 L (10-20) Glucose 117 H (70-99) mg/dl Albumin 3.1 L (3.4-5.0) gm/dl Globulin 4.6 H (2.5-4.0) gm/dl Albumin/Globulin Ratio 0.7 L (0.9-2) TSH 58.600 H (0.300-4.500) uIu/ml Diagnostic Findings CT ANGIOGRAM OF THE CHEST CLINICAL HISTORY: Atypical chest pain. Possible acute pulmonary embolism. History of head and neck carcinoma. COMPARISON STUDY: 03/23/2017 TECHNIQUE: Following the IV administration of 120 mL of Optiray-320, CT angiogram of the thorax was performed from the thoracic inlet to the lung bases utilizing the pulmonary embolus protocol. Images are reviewed in the axial, sagittal, and coronal planes. IV contrast was administered without complication. MIP imaging was performed. A dose lowering technique was utilized adhering to the principles of ALARA. CT DOSE: 540.63 mGycm FINDINGS: Within the visualized portions the neck, there is nonspecific right piriform sinus asymmetry. There is a 12 mm exophytic right-sided thyroid nodule There is mild mediastinal andr hilar lymphadenopathy. There was no evidence of thoracic aortic dilatation. No central emboli are visualized. Evaluation of peripheral artery branches is limited due to respiratory motion artifact. There is a small subsegmental right lower lobe embolus versus artifact. There is a small right pleural effusion and trace left pleural effusion There is an enlarging 26 mm groundglass right apical opacity. There are subtle peripheral groundglass opacities within the left upper lobe and right upper lobe. There are groundglass opacities within the right lower lobe. The findings are suspicious for a multifocal pneumonia. A two-month follow-up CT scan subsequent to treatment is recommended in follow-up. IMPRESSION: 1. Motion compromised study 2. Small subsegmental right lower lobe pulmonary embolism versus motion artifact. Correlation with leg ultrasonography might be considered in follow-up. 3. No central emboli identified 4. Small right pleural effusion and trace left pleural effusion 5. Bilateral groundglass pulmonary opacities suspicious for a multifocal pneumonia 6. Enlarging 26 mm right apical groundglass opacity. A low-grade neoplasm cannot be excluded 7. Interval development of mediastinal and hilar lymphadenopathy statistically reactive 8. A two-month follow-up CT scan subsequent treatment is recommended in follow- up 9. 12 mm exophytic right lobe thyroid nodule. Nonspecific asymmetry in the re gion of the right piriform sinus HEAD CT NONCONTRAST CT DOSE: 729.78 mGycm HISTORY: Altered mental status. TECHNIQUE: Multiaxial CT images of the head were performed without the use of intravenous contrast. Automated exposure control was utilized for this study. A dose lowering technique was utilized adhering to the principles of ALARA. Comparison: Head CT 10/06/2020. Findings: No change in the bilateral mastoid effusions, right greater than left. The calvarium and skull base are intact. There is no mass, hematoma, midline shift, acute infarct. White matter hypodensity is nonspecific but suggestive of microvascular ischemic change. The ventricles and sulci demonstrate mild age- related involutional changes. Impression: No significant change compared to the prior study. No acute intracranial abnormality. Code Status & VTE Plan Code Status Full VTE: SCD's, chemoprophylaxis VTE Prophylaxis Plan VTE Prophylaxis will be ordered: Yes Supervising Physician Co-Signing Physician Notes I supervised AYLEEN Rivera on this admission. I interviewed and examined the patient independently of him. The plan is as written in his note except for any following changes/exceptions: None 85yo M w/ hx of extensive head and neck cancers. Has been having left-sided ear pain for some time with recommendation for operative laryngoscopy which he declined. At this point, will treat for aspiration pneumonia and get an EDI PROGRAMMER ANALYST consult for probable chronic aspiration. Given his desire to not get extensive treatment, we also will consult palliative care to discuss life goals, overarching goals of care. PG Care Time/CCT Total # of Minutes Spent Total Time Spent with Patient: Total time spent is greater than 50% in coordination of care (as documented) at patient's floor/unit and/or counseling patient: Coding Level of Care Code 70984 Initial Inpt Care Lvl 3 Diagnoses Aspiration pneumonia J69.0 Aspiration pneumonia type: unspecified Laterality: right Lung location: lower lobe of lung Hypoxia R09.02 COPD exacerbation J44.1 Pulmonary embolism I26.93 Pulmonary embolism type: single subsegmental (without acute cor pulmonale) GERD (gastroesophageal reflux disease) K21.9 Esophagitis presence: esophagitis presence not specified Hypopharyngeal cancer C13.9 Hypothyroidism E03.8 Hypothyroidism type: other (1) Hypothyroidism Hypothyroidism type: other Qualified Code(s): E03.8 - Other specified hypothyroidism (2) Aspiration pneumonia Aspiration pneumonia type: unspecified Laterality: right Lung location: lower lobe of lung Qualified Code(s): J69.0 - Pneumonitis due to inhalation of food and vomit (3) Pulmonary embolism Pulmonary embolism type: single subsegmental (without acute cor pulmonale) Qualified Code(s): I26.93 - Single subsegmental pulmonary embolism without acute cor pulmonale (4) GERD (gastroesophageal reflux disease) Esophagitis presence: esophagitis presence not specified Qualified Code(s): K21.9 - Gastro-esophageal reflux disease without esophagitis
[2020-11-30] MEDS ORDERED: LEVOTHYROXINE SODIUM 125 MCG TABLET PO ONE (16:21)
--- NOTE | 2020-11-30 16:46 | Ultrasound Report ---
BILATERAL LOWER EXTREMITY VENOUS DOPPLER HISTORY: Possible pulmonary embolus. Evaluate for DVT. COMPARISON STUDY: None. FINDINGS: There is normal compressibility, flow, and augmentation within the bilateral lower extremit y deep venous systems. IMPRESSION: No DVT within the right or left lower extremity. ACT 112: Negative or not required by law. Electronically signed by: Carlos A Martinez M.D. 11/30/2020 4:44 PM
--- NOTE | 2020-11-30 16:57 | Electrocardiogram Report ---
Test Reason : Blood Pressure : / mmHG Vent. Rate : 100 BPM Atrial Rate : 100 BPM P-R Int : 198 ms QRS Dur : 094 ms QT Int : 358 ms P-R-T Axes : 045 -23 009 degrees QTc Int : 461 ms Normal sinus rhythm Nonspecific ST abnormality Normal ECG When compared with ECG of 06-OCT-2020 07:01, Premature ventricular complexes are no longer Present Criteria for Inferior infarct are no longer Present Confirmed by Beto Alexander ([id number]) on 11/30/2020 4:57:37 PM Referred By: REFERRED SELF Confirmed By:Kaleb Alexander
[2020-11-30] MEDS ORDERED: AZITHROMYCIN 250 MG TAB PO ONE (17:50)
[2020-11-30] MEDS ORDERED: ALBUT/IPRATROP 3MG/0.5MG NEB 3 ML VIAL NEB PRN (17:50)
[2020-11-30] MEDS ORDERED: IPRATROPIUM BROMIDE/ALBUTEROL respimat INH INH SCH (18:00)
[2020-11-30] MEDS: methylPREDNISolone 40 MG in SYRINGE 0 ML IV SCH (18:47)
[2020-11-30 19:33] LABS: Influenza A virus by PCR Negative (Negative); Influenza B virus by PCR Negative (Negative)
[2020-11-30] MEDS: PIPERACILLIN/TAZOBACTAM 3.375 GM in DEXTROSE 5% 100 ML IV SCH (19:36)
[2020-11-30] MEDS: Ipratropium HFA Inhaler (Combivent Respimat P&T Subs) INH SCH (20:32)
[2020-11-30] MEDS: Albuterol HFA 8 GM Inhaler (Combivent Respimat P&T Subs) INH SCH (20:32)
[2020-11-30] MEDS ORDERED: POTASSIUM CHLORIDE 20 MEQ/15 ML UDC PO ONE (21:00)
[2020-11-30] MEDS: FAMOTIDINE 20 MG TAB PO SCH (22:24)
[2020-11-30] MEDS: HEPARIN SOD 5,000 UNIT/0.5 ML VIAL SQ SCH (22:25)
[2020-12-01] MEDS: methylPREDNISolone 40 MG in SYRINGE 0 ML IV SCH ×4 (00:16→17:46)
[2020-12-01] MEDS: Albuterol HFA 8 GM Inhaler (Combivent Respimat P&T Subs) INH SCH ×4 (00:57→19:22)
[2020-12-01] MEDS: Ipratropium HFA Inhaler (Combivent Respimat P&T Subs) INH SCH ×4 (00:57→19:22)
[2020-12-01] MEDS: PIPERACILLIN/TAZOBACTAM 3.375 GM in DEXTROSE 5% 100 ML IV SCH ×2 (05:11→12:07)
[2020-12-01] MEDS: HEPARIN SOD 5,000 UNIT/0.5 ML VIAL SQ SCH ×3 (05:28→21:32)
[2020-12-01] MEDS ORDERED: LEVOTHYROXINE SODIUM 125 MCG TABLET PO SCH (06:30)
[2020-12-01 07:02] LABS: Hematocrit (blood only) 40.9 % (42-52); Hemoglobin 13.5 g/dL (14.0-18.0); Immature Granulocytes # (auto) 0.02 K/uL (0.00-0.02); Immature Granulocytes % (auto) 1.1 %; Lymphocytes # (auto) 0.51 K/uL (1.2-3.4); Lymphocytes % (auto) 27.7 %; Mean Corpuscular Hemoglobin 27.6 pg (25-34); Mean Corpuscular Volume 83.6 fL (80-100); Mean Platelet Volume 12.3 fL (7.4-10.4); Monocytes # (auto) 0.05 K/uL (0.11-0.59); Monocytes % (auto) 2.7 %; Neutrophils # (auto) 1.26 K/uL (1.4-6.5); Neutrophils % (auto) 68.5 %; Platelet Count 214 K/uL (130-400); RDW Coefficient of Variation 14.6 % (11.5-14.5); Red Blood Count 4.89 M/uL (4.7-6.1); White Blood Count 1.84 K/uL (4.8-10.8)
[2020-12-01 07:30] LABS: BUN Creatinine Ratio 10.3 (10-20); Calcium 9.4 mg/dl (8.5-10.1); Creatinine Clr Calc Pharmacy 82.6 ml/min; Est GFR (African American) 101.2; Est GFR (Non-African American) 87.3; Magnesium 2.2 mg/dl (1.8-2.4); Potassium 4.1 mmol/L (3.5-5.1)
[2020-12-01] MEDS: AZITHROMYCIN 250 MG TAB PO SCH (07:44)
[2020-12-01] MEDS: METOPROLOL SUCC 25MG EXT REL TAB PO SCH (07:44)
[2020-12-01] MEDS: FAMOTIDINE 20 MG TAB PO SCH ×2 (07:44→20:40)
--- NOTE | 2020-12-01 09:56 | Palliative Care Consultation ---
Date of Consultation December 01, 2020 Assessment & Plan (1) Dysphagia: Speech evaluation recommends easy to chew diet with nectar thick liquids. I talked with his daughter about silent aspiration and the fact that the coughing with eating is a sign of aspiration. It is likely that Dilshad will not want to do thickened liquids, however, if comfort were primary goal, it would be reasonable for him to eat what he wants for comfort, knowing the risks associated. (2) Otalgia, left ear: He has oxycodone at home for prn use. Would add gabapentin at for neuropathic pain. This is concerning for cancer recurrence and I discussed this with Dilshad but he feels it is related to his covid infection. (3) Palliative care encounter: Dilshad is clear that he would prefer to be at home and is anxious to go home. We discussed possible complications if he goes home before he is stable for discharge and he understands that he could . He notes that he is comfortable with this. He is clear that he does not want further workup or treatment for his cancer and states that when it is his time to , he is ready for that. I spoke with his daughter, Denita, on the phone. We discussed what Dilshad said and she supports that. We discussed the discrepancy with what he is saying and his code status. She tells me that he has completed an advance directive and has said more than once that he would not want resuscitation. Code status changed to DNR. We discussed hospice care at home as probably the best support for him and their family when he returns home. She would like to discuss further tomorrow after considering and reviewing Speech eval results. (4) Aspiration pneumonia: Aspiration pneumonia type: unspecified Laterality: right Lung location: lower lobe of lung Qualified Code(s): J69.0 - Pneumonitis due to inhalation of food and vomit (5) Pulmonary embolism: Pulmonary embolism type: single subsegmental (without acute cor pulmonale) Qualified Code(s): I26.93 - Single subsegmental pulmonary embolism without acute cor pulmonale (6) COPD exacerbation: (7) Acute respiratory failure with hypoxia: History of Present Illness Reason for Consultation: goals of care Requesting Physician: Daniel Vick Attending Physician: Torito Cunningham DO History of Present Illness 85 yo gentleman with h/o squamous cell carcinoma of the hypopharynx in 2016. He completed chemotherapy and radiation therapy and did well. He did have a tracheostomy initially with treatment and his daughter notes that he has always coughed sometimes with eating and drinking but did not seem to have problems with swallowing. He also had covid in August of 2020 and had been attributing cough and symptoms of otalgia on left side to his viral infection. He was seen by ENT and was recommended for laryngoscopy for further evaluation. Dilshad declined that and has declined further evaluation despite abnormalities on CT that are concerning for disease recurrence. He was admitted with hypoxia and found to have aspiration pneumonia and a small subsegmental RLL PE. He has COPD as well. He is being evaluated by speech therapy today. We have been consulted to assist with goals of care. Today Dilshad is irritable about having to be NPO pending his swallowing evaluation and insistent that he does not have any problems with swallowing. He denies pain or shortness of breath. 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, right piriform sinus,SCC, p16 negative, 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, stage IV (thyroid cartilage invasion) Status post completion of combined radiation and chemotherapy Radiation completed 12/31/2015 received 6996 cGy" On 01/07/16 10:48 Sandra Mckeon wrote "DIAGNOSIS: Hypopharynx, right piriform sinus,SCC, p16 negative, 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, stage IV (thyroid cartilage invasion) Status post completion of combined radiation and chemotherapy Radiation completed 12/31/2015 received 6996 cGy" On 10/27/15 15:29 Elmer Hebert wrote "DIAGNOSIS: Hypopharynx, right piriform sinus,SCC, p16 negative, 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, 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 Surgical History H/O knee surgery History of cataract surgery History of colonoscopy History of left knee surgery History of sinus surgery Biopsy History of skin surgery History of tonsillectomy Status post Mohs surgery Family History Father Cancer Social History Smoking Status: Former smoker Tobacco Type: Cigarettes Second Hand Exposure: No; Hx Alcohol Use: No Hx Substance Use: No Preferred Language: Lithuanian Communication Ability: Effective Greaser Operator Required: No Beliefs That Will Affect Care: None Current Living Situation: Family Current Living Situation Comment: lives with son and daughter Feels Safe at Home: Yes Assistive Devices: Oxygen - Continuous Review of Systems Review of Systems: [place] Symptom Assessment Scale Pain 0/3 Dyspnea 0/3 Nausea 0/3 Anxiety 2/3 Anorexia 2/3 with 20lb weight loss since August Fatigue 2/3 Drowsiness 0/3 Palliative Performance Score 50% Physical Exam Constitutional: no acute distress ENMT: Mouth: + dry oral mucous membranes scarring on right posterior neck allodynia left cheek Respiratory: no labored breathing Gastrointestinal (Abdomen): Inspection/Auscultation: abdomen not distended Musculoskeletal: Extremities: extremities normal to inspection Neurologic: no focal motor deficits Psychiatric: Orientation: alert and oriented x 3 Results & Data ([facility]) Vital Signs (Past 12 Hours) Vital Signs Temp Pulse Resp BP Pulse Ox 12/01/20 07:41 97.3 F L 80 20 144/79 H 94 12/01/20 07:21 75 18 95 12/01/20 00:58 95 H 24 95 11/30/20 23:52 97.5 F L 95 H 16 122/77 95 PG Care Time/CCT Total # of Minutes Spent Total Time Spent with Patient: Total time spent is greater than 50% in coordination of care (as documented) at patient's floor/unit and/or counseling patient: Total time spent 80 minutes with more than 50% of time spent on symptom management, goals of care, code status, family education and support, coordination of care. Coding Level of Care Code 14599 Inpt Consult Level 4 Diagnoses Dysphagia R13.10 Otalgia, left ear H92.02 Palliative care encounter Z51.5 Aspiration pneumonia J69.0 Aspiration pneumonia type: unspecified Laterality: right Lung location: lower lobe of lung Pulmonary embolism I26.93 Pulmonary embolism type: single subsegmental (without acute cor pulmonale) COPD exacerbation J44.1 Acute respiratory failure with hypoxia J96.01
[2020-12-01 10:44] LABS: Appearance Urine Clear (Clear); Bilirubin Urine Negative (Negative); Blood Urine Negative (Negative); Color Urine Yellow; Glucose Urine UA Negative (Negative); Ketones Urine Trace (Negative); Leukocyte Esterase Urine Negative (Negative); Nitrite Urine Negative (Negative); Protein Urine Negative (Negative); Specific Gravity Urine 1.027 (1.000-1.030); Urobilinogen Urine Negative (Negative); pH Urine 5.5 (4.5-7.5)
--- NOTE | 2020-12-01 13:58 | Hospitalist Progress Note ---
Date of Service December 01, 2020 Assessment & Plan (1) Hypoxia: 85 yo M with PMHx of COPD nd Hypopharyngeal cancer s/p chemo and radiation course, admitted for increasing lethargy and hypoxia. Hypoxia - resolved, currently satting 95% on 2L via [place] (baseline oxygen requirement) - Respiratory Biofire neg for COVID 19, influenza, RSV - etiology uncertain: suspect secondary to multifocal PNA vs. acute COPD exacerbation vs. likely extension of malignancy with associated bilateral pleural effusions - supplemental O2 as needed Aspiration PNA - evidence of multifocal PNA on Chest CT scan - afebrile. not tachycardic or tachypneic. WBC not elevated (although patient is chronically lymphopenic). Procal not elevated. CRP 10.6. ESR 56. - speech eval ordered: patient aspirating on thin liquids. [place] thick diet with small bite size diet - deescalate from Zosyn to Unasyn, covers anaerobes COPD exacerbation: - history of COPD, not currently on any inhalers - increase in sputum and cough reported by daughter on admission - continue Atrovent q6, azithromycin. Will discontinue methylprednisone at this time. - supplemental O2 as needed - recommend patient be started on Spiriva at discharge Hypopharyngeal cancer: - completed chemoradiation course in 2016 - follows with Dr. Krueger in ENT for routine surveillance - High suspicion for progression of disease with CT findings, including an enlarging 26 mm right apical groundglass opacity with interval development of mediastinal and hilar lymphadenopathy, as well as a 12 mm exophytic right lobe thyroid nodule - elevated inflammatory markers and acute phase reactants (ESR, CRP, LDH, ferritin) - upon discussion with patient, he is not interested in pursuing a biopsy to prove cancer, nor would ultimately desire to pursue treatment - Palliative care consult appreciated; daughter ultimately feels as though home hospice services would be beneficial, however this decision can be further mulled over Pulmonary embolism: - Subsegmental embolism noted in RLL on chest CTA - lower extremity dopplers negative for acute DVT - anticoagulation prophylactic vs full pending results. - BNP not elevated GERD (gastroesophageal reflux disease): - continue home dose Famotidine Hypothyroidism: - TSH with 58 on admission,normal T4. repeat TSH ordered - patient was started on 125mcg Synthroid on admission - will reduce dose to 25mcg (recommended starting dose in elderly patient; titrate up by weight as needed) DVT ppx: Heparin 5000 units SQ q8h Code: Full, confirmed with patient Diet: [place] thick, soft bite size Dispo: Med/Surg. Arrange home health services for 12/02/20 with anticipated transition to eventual home hospice services Admission and Anticipated Discharge Date Admission Date: November 30, 2020 Supervising Physician Co-Signing Physician Notes Patient seen and examined with PGY-2 Dr. Ryan. Agree with history, exam findings, assessment and plan of care as outlined. In brief, Mr. Frias is an 85 year old male with history of hypopharyngeal cancer with recent concern for recurrence (followed by ENT) admitted for hypoxia and lethargy. Today, he has no complaints. He would like to go home. Expresses a wish to defer any further treatment for a recurrence of cancer. Does wish to receive CPR and be intubated in the event of cardiac arrest. 1. Hypoxia. Resolved now that he is back on his home O2 (2L). Viral panels negative. Likely secondary to aspiration pneumonia and COPD exacerbation. 2. Aspiration pneumonia. De-escalated antibiotics from zosyn to Unasyn. Speech eval did show he is aspiration. Recommending nectar thick liquids with small bite size diet. 3. COPD exacerbation. dameon Busby. Discontinued steroids. Can start Spiriva at discharge. 4. Hypopharyngeal cancer. Possible recurrence. Appreciate palliative input. Not quite ready for home hospice at this point today, but will continue discussions with daughter and patient. 5. PE. Subsegmental in the RLL vs artifact. LE dopplers negative. Given the negative lower extremity dopplers and strong possibility that the area of possible filling defect may be motion artifact, will defer anticoagulation for now. If that changes and suspicion of VTE increases, can start a DOAC. 6. Hypothyroid. TSH 58 with normal T4. Repeat TSH pending. Will reduce synthroid dose to 25mcg. Dispo: anticipate discharge tomorrow with home health services and possible eventual home hospice services. Subjective no acute events overnight. Patient expresses desire to go home. Reiterates that even if lung nodules are cancerous - he would not want to pursue treatment. He says his breathing is at its baseline. Review of Systems Review of Systems: All systems reviewed & are unremarkable except as noted in HPI & below Physical Exam Constitutional: WD/WN, vitals as above cooperative; no acute distress Eyes: + anicteric sclerae ENMT: external ear and nose normal, oropharynx normal Neck: normal visual inspection and trachea midline Respiratory: normal respiratory effort; no respiratory distress and no labored breathing Auscultation: + wheezes (on expiration ); no crackles Cardiovascular: Rate/Rhythm: regular rate and regular rhythm Heart Sounds: normal S1, normal S2 and + murmur (systolic ejection ) Extremities: no pedal edema Gastrointestinal (Abdomen): normal bowel sounds, soft, nontender, no hepatosplenomegaly Skin: no rashes, warm and dry Psychiatric: A+Ox3, euthymic affect Genitourinary: Condom catheter in place, draining yellow urine without visible clots Results & Data Results & Data ([facility]) Vital Signs (Past 12 Hours) Vital Signs Temp Pulse Resp BP Pulse Ox 12/01/20 12:53 68 18 95 12/01/20 07:41 36.3 C L 80 20 144/79 H 94 12/01/20 07:21 75 18 95 Resident Activity Tracking Resident Involvement: Resident Care Provided Care Provided: Adult Hospital Medicine
--- NOTE | 2020-12-01 15:04 | Emergency Department Note ---
History of Present Illness General Chief complaint: Illness Stated complaint: decreased mental status Time Seen by Provider: 11/30/20 12:04 Source: patient, family (daughter), EMS, RN notes reviewed and old records reviewed Mode of arrival: EMS Limitations: altered mental status and physical limitation ([place]) History of Present Illness Provider complaint: AMS, sleepiness, hypoxia Onset (ago): day(s) 3 Associated symptoms: + malaise, + nausea/vomiting, + shortness of breath and + weakness; no diaphoresis Treatments prior to arrival: none This is an 85-year-old male who presents emergency department complaining of falling asleep. The patient is brought in by his daughter who notes that the patient has been hypoxic at home and that he has been generally weak for the past 3 days and not been able to ambulate around the house. The patient himself has no complaints. He denies any chest pain or abdominal pain. He falls back to sleep as soon as the interview is over. 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, right piriform sinus,SCC, p16 negative, 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, stage IV (thyroid cartilage invasion) Status post completion of combined radiation and chemotherapy Radiation completed 12/31/2015 received 6996 cGy" On 01/07/16 10:48 Sandra Mckeon wrote "DIAGNOSIS: Hypopharynx, right piriform sinus,SCC, p16 negative, 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, stage IV (thyroid cartilage invasion) Status post completion of combined radiation and chemotherapy Radiation completed 12/31/2015 received 6996 cGy" On 10/27/15 15:29 Veeral Hebert wrote "DIAGNOSIS: Hypopharynx, right piriform sinus,SCC, p16 negative, 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, 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 Surgical History H/O knee surgery History of cataract surgery History of colonoscopy History of left knee surgery History of sinus surgery Biopsy History of skin surgery History of tonsillectomy Status post Mohs surgery Family History Father Cancer Social History Smoking Status: Former smoker Tobacco Type: Cigarettes Second Hand Exposure: No; Hx Alcohol Use: No Hx Substance Use: No Preferred Language: Turkmen Communication Ability: Effective [facility] Specialist Required: No Beliefs That Will Affect Care: None Current Living Situation: Family Current Living Situation Comment: lives with son and daughter Feels Safe at Home: Yes Assistive Devices: Oxygen - Continuous Review of Systems A total of 10 systems reviewed and were otherwise negative Physical Exam Vital Signs Vital Signs - 24 hr 11/30/20 15:00 11/30/20 15:01 11/30/20 15:10 Pulse Rate 90 91 H 90 Pulse Rate from SpO2 Sensor 90 89 90 Respiratory Rate 21 19 20 Blood Pressure 164/120 H Blood Pressure Mean 134 Pulse Oximetry 96 96 95 11/30/20 15:20 11/30/20 15:30 11/30/20 15:31 Pulse Rate 90 95 H 96 H Pulse Rate from SpO2 Sensor 88 91 H 90 Respiratory Rate 19 24 Blood Pressure 118/90 Blood Pressure Mean 99 Pulse Oximetry 94 97 96 11/30/20 15:40 11/30/20 15:50 11/30/20 16:00 Pulse Rate 90 85 94 H Pulse Rate from SpO2 Sensor 90 85 90 Respiratory Rate Blood Pressure Blood Pressure Mean Pulse Oximetry 96 95 95 11/30/20 16:01 Pulse Rate 88 Pulse Rate from SpO2 Sensor 89 Respiratory Rate Blood Pressure 123/88 Blood Pressure Mean 99 Pulse Oximetry 95 VITAL SIGNS - Vital signs and nursing notes were reviewed. GENERAL - 85-year-old male appearing stated age who is in no acute distress. Communicates well with provider and answers questions appropriately. SKIN - Without rashes. HEAD - NC/AT. EYES - PERRL with EOMI bilaterally. Sclera anicteric. Palpebral conjunctiva pink and moist with no injection noted. EARS - No deformities of external structures noted on gross examination bilaterally. NOSE - Midline and without cyanosis. No epistaxis or purulent drainage noted. Septum midline without deviation or septal hematoma noted. MOUTH/OROPHARYNX - Without perioral cyanosis. Buccal mucosa pink and moist and without leukoplakia. Tongue midline with equal elevation of palate bilaterally. No tonsillar hypertrophy, erythema, or exudates noted. dentition noted. NECK - Neck with FROM. Supple to palpation. lymphadenopathy noted. No nuchal rigidity. LUNGS - Chest wall symmetric without accessory muscle use, intercostals retractions, or central cyanosis. Normal vesicular breath sounds CTA B/L. slight wheezing at bases CARDIAC - RRR with S1/S2. No murmur, rubs, or gallops appreciated. ABDOMEN - Abdominal contour without pulsations or visible masses. BS normoactive all four quadrants. No tenderness, palpable masses, hepatosplenomegaly, or ascites noted. EXTREMITIES - No clubbing or peripheral cyanosis. No pretibial edema present. +3/5 radial, posterior tibial, and dorsalis pedis pulses palpated throughout. +5/5 strength noted in UE/LE bilaterally. NEUROLOGIC - Cranial nerves II through XII grossly intact. Sensory intact to light touch throughout. Patellar reflexes +2/4. PSYCH - A&Ox3 and cooperates fully with examiner. Pt is very pleasant and interacts well with examiner. Course Administered Medications Albuterol (Albuterol Hfa 8 Gm Inhaler (Combivent Respimat P&T Subs)) 1 puffs I NH Q6R [facility] Stop: 12/30/20 18:59 Last Admin: 12/01/20 12:52 Dose: 1 puffs Documented by: [id number] Admin: 12/01/20 07:20 Dose: 1 puffs Documented by: [id number] Admin: 12/01/20 00:57 Dose: 1 puffs Documented by: [id number] Admin: 11/30/20 20:32 Dose: 1 puffs Documented by: [id number] Azithromycin (Azithromycin 250 Mg Tab) 250 mg PO QAM [facility] Stop: 12/04/20 09:01 Last Admin: 12/01/20 07:44 Dose: 250 mg Documented by: [id number] Famotidine (Famotidine 20 Mg Tab) 20 mg PO BID [facility] Stop: 12/30/20 20:59 Last Admin: 12/01/20 07:44 Dose: 20 mg Documented by: [id number] Admin: 11/30/20 22:24 Dose: 20 mg Documented by: [id number] Heparin Sodium (Porcine) (Heparin Sod 5,000 Unit/0.5 Ml Vial) 5,000 units SQ Q8 [facility] Stop: 12/30/20 21:59 Last Admin: 12/01/20 13:48 Dose: 5,000 units Documented by: [id number] Admin: 12/01/20 05:28 Dose: 5,000 units Documented by: [id number] Admin: 11/30/20 22:25 Dose: 5,000 units Documented by: [id number] Methylprednisolone 40 mg/ (Syringe) 0.64 mls @ 1.5 mls/min IV Q6 [facility] Stop: 12/30/20 17:59 Last Admin: 12/01/20 12:07 Dose: 1.5 mls/min Documented by: [id number] Admin: 12/01/20 05:28 Dose: 1.5 mls/min Documented by: [id number] Admin: 12/01/20 00:16 Dose: 1.5 mls/min Documented by: [id number] Admin: 11/30/20 18:47 Dose: 1.5 mls/min Documented by: [id number] Ipratropium [place] (Ipratropium Hfa Inhaler (Combivent Respimat P&T Subs)) 1 puffs INH Q6R [facility] Stop: 12/30/20 18:59 Last Admin: 12/01/20 12:52 Dose: 1 puffs Documented by: [id number] Admin: 12/01/20 07:20 Dose: 1 puffs Documented by: [id number] Admin: 12/01/20 00:57 Dose: 1 puffs Documented by: [id number] Admin: 11/30/20 20:32 Dose: 1 puffs Documented by: [id number] Metoprolol Succinate (Metoprolol Succ 25mg Ext Rel Tab) 25 mg PO QAM [facility] Stop: 12/31/20 08:59 Last Admin: 12/01/20 07:44 Dose: 25 mg Documented by: [id number] Discontinued Medications Azithromycin (Azithromycin 250 Mg Tab) 500 mg PO NOW ONE Stop: 11/30/20 17:51 Last Admin: 11/30/20 18:46 Dose: 500 mg Documented by: [id number] Furosemide (Furosemide 40 Mg/4 Ml Vial) 40 mg IV NOW STA Stop: 11/30/20 12:57 Last Admin: 11/30/20 13:53 Dose: 40 mg Documented by: [id number] Sodium Chloride (Nss 1000ml) 500 mls @ 999 mls/hr IV .Q31M ONE Stop: 11/30/20 12:48 Last Infusion: 11/30/20 12:50 Dose: 0 mls/hr Documented by: [id number] Admin: 11/30/20 12:20 Dose: 999 mls/hr Documented by: [id number] Potassium Chloride (K Gordon / Wtr) 10 meq in 100 mls @ 100 mls/hr IV Q1H JESSIKA Stop: 11/30/20 14:59 Last Infusion: 11/30/20 16:21 Dose: 0 mls/hr Documented by: [id number] Admin: 11/30/20 15:21 Dose: 100 mls/hr Documented by: [id number] Infusion: 11/30/20 14:56 Dose: 0 mls/hr Documented by: [id number] Admin: 11/30/20 13:53 Dose: 100 mls/hr Documented by: [id number] Piperacillin Sod/Tazobactam Sod (Zosyn) 4.5 gm in 120 mls @ 240 mls/hr IV NOW ONE Stop: 11/30/20 14:56 Last Infusion: 11/30/20 16:01 Dose: 0 mls/hr Documented by: [id number] Admin: 11/30/20 15:23 Dose: 240 mls/hr Documented by: [id number] Levofloxacin/Dextrose (Levaquin/D5w) 750 mg in 150 mls @ 100 mls/hr IV NOW STA Stop: 11/30/20 15:56 Last Infusion: 11/30/20 17:31 Dose: 0 mls/hr Documented by: [id number] Admin: 11/30/20 16:01 Dose: 100 mls/hr Documented by: [id number] Piperacillin Sod/Tazobactam (Sod 3.375 gm/ Dextrose) 115 mls @ 28.75 mls/hr IV Q8H JESSIKA; Protocol Stop: 12/07/20 19:59 Last Admin: 12/01/20 12:07 Dose: 28.8 mls/hr Documented by: [id number] Infusion: 12/01/20 09:11 Dose: 0 mls/hr Documented by: [id number] Admin: 12/01/20 05:11 Dose: 28.8 mls/hr Documented by: [id number] Infusion: 12/01/20 00:17 Dose: 0 mls/hr Documented by: [id number] Admin: 11/30/20 19:36 Dose: 28.8 mls/hr Documented by: [id number] Ioversol (Optiray 320 125ml) 120 ml IV ONCE ONE Stop: 11/30/20 13:14 Last Admin: 11/30/20 13:13 Dose: 120 ml Documented by: [id number] Levothyroxine Sodium (Levothyroxine Sodium 125 Mcg Tablet) 125 mcg PO DAILYBB JESSIKA Stop: 12/31/20 06:29 Last Admin: 12/01/20 05:30 Dose: 125 mcg Documented by: [id number] Levothyroxine Sodium (Levothyroxine Sodium 125 Mcg Tablet) 125 mcg PO ONCE ONE Stop: 11/30/20 16:22 Last Admin: 11/30/20 17:01 Dose: 125 mcg Documented by: [id number] Potassium Chloride (Potassium Chloride Crtab 20 Meq Tabcr) 40 meq PO NOW STA Stop: 11/30/20 12:55 Last Admin: 11/30/20 13:53 Dose: 40 meq Documented by: [id number] Potassium Chloride (Potassium Chloride 20 Meq/15 Ml Udc) 20 meq PO ONCE ONE Stop: 11/30/20 21:01 Last Admin: 11/30/20 22:24 Dose: 20 meq Documented by: [id number] Medical Decision Making Differential Diagnosis Reactive airway disease, pneumonia, pneumothorax, COPD, CHF, infections, cardiac ischemia, pulmonary embolism, musculoskeletal, gastrointestinal, as well as other pathologies. Medical Records Attestation: I reviewed the patient's medical records. Home Medications Current Medication List: was personally reviewed by me Laboratory Data Result diagrams: 12/01/20 06:31 12/01/20 06:31 Lab Results 11/30/20 11/30/20 11/30/20 Range/Units 11:39 11:39 11:39 WBC 5.96 (4.8-10.8) K/uL RBC 4.90 (4.7-6.1) M/uL Hgb 13.7 L (14.0-18.0) g/dL Hct 41.4 L (42-52) % MCV 84.5 (80-100) fL MCH 28.0 (25-34) pg MCHC 33.1 (32-36) g/dL RDW Std Deviation 45.2 (36.4-46.3) fL RDW Coeff of Mikhail 14.6 H (11.5-14.5) % Plt Count 197 (130-400) K/uL MPV 12.0 H (7.4-10.4) fL Immature Gran % (Auto) 1.2 % Neut % (Auto) 69.1 % Lymph % (Auto) 12.2 % Finney % (Auto) 17.3 % Eos % (Auto) 0.0 % Baso % (Auto) 0.2 % Neut # (Auto) 4.12 (1.4-6.5) K/uL Lymph # (Auto) 0.73 L (1.2-3.4) K/uL Finney # (Auto) 1.03 H (0.11-0.59) K/uL Eos # (Auto) 0.00 (0-0.5) K/uL Baso # (Auto) 0.01 (0-0.2) K/uL Immature Gran # (Auto) 0.07 H (0.00-0.02) K/uL ESR (0-14) mm/hr VBG pH (7.36-7.41) VBG pCO2 (38-50) mmHg VBG pO2 mmHg VBG HCO3 mmol/L VBG O2 Saturation % VBG Base Excess mEq/L Barometric Pressure mm/Hg Sodium 134 L (136-145) mmol/L Potassium 3.1 L (3.5-5.1) mmol/L Chloride 100 (98-107) mmol/L Carbon Dioxide 25 (21-32) mmol/L Anion Gap 9.0 (3-11) BUN 8 (7-18) mg/dl Creatinine 0.88 (0.6-1.4) mg/dl Est Cr Clr Drug Dosing 75.2 ml/min Est GFR ( Amer) 92.1 Est GFR (Non-Af Amer) 79.4 BUN/Creatinine Ratio 8.5 L (10-20) Glucose 117 H (70-99) mg/dl Calcium 8.6 (8.5-10.1) mg/dl Ferritin (8-388) ng/ml Total Bilirubin 0.9 (0.2-1) mg/dl AST 18 (15-37) U/L ALT 21 (12-78) U/L Alkaline Phosphatase 63 (45-117) U/L Lactate Dehydrogenase (87-241) U/L Total Creatine Kinase 43 (39-308) U/L CK-MB (CK-2) < 1.0 (0.5-3.6) ng/ml CK/CKMB % Calc TNP Troponin I < 0.015 (0-0.045) ng/ml C-Reactive Protein (0-0.29) mg/dl NT-Pro-B Natriuret Pep 137 (0-1800) pg/ml Total Protein 7.7 (6.4-8.2) gm/dl Albumin 3.1 L (3.4-5.0) gm/dl Globulin 4.6 H (2.5-4.0) gm/dl Albumin/Globulin Ratio 0.7 L (0.9-2) Procalcitonin (0-0.5) ng/ml TSH 58.600 H (0.300-4.500) uIu/ml Free T4 0.87 (0.8-1.6) ng/dl Random Cortisol mcg/dl COVID-19 Eval Order SARS-CoV-2, RNA, NAAT (NEGATIVE) 11/30/20 11/30/20 11/30/20 Range/Units 11:39 11:39 11:39 WBC (4.8-10.8) K/uL RBC (4.7-6.1) M/uL Hgb (14.0-18.0) g/dL Hct (42-52) % MCV (80-100) fL MCH (25-34) pg MCHC (32-36) g/dL RDW Std Deviation (36.4-46.3) fL RDW Coeff of Mikhail (11.5-14.5) % Plt Count (130-400) K/uL MPV (7.4-10.4) fL Immature Gran % (Auto) % Neut % (Auto) % Lymph % (Auto) % Finney % (Auto) % Eos % (Auto) % Baso % (Auto) % Neut # (Auto) (1.4-6.5) K/uL Lymph # (Auto) (1.2-3.4) K/uL Finney # (Auto) (0.11-0.59) K/uL Eos # (Auto) (0-0.5) K/uL Baso # (Auto) (0-0.2) K/uL Immature Gran # (Auto) (0.00-0.02) K/uL ESR 56 H (0-14) mm/hr VBG pH (7.36-7.41) VBG pCO2 (38-50) mmHg VBG pO2 mmHg VBG HCO3 mmol/L VBG O2 Saturation % VBG Base Excess mEq/L Barometric Pressure mm/Hg Sodium (136-145) mmol/L Potassium (3.5-5.1) mmol/L Chloride (98-107) mmol/L Carbon Dioxide (21-32) mmol/L Anion Gap (3-11) BUN (7-18) mg/dl Creatinine (0.6-1.4) mg/dl Est Cr Clr Drug Dosing ml/min Est GFR ( Amer) Est GFR (Non-Af Amer) BUN/Creatinine Ratio (10-20) Glucose (70-99) mg/dl Calcium (8.5-10.1) mg/dl Ferritin 444.7 H (8-388) ng/ml Total Bilirubin (0.2-1) mg/dl AST (15-37) U/L ALT (12-78) U/L Alkaline Phosphatase (45-117) U/L Lactate Dehydrogenase 443 H (87-241) U/L Total Creatine Kinase (39-308) U/L CK-MB (CK-2) (0.5-3.6) ng/ml CK/CKMB % Calc Troponin I (0-0.045) ng/ml C-Reactive Protein 10.60 H (0-0.29) mg/dl NT-Pro-B Natriuret Pep (0-1800) pg/ml Total Protein (6.4-8.2) gm/dl Albumin (3.4-5.0) gm/dl Globulin (2.5-4.0) gm/dl Albumin/Globulin Ratio (0.9-2) Procalcitonin (0-0.5) ng/ml TSH (0.300-4.500) uIu/ml Free T4 (0.8-1.6) ng/dl Random Cortisol mcg/dl COVID-19 Eval Order SARS-CoV-2, RNA, NAAT (NEGATIVE) 11/30/20 11/30/20 11/30/20 Range/Units 12:28 12:28 14:42 WBC (4.8-10.8) K/uL RBC (4.7-6.1) M/uL Hgb (14.0-18.0) g/dL Hct (42-52) % MCV (80-100) fL MCH (25-34) pg MCHC (32-36) g/dL RDW Std Deviation (36.4-46.3) fL RDW Coeff of Mikhail (11.5-14.5) % Plt Count (130-400) K/uL MPV (7.4-10.4) fL Immature Gran % (Auto) % Neut % (Auto) % Lymph % (Auto) % Finney % (Auto) % Eos % (Auto) % Baso % (Auto) % Neut # (Auto) (1.4-6.5) K/uL Lymph # (Auto) (1.2-3.4) K/uL Finney # (Auto) (0.11-0.59) K/uL Eos # (Auto) (0-0.5) K/uL Baso # (Auto) (0-0.2) K/uL Immature Gran # (Auto) (0.00-0.02) K/uL ESR (0-14) mm/hr VBG pH 7.36 (7.36-7.41) VBG pCO2 47 (38-50) mmHg VBG pO2 22 mmHg VBG HCO3 26 mmol/L VBG O2 Saturation < 60.0 % VBG Base Excess 0 mEq/L Barometric Pressure 723.6 mm/Hg Sodium (136-145) mmol/L Potassium (3.5-5.1) mmol/L Chloride (98-107) mmol/L Carbon Dioxide (21-32) mmol/L Anion Gap (3-11) BUN (7-18) mg/dl Creatinine (0.6-1.4) mg/dl Est Cr Clr Drug Dosing ml/min Est GFR ( Amer) Est GFR (Non-Af Amer) BUN/Creatinine Ratio (10-20) Glucose (70-99) mg/dl Calcium (8.5-10.1) mg/dl Ferritin (8-388) ng/ml Total Bilirubin (0.2-1) mg/dl AST (15-37) U/L ALT (12-78) U/L Alkaline Phosphatase (45-117) U/L Lactate Dehydrogenase (87-241) U/L Total Creatine Kinase (39-308) U/L CK-MB (CK-2) (0.5-3.6) ng/ml CK/CKMB % Calc Troponin I (0-0.045) ng/ml C-Reactive Protein (0-0.29) mg/dl NT-Pro-B Natriuret Pep (0-1800) pg/ml Total Protein (6.4-8.2) gm/dl Albumin (3.4-5.0) gm/dl Globulin (2.5-4.0) gm/dl Albumin/Globulin Ratio (0.9-2) Procalcitonin (0-0.5) ng/ml TSH (0.300-4.500) uIu/ml Free T4 (0.8-1.6) ng/dl Random Cortisol mcg/dl COVID-19 Eval Order Covid19 IDNow atMPAC SARS-CoV-2, RNA, NAAT NEGATIVE (NEGATIVE) 11/30/20 11/30/20 Range/Units 15:16 15:16 WBC (4.8-10.8) K/uL RBC (4.7-6.1) M/uL Hgb (14.0-18.0) g/dL Hct (42-52) % MCV (80-100) fL MCH (25-34) pg MCHC (32-36) g/dL RDW Std Deviation (36.4-46.3) fL RDW Coeff of Mikhail (11.5-14.5) % Plt Count (130-400) K/uL MPV (7.4-10.4) fL Immature Gran % (Auto) % Neut % (Auto) % Lymph % (Auto) % Finney % (Auto) % Eos % (Auto) % Baso % (Auto) % Neut # (Auto) (1.4-6.5) K/uL Lymph # (Auto) (1.2-3.4) K/uL [place]ney # (Auto) (0.11-0.59) K/uL Eos # (Auto) (0-0.5) K/uL Baso # (Auto) (0-0.2) K/uL Immature Gran # (Auto) (0.00-0.02) K/uL ESR (0-14) mm/hr VBG pH (7.36-7.41) VBG pCO2 (38-50) mmHg VBG pO2 mmHg VBG HCO3 mmol/L VBG O2 Saturation % VBG Base Excess mEq/L Barometric Pressure mm/Hg Sodium (136-145) mmol/L Potassium (3.5-5.1) mmol/L Chloride (98-107) mmol/L Carbon Dioxide (21-32) mmol/L Anion Gap (3-11) BUN (7-18) mg/dl Creatinine (0.6-1.4) mg/dl Est Cr Clr Drug Dosing ml/min Est GFR ( Amer) Est GFR (Non-Af Amer) BUN/Creatinine Ratio (10-20) Glucose (70-99) mg/dl Calcium (8.5-10.1) mg/dl Ferritin (8-388) ng/ml Total Bilirubin (0.2-1) mg/dl AST (15-37) U/L ALT (12-78) U/L Alkaline Phosphatase (45-117) U/L Lactate Dehydrogenase (87-241) U/L Total Creatine Kinase (39-308) U/L CK-MB (CK-2) (0.5-3.6) ng/ml CK/CKMB % Calc Troponin I (0-0.045) ng/ml C-Reactive Protein (0-0.29) mg/dl NT-Pro-B Natriuret Pep (0-1800) pg/ml Total Protein (6.4-8.2) gm/dl Albumin (3.4-5.0) gm/dl Globulin (2.5-4.0) gm/dl Albumin/Globulin Ratio (0.9-2) Procalcitonin < 0.05 (0-0.5) ng/ml TSH (0.300-4.500) uIu/ml Free T4 (0.8-1.6) ng/dl Random Cortisol 14.36 mcg/dl COVID-19 Eval Order SARS-CoV-2, RNA, NAAT (NEGATIVE) Imaging Data Radiologist's Impression: [facility], [phone] XRay Report Patient: OLY HOLLY CAdmit Date: 11/30/20MR#: [id number]: 135 [address] CTAcct ID:[id number]: Date: 1935City Zip: [place] [id number]: 85Location: EDSex: MRoom/Bed:Att Phy:Diagnosis: decreased mental statusPri Phy: Harry Rodriguez III, MDService Date: 11/30/20Fam Phy:Interpreting Phy: Gil Zaidi MDAdmit Phy: Ordering Phy: Justyn Iraheta MD cc: ~ SINGLE VIEW CHEST CLINICAL HISTORY: Generalized weakness. FINDINGS: An AP, portable, upright chest radiograph is compared to study dated 10/06/2020 and correlated with chest CT dated 03/23/2017. The examination is degraded by portable technique and patient rotation. The heart is enlarged. There is pulmonary vascular congestion. There are small pleural effusions with bibasilar atelectasis. Perihilar airspace opacities likely represent interstitial edema. No pneumothorax is seen. The skeletal structures are osteopenic. The bony thorax is grossly intact. IMPRESSION: 1. Cardiomegaly with evidence of congestive failure. 2. Perihilar opacities likely represent interstitial edema. Correlate clinically for evidence of a superimposed infectious/inflammatory pneumonitis. 3. Small pleural effusions. ACT 112: Negative or not required by law. Electronically signed by: Gil Zaidi M.D. 11/30/2020 12:53 PM Dictated: 11/30/20 1252Transcribed: 11/30/20 1252 [facility], [phone] CT Scan Report Patient: OLY HOLLY CAdmit Date: 11/30/20MR#: [id number]: [address]Ac[address] ID:[id number]: Date: 1935 Zip: [place] [id number]: 85Location: EDSex: MRoom/Bed:Att Phy:Diagnosis: decreased mental statusPri Phy: Harry Rodriguez, III, MDService Date: 11/30/20Fam Phy:Interpreting Phy: Carlos A Martinez MDAdmit Phy: Ordering Phy: Justyn Iraheta MD cc: ~ HEAD CT NONCONTRAST CT DOSE: 729.78 mGycm HISTORY: Altered mental status. TECHNIQUE: Multiaxial CT images of the head were performed without the use of intravenous contrast. Automated exposure control was utilized for this study. A dose lowering technique was utilized adhering to the principles of ALARA. Comparison: Head CT 10/06/2020. Findings: No change in the bilateral mastoid effusions, right greater than left. The calvarium and skull base are intact. There is no mass, hematoma, midline shift, acute infarct. White matter hypodensity is nonspecific but suggestive of microvascular ischemic change. The ventricles and sulci demonstrate mild age- related involutional changes. Impression: No significant change compared to the prior study. No acute intracranial abnormality. ACT 112: Negative or not required by law. Electronically signed by: Carlos A Martinez M.D. 11/30/2020 1:27 PM Dictated: 11/30/20 1323Transcribed: 11/30/20 1323 [facility], [phone] CT Scan Report Patient: OLY HOLLY Date: 11/30/20#: [id number]: [address] CTAcct ID:[id number]: Date: 1935 Zip: [place] [id number]: 85Location: EDSex: MRoom/Bed:Att Phy:Diagnosis: decreased mental statusPri Phy: Harry Rodriguez, III, MDService Date: 11/30/20Fam Phy:Interpreting Phy: Iban Kunz MDAdmit Phy: Ordering Phy: Justyn Iraheta MD cc: ~ CT ANGIOGRAM OF THE CHEST CLINICAL HISTORY: Atypical chest pain. Possible acute pulmonary embolism. History of head and neck carcinoma. COMPARISON STUDY: 03/23/2017 TECHNIQUE: Following the IV administration of 120 mL of Optiray-320, CT angiogram of the thorax was performed from the thoracic inlet to the lung bases utilizing the pulmonary embolus protocol. Images are reviewed in the axial, sagittal, and coronal planes. IV contrast was administered without complication. MIP imaging was performed. A dose lowering technique was utilized adhering to the principles of ALARA. CT DOSE: 540.63 mGycm FINDINGS: Within the visualized portions the neck, there is nonspecific right piriform sinus asymmetry. There is a 12 mm exophytic right-sided thyroid nodule There is mild mediastinal andr hilar lymphadenopathy. There was no evidence of thoracic aortic dilatation. No central emboli are visualized. Evaluation of peripheral artery branches is limited due to respiratory motion artifact. There is a small subsegmental right lower lobe embolus versus artifact. There is a small right pleural effusion and trace left pleural effusion There is an enlarging 26 mm groundglass right apical opacity. There are subtle peripheral groundglass opacities within the left upper lobe and right upper lobe. There are groundglass opacities within the right lower lobe. The findings are suspicious for a multifocal pneumonia. A two-month follow-up CT scan subsequent to treatment is recommended in follow-up. IMPRESSION: 1. Motion compromised study 2. Small subsegmental right lower lobe pulmonary embolism versus motion artifact. Correlation with leg ultrasonography might be considered in follow-up. 3. No central emboli identified 4. Small right pleural effusion and trace left pleural effusion 5. Bilateral groundglass pulmonary opacities suspicious for a multifocal pneumonia 6. Enlarging 26 mm right apical groundglass opacity. A low-grade neoplasm cannot be excluded 7. Interval development of mediastinal and hilar lymphadenopathy statistically reactive 8. A two-month follow-up CT scan subsequent treatment is recommended in follow- up 9. 12 mm exophytic right lobe thyroid nodule. Nonspecific asymmetry in the region of the right piriform sinus ACT 112: Positive. There are findings on this exam that require communication between the performing entity and the patient following Patient Test Result Information Act ([place] Act 112) guidelines. Electronically signed by: Iban Kunz M.D. 11/30/2020 1:47 PM Dictated: 11/30/207Transcribed: 11/30/207 [facility], [id number] Ultrasound Report Patient: OLY HOLLY Date: 11/30/20MR#: [id number]: Holly [place] CTAcct ID:[id number]: Date: 1935[facility] Zip: [place], [place] [address]Rpt: 83Location: EDSex: MRoom/Bed:Att Phy:Diagnosis: decr eased mental statusPri Phy: Harry Rodriguez, III, MDService Date: 11/30/20Fam Phy:Interpreting Phy: Carlos A Martinez MDAdmit Phy: Ordering Phy: Justyn Iraheta MD cc: ~ BILATERAL LOWER EXTREMITY VENOUS DOPPLER HISTORY: Possible pulmonary embolus. Evaluate for DVT. COMPARISON STUDY: None. FINDINGS: There is normal compressibility, flow, and augmentation within the bilateral lower extremity deep venous systems. IMPRESSION: No DVT within the right or left lower extremity. ACT 112: Negative or not required by law. Electronically signed by: Carlos A Martinez M.D. 11/30/2020 4:44 PM Dictated: 11/30/201643Transcribed: 11/30/201643 ECG Data Attestation: I personally reviewed and interpreted this ECG as follows: Indication: + SOB/dyspnea Rate (beats per minute): 100 Rhythm: + normal sinus ECG Intervals/blocks: + Normal QT-c (461) ECG Shedd: + Normal ECG ST segments: no ST depression and no ST elevation Comparison ECG Date: from (10/06/2020) Change: no significant change MDM Narrative Patient was seen and evaluated as above in room C3. Review was performed of nursing notes and vital signs. I did review pertinent previous visits and patient history. After obtaining a thorough history and physical examination the above work up was performed. This is an 85-year-old male who presents the emergency department complaining of shortness of breath. The patient is hypoxic and easily falls back to sleep on my physical examination. He has a decrease in his white blood cell count as well as his hemoglobin. He was given breathing treatments here in the emergency department. His chest x-ray was originally concerning for congestive heart failure therefore he was started on Lasix however the patient's BNP is not elevated CAT scan of the chest is more consistent with multifocal pneumonia. Based on this he was started on broad-spectrum antibiotics. I did discuss the case with the hospitalist service. The patient's Covid test is negative. Patient's daughter is in agreement with the treatment plan. An order was placed for continuous cardiac monitoring. The monitor shows a rate of 68 with Normal SInus rhythm. I attest that I have personally reviewed the patient medication list. The patient was evaluated during a period of high volume and high acuity while the hospital was at overcapacity during the global COVID-19 pandemic, and that diagnosis was suspected/considered upon their initial presentation. Their evaluation, treatment and testing was consistent with current guidelines for patients who present with complaints or symptoms that may be related to COVID- 19. Impression & Plan Hypoxia, Pulmonary embolism, Pneumonia Discharge Plan Visit Data Chief Complaint: Illness Stated Complaint: decreased mental status ED Provider: Justyn Iraheta Discharge Problem: Hypoxia, Pulmonary embolism, Pneumonia Patient Disposition: Admitted As Inpatient Discharge Instructions Interventions: ED Discharge Assessment Last Done: 11/30/20 17:29 Discharge Problem: Pulmonary embolism Qualifiers: Pulmonary embolism type: unspecified Chronicity: unspecified Acute cor pulmonale presence: unspecified Qualified Code(s): I26.99 - Other pulmonary embolism without acute cor pulmonale Pneumonia Qualifiers: Pneumonia type: due to unspecified organism Laterality: unspecified laterality Lung location: unspecified part of lung Qualified Code(s): J18.9 - Pneumonia, unspecified organism
[2020-12-01] MEDS ORDERED: MELATONIN 3 MG TAB PO PRN (17:23)
[2020-12-01] MEDS ORDERED: ONDANSETRON INJ 2 MG/ML 2 ML VIAL IV PRN (17:24)
[2020-12-01] MEDS: AMPICILLIN/SULBACTAM SOD 1,500 MG in 0.9 % SODIUM CHLORIDE 100 ML IV SCH (20:04)
[2020-12-02] MEDS: methylPREDNISolone 40 MG in SYRINGE 0 ML IV SCH ×2 (00:19→06:23)
[2020-12-02] MEDS: Albuterol HFA 8 GM Inhaler (Combivent Respimat P&T Subs) INH SCH ×2 (00:30→07:18)
[2020-12-02] MEDS: Ipratropium HFA Inhaler (Combivent Respimat P&T Subs) INH SCH ×2 (00:30→07:18)
[2020-12-02] MEDS: AMPICILLIN/SULBACTAM SOD 1,500 MG in 0.9 % SODIUM CHLORIDE 100 ML IV SCH ×2 (01:36→07:49)
[2020-12-02] MEDS: HEPARIN SOD 5,000 UNIT/0.5 ML VIAL SQ SCH (06:22)
[2020-12-02] MEDS ORDERED: LEVOTHYROXINE SODIUM 25 MCG TABLET PO SCH (06:30)
[2020-12-02] MEDS: AZITHROMYCIN 250 MG TAB PO SCH (07:42)
[2020-12-02] MEDS: FAMOTIDINE 20 MG TAB PO SCH (07:42)
[2020-12-02] MEDS: METOPROLOL SUCC 25MG EXT REL TAB PO SCH (07:42)
[2020-12-02 07:44] VITALS: BP 139/72; PULSE 76; TEMP 97.5; O2SAT 91
[2020-12-02 07:45] LABS: Hematocrit (blood only) 40.1 % (42-52); Hemoglobin 13.2 g/dL (14.0-18.0); Immature Granulocytes # (auto) 0.05 K/uL (0.00-0.02); Immature Granulocytes % (auto) 0.4 %; Lymphocytes # (auto) 0.61 K/uL (1.2-3.4); Lymphocytes % (auto) 5.4 %; Mean Corpuscular Hemoglobin 27.4 pg (25-34); Mean Corpuscular Hgb Conc 32.9 g/dL (32-36); Mean Corpuscular Volume 83.2 fL (80-100); Mean Platelet Volume 11.7 fL (7.4-10.4); Monocytes # (auto) 0.41 K/uL (0.11-0.59); Monocytes % (auto) 3.6 %; Neutrophils # (auto) 10.25 K/uL (1.4-6.5); Neutrophils % (auto) 90.6 %; Platelet Count 249 K/uL (130-400); RDW Coefficient of Variation 14.7 % (11.5-14.5); Red Blood Count 4.82 M/uL (4.7-6.1); White Blood Count 11.32 K/uL (4.8-10.8)
[2020-12-02 08:18] LABS: BUN Creatinine Ratio 17.7 (10-20); Calcium 9.6 mg/dl (8.5-10.1); Creatinine Clr Calc Pharmacy 73.2 ml/min; Est GFR (African American) 96.2; Magnesium 2.4 mg/dl (1.8-2.4); Potassium 3.6 mmol/L (3.5-5.1)
[2020-12-02 08:29] LABS: Thyroid Stimulating Hormone 19.1 uIu/ml (0.300-4.500)
[2020-12-02 08:42] LABS: T4 Free Thyroxine 1.08 ng/dl (0.8-1.6)
--- NOTE | 2020-12-02 08:48 | Discharge Summary ---
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 Most of the history and physical gained from the daughter who the patient lives with secondary to the patient's hearing difficulty. The patient was reportedly doing well following his chemo and radiation until August 2020, where he was diagnosed with COVID and was admitted to the hospital for hypoxia. Since then, he has not totally recovered. He is more somnolent at home and continues to be short of breath ambulating around the house, can go up about 6-7 stairs before he has to take a break, and gets easily fatigued and short of breath while eating. He does have oxygen at home that he refuses to wear "he doesn't need it". He is able to sleep flat with no orthopnea or dyspnea. He has had some concerns for aspiration and choking while eating per chart review and per the daughter. He spends the majority of his day sitting and sleeping in the chair. He was brought to the hospital today for increase somnolence and shortness of breath. He was noted to be hypoxic on room air at 85% and was placed on 2l NC with appropriate increase to 94-97%. He had a CT scan performed in the emergency room, got IV Lasix 20mg, and was started on broad spectrum antibiotics. The patient has recently been followed up with ENT given patient's history and persistent otalgia with unexplained weight loss, normal ear exam and reassuring left audiometric assessment, that it was concerning to Dr. Krueger for recurrence of malignancy. He performed a laryngoscopy in the office and was limited by thick secretions. He recommended a direct laryngoscopy with possible biopsy in the operating room for further evaluation, and the patient refused. I have also discussed with the patient regarding his lymphnodes in his chest and lung, and again the patient does not want any biopsy or work up "if it is something, then it is what it is and I don't want treated for it." The daughter was present for the entire examination and is in ok with her father's choice as well. Patient had a brain MRI in October that did not show any metastic disease. The patient will be admitted for work up of pulmonary disease, CT scan findings, antibiotics, and PT/OT. Admission Exam Per Admitting Provider General: awake, alert, no apparent distress Head: Normocephalic, atraumatic ENT: PERRL, EOMI, no pharyngeal exudate, mucous membranes moist, bilateral difficulty hearing Neuro: AAO x 3, speech clear and appropriate, strength intact bilaterally 5/5, sensation intact and equal all extremities and no pronator drift, no ataxia Chest: equal rise and fall of the chest, no accessory muscle use, no heaves or thirlls, scattered rhonchi through out, inspiratory wheeze on right, decreased bilaterally in bases Rt>LT, on 2l nc Cardiac: Regular rate and rhythm, telemetry reviewed, skin warm dry, cap refill <3 seconds, peripheral pulses +2 no JVD, no murmur, (+1) edema to bilateral feet to the ankle. GI: NABS x 4 quadrants, soft, nontender to palpation, no rebound, guarding or tenderness : Spontaneously voiding into condom cath, no pain, no CVA tenderness, Extremities: Normal inspection, no peripheral edema or erythema, calfs nontender to palpation Psych: Normal mood and affect Skin: no rash or erythema Principal Diagnosis Aspiration Pneumonia Discharge Exam Constitutional WD/WN, vitals as above cooperative; no acute distress Eyes + anicteric sclerae ENMT external ear and nose normal, oropharynx normal Neck normal visual inspection and trachea midline Thyroid: no thyroid nodules Respiratory normal respiratory effort; no respiratory distress and no labored breathing Auscultation: no crackles Cardiovascular Rate/Rhythm: regular rate and regular rhythm Heart Sounds: normal S1, normal S2 and + murmur (systolic ejection ) Extremities: no pedal edema Gastrointestinal (Abdomen) normal bowel sounds, soft, nontender, no hepatosplenomegaly Skin no rashes, warm and dry Psychiatric A+Ox3, euthymic affect Discharge Data Allergies Allergy/AdvReac Type Severity Reaction Status Date / Time No Known Drug Allergies Allergy Unknown Verified 11/30/20 12:15 Consultations 11/30/20 14:33 ED Decision to Admit Stat 11/30/20 18:16 Consult Palliative Care Routine Ordered Studies 11/30/20 12:16 CT head/brain wo con Stat 11/30/20 12:58 CT angio chest PE protocol Stat 11/30/20 14:35 US venous doppler [facility] Stat Hospital Course (1) Hypoxia: 85 yo M with PMHx of COPD nd Hypopharyngeal cancer s/p chemo and radiation course, admitted for increasing lethargy and hypoxia. Hypoxia - resolved by the time of discharge, currently satting > 90% on baseline oxygen requirement (2L via NC) - Respiratory Biofire neg for COVID 19, influenza, RSV - etiology uncertain: suspect secondary to multifocal PNA vs. acute COPD exacerbation vs. likely extension of malignancy with associated bilateral pleural effusions Aspiration PNA - evidence of multifocal PNA on Chest CT scan - afebrile. not tachycardic or tachypneic. SBC only mildly elevated to 11. Procal not elevated. CRP 10.6. ESR 56. - speech eval ordered: patient aspirating on thin liquids. [place] thick diet with small bite size diet. Results were discussed with patient's daughter - she is aware that if he does not adhere to this texture, he will likely continue to aspirate and get recurrent pneumonias. - Patient was treated with Unasyn while inpatient. Recommend completion of 7 day course with Augmentin. COPD exacerbation: - unclear if patient has a history of COPD, not currently on any inhalers - increase in sputum and cough reported by daughter on admission - Treated with Methylprednisolone, Albuterol/Ipratropium inhaler, and Azithromycin. Recommend completion of 3 day course of Azithromycin. Outpatient items to do: recommend patient be started on an anticholinergic or Spiriva if he does have this underlying diagnosis Hypopharyngeal cancer: - completed chemoradiation course in 2016 - follows with Dr. Krueger in ENT for routine surveillance - High suspicion for progression of disease with CT findings, including an enlarging 26 mm right apical groundglass opacity with interval development of mediastinal and hilar lymphadenopathy, as well as a 12 mm exophytic right lobe thyroid nodule - elevated inflammatory markers and acute phase reactants (ESR, CRP, LDH, ferritin) - upon discussion with patient, he is not interested in pursuing a biopsy to prove cancer, nor would ultimately desire to pursue treatment - Palliative care consult appreciated; daughter ultimately feels as though home hospice services would be beneficial, however this decision can be further mulled over Outpatient items to do: follow up on palliative care discussion - arrange home hospice services if family desires Questionable Pulmonary embolism: - Subsegmental consolidation noted in RLL on chest CTA, thought to represent possible PE vs. motion artifact. - lower extremity dopplers negative for acute DVT. Lesion felt to likely be motion artifact > PE. - Given patient's overall stated preference of not pursuing extensive care, would not recommend anticoagulation at this time GERD (gastroesophageal reflux disease): - continue home dose Famotidine Hypothyroidism: - TSH with 58 on admission, normal T4. repeat TSH 11. - patient was started on 25mcg Synthroid on admission Outpatient items to do: recommend repeating TSH, as it may have been elevated in acute infectious setting Total Time Total Time Spent Total Time Spent (In Minutes): see attending attestation Discharge Plan Discharge Items Patient Disposition: Home - Home Health Services Reason For Visit: HYPOXIA Discharge Diagnosis: Pneumonia Activity: Resume your previous activity Non-emergency contact: Primary Care Provider Call non-emergency contact if: you have any medication questions Follow-up/Referrals: Harry Rodriguez III, MD [Primary Care Provider] - 12/09/20 10:30 am (APPT WITH AYLEEN CANDELARIA) Diet: Regular Diet Texture: Easy to Chew Liquid Consistency: [place] thick Addtl Attending Provider Instructions: You were admitted to [facility] for evaluation of worsening cough, sputum production and lethargy. A cat scan of your chest was obtained, which showed evidence of a multifocal pneumonia. You were treated with antibiotics and improved while under our care. Please continue to take: Azithromycin 250mg, daily for 1 more day. Please continue to take Augmentin 875mg, twice daily for an additional 5 days. We provided you with an albuterol inhaler to use on an as needed basis for shortness of breath. You may use up to 1 puff every 4 hours. The cause of your pneumonia was likely from an aspiration event - aspiration occurs when oral contents (food, liquid, or saliva) goes down your windpipe and into the lung tissue instead of into the esophagus and stomach. Typically, this results in an infection in the lung (pneumonia). Speech therapy evaluated you while you were in the hospital and found that you were aspirating thin liquids (like water and juice) but you did better with [place] thick liquids and soft bite sized pieces of food. If you choose to drink thin liquids, you run the risk of further aspiration, which will likely lead to recurrent pneumonia. The cat scan of your chest also showed an enlarging opacity in the right lung, swollen lymph nodes in the chest, as well as a mass on the right side of the thyroid gland. Collectively, these findings are concerning for extension of your previous cancer. In order to prove a cancer diagnosis, biopsy of the nodules would be required. You said you would not want to have such a biopsy done at this time, as you would not be interested in pursing chemotherapy or radiation therapy if it were positive. For this reason, we consulted our pain management specialist Dr. Collado - she held a goals of care conversation with you. If you desire home hospice services in the future - these can be arranged either by Dr. Collado or by your primary care provider. As a side note, your thyroid function was checked while in the hospital - it was slightly elevated. We started you on a thyroid supplement while under our care. Please continue to take levothyroxine 25mcg, daily. Your primary care provider (PCP) will likely recheck your thyroid function at your next visit. We encourage you to wear your oxygen at home. Please follow up with your PCP (Dr. Rodriguez) within 1 week of discharge. Pending Studies at Discharge: No Stand-Alone Forms: My [facility] [place], Smoking Cessation Medications and DC Order Prescriptions: New azithromycin 250 mg Tablet 250 mg PO QAM 1 Days Qty: 1 RF: 0 amoxicillin-pot clavulanate [Augmentin] 875-125 mg Tablet 1 tab PO BIDM 5 Days Qty: 11 RF: 0 albuterol sulfate [ProAir HFA] 90 mcg/actuation HFA aerosol inhaler 1 inh inhalation Q4H PRN (Reason: shortness of breath or wheezing) Qty: 6.7 RF: 0 levothyroxine 25 mcg capsule 25 mcg PO DAILY Qty: 30 RF: 0 Continued famotidine 20 mg tablet 20 mg PO BID Qty: 60 RF: 11 oxycodone 5 mg tablet 5 mg PO Q6H PRN (Reason: pain) Qty: 20 RF: 0 metoprolol succinate 25 mg tablet extended release 24 hr 25 mg PO QAM RF: 0 Discharge Orders: Discharge Order (Routine); Ordered 12/02/20 Ordered By: Kristina Hills/Other Patient Handouts: What Is Pneumonia?, Treating Pneumonia Admission Data Admit Date/Time: 11/30/20 16:03 Attending Provider: Torito Cunningham Admit Provider: Eddi Serra Primary Care Provider: Jennifer,Harry A. III Other Providers: Eddi Serra ; Jacque Collado ; [facility],Home Healthcare Other Interventions: Discharge Summary Assessment (RN) Last Done: 12/02/20 11:20 Supervising Physician Co-Signing Physician Notes Patient seen and examined with PGY-2 Dr. Ryan. Agree with history, exam findings, assessment and plan of care as outlined. In brief, Mr. Frias is an 85 year old male with history of hypopharyngeal cancer with recent concern for recurrence (followed by ENT) admitted for hypoxia and lethargy. Today, he has no complaints. He is dressed and ready to go home. He does report that he finds the supplemental oxygen annoying since it is not very portable at home. 1. Hypoxia. Resolved now that he is back on his home O2 (2L). Viral panels negative. Likely secondary to aspiration pneumonia and ?COPD exacerbation. 2. Aspiration pneumonia. De-escalated antibiotics from zosyn to Unasyn. Discharge home with Augmentin. Speech eval did show he is aspiration. Recommending nectar thick liquids with small bite size diet. 3. COPD. Questionable history of COPD in the past. Finish azithromycin course. If he truly does have a known history of COPD, could consider anticholingeric inhaler chronically. 4. Hypopharyngeal cancer. Possible recurrence. Appreciate palliative input. 5. Abnormal CTA Chest--?PE. Subsegmental in the RLL vs artifact. LE dopplers negative. Given the negative lower extremity dopplers and strong possibility that the area of possible filling defect may be motion artifact, will defer anticoagulation for now. 6 that changes and suspicion of VTE increases, can start a DOAC. 7. Hypothyroid. TSH 58 with normal T4. Repeat TSH 11. Will reduce synthroid dose to 25mcg. Follow up TSH with PCP. Dispo: discharge home today with home health. I personally spent 35 minutes discharge planning for this patient. Resident Activity Tracking Resident Involvement: Resident Care Provided Care Provided: Adult Hospital Medicine
[2020-12-02] MEDS ORDERED: GABAPENTIN 100 MG CAP PO SCH (09:00)
--- NOTE | 2020-12-02 11:47 | Palliative Care Progress Note ---
Date of Service December 02, 2020 Assessment & Plan (1) Dysphagia: Now on thickened liquids. Monitor with compliance at home. (2) Otalgia, left ear: Improving. Continue gabapentin. (3) Palliative care encounter: Reviewed imaging with his daughter on the phone. She is struggling a bit with his refusal for further workup and her desire to understand more about his disease progression, but respects his wishes. They would like to proceed with home care support at this time. Palliative care will follow as an outpatient to assist with support, symptom management and transition to hospice when appropr iate. Admission and Anticipated Discharge Date Admission Date: November 30, 2020 Subjective Sitting on edge of bed. Reports that otalgia is better today. "It seems to be easing up". He has thickened liquids but is not pleased about them. Review of Systems Review of Systems: Levasy Symptom Assessment Scale Pain 1/3 Dyspnea 0/3 Nausea 0/3 Anxiety 1/3 Palliative Performance Score 50% Physical Exam Constitutional: no acute distress Respiratory: normal respiratory effort; no labored breathing Gastrointestinal (Abdomen): Inspection/Auscultation: abdomen not distended Musculoskeletal: Extremities: extremities normal to inspection Results & Data ([facility]) Vital Signs (Past 12 Hours) Vital Signs Temp Pulse Resp BP Pulse Ox 12/02/20 11:20 97.5 F L 76 16 139/72 91 12/02/20 07:43 97.5 F L 76 16 139/72 91 12/02/20 07:21 82 18 94 12/02/20 00:31 83 18 96 PG Care Time/CCT Total # of Minutes Spent Total Time Spent with Patient: Total time spent is greater than 50% in coordination of care (as documented) at patient's floor/unit and/or counseling patient: Total time spent 35 minutes with more than 50% of time spent on family support and education, symptom management Coding Level of Care Code 66542 Subseq Hosp Care Lvl 3 Diagnoses Dysphagia R13.10 Otalgia, left ear H92.02 Palliative care encounter Z51.5
[2020-12-02] MEDS ORDERED: AMOXICILLIN/CLAVULANATE 875 MG TAB PO SCH (17:00)
== END 2020-12-02 12:17 | disposition home health service (06) ==
LOC: ED 11:21 → INTOOBSV 16:03 → SUATTDRO 16:03 → 3W 16:03